=== PATIENT | male | born 1960 | race Caucasian/White ===

== ENCOUNTER 2017-11-19 08:08 | Emergency (ER) | payer OTHER ==
[~2017-11-19] VITALS: Ht 175.3 cm; Wt 104.3 kg
[~2017-11-19 08:08] MED LIST: ADVAIR 250-501 EACH INH; ALBUTEROL2.5 MG/3 M INH; AMITRIPTYLINE100 MG PO; CATAPRES0.3 MG PO; CLONIDINE HCL0.1 MG PO; CLONIDINE PO; DILTIAZEM HCL120 MG PO; DILTIAZEM HCL30 MG PO; DOXYCYCLINE HY100 MG PO; EFFEXOR PO; MEDROL4 M1 PO; METOPROLOL SUCC25 MG PO; METOPROLOL TART25 MG PO; MOBIC7.5 MG PO; MONTELUKAST SOD10 MG PO; OMEPRAZOLE20 MG PO; PROAIR HFA8.5 GM INH; RANITIDINE HCL150 MG PO; SIMVASTATIN20 MG PO; TRAMADOL HCL50 MG PO; VENLAFAXINE HC100 MG PO; VENLAFAXINE HCL75 MG PO
[2017-11-19] MEDS ORDERED: GABAPENTIN300 MG PO (08:22)
[2017-11-19] MEDS ORDERED: OXYCODONE HCL5 MG PO (08:38)
[2017-11-19] MEDS ORDERED: PREDNISONE20 MG PO (08:38)
== END 2017-11-19 09:10 | disposition home or self-care (01) ==
LOC: ED 08:08
DX: M54.41 Lumbago with sciatica, right side (principal); J44.9 Chronic obstructive pulmonary disease, unspecified; I10 Essential (primary) hypertension; Z88.6 Allergy status to analgesic agent; Z88.8 Allergy status to other drugs, medicaments and biological substances; Z87.891 Personal history of nicotine dependence; Z79.899 Other long term (current) drug therapy
CPT/HCPCS: 96372; 99283; J1100

== ENCOUNTER 2017-12-13 09:44 | Inpatient (IN) | payer OTHER ==
[~2017-12-13] VITALS: Ht 175.3 cm; Wt 108.9 kg
--- OUTSIDE RECORDS SUMMARY | ~2017-12-13 | XMS | Encounter Summary ---
Demographics + + + | Address | [address] | | | [place] [address] | + + + | Home Phone | | + + + | Preferred Language | Unknown | + + + | Marital Status | Single | + + + | Confucianist Affiliation | 1013 | + + + | Race | Unknown | + + + | Ethnic Group | Unknown | + + + Author + + + | Author | [facility] | + + + | Organization | [facility] | + + + | Address | Unknown | + + + | Phone | Unavailable | + + + Support + + + + + | Name | Relationship | Address | Phone | + + + + + | Marianna Ly | ECON | [address] | | | | [place], [place] | | | | | [address] | | + + + + + Care Team Providers + +------+ + | Care Mailroom Personnel Name | Role | Phone | + +------+ + | Tahir Hill | PCP | | + +------+ + Reason for Visit +--------+ + | Reason | Comments | +--------+ + | Other | [facility], Pulmonary Function Test | +--------+ + Encounter Details +--------+ + + + + | Date | Type | Department | Care Team | Description | +--------+ + + + + | 11/01/ | Documentati | [facility] | Adelina Chairez, | Other ([facility] [place] | | 2018 | on Only | Cardiology [place] | [facility] | Clinic, Pulmonary | | | | [address] | | Function Test) | | | | [place] | | | | | | [address] | | | | | | [phone] | | | +--------+ + + + + Social History + +-------+ +--------+ + | Tobacco Use | Types | Packs/Day | Years | Date | | | | | Used | | + +-------+ +--------+ + | Former Smoker | | 3 | 35 | Quit: 06/22/2015 | + +-------+ +--------+ + + +---+---+ + | Smokeless Tobacco: | | | Quit: | | Former User | | | 06/22/20 | | | | | 17 | + +---+---+ + + + +---------+ + | Alcohol Use | Drinks/We | oz/Week | Comments | | | ek | | | + + +---------+ + | No | 0 | 0.0 | heavy drinker in past hx. | | | Standard | | | | | drinks or | | | | | | | | | | equivalen | | | | | t | | | + + +---------+ + + + + | Sex Assigned at | Date Recorded | | | | + + + | Not on file | | + + + as of this encounter Plan of Treatment +--------+---------+ + + + | Date | Type | Specialty | Care Team | Description | +--------+---------+ + + + | 01/31/ | Office | Pulmonology | Florian Lujan MD | | | 2018 | Visit | | [address] | | | | | | [place] [address] | | | | | | [phone] | | | | | | | | +--------+---------+ + + + as of this encounter Visit Diagnoses Not on filein this encounter"
--- OUTSIDE RECORDS SUMMARY | ~2017-12-13 | XMS | Encounter Summary ---
Demographics + + + | Address | [address] | | | [place] [address] | + + + | Home Phone | | + + + | Preferred Language | Unknown | + + + | Marital Status | Single | + + + | Yazdanism Affiliation | 1013 | + + + | Race | Unknown | + + + | Ethnic Group | Unknown | + + + Author + + + | Author | [facility] | + + + | Organization | [facility] | + + + | Address | Unknown | + + + | Phone | Unavailable | + + + Support + + + + + | Name | Relationship | Address | Phone | + + + + + | Marianna Ly | ECON | [address] | | | | [address], [place] | | | | | [address] | | + + + + + Care Team Providers + +------+ + | Care Cloth Neutralizer Name | Role | Phone | + +------+ + | Tahir Hill | PCP | | + +------+ + Encounter Details +--------+ + + + + | Date | Type | Department | Care Team | Description | +--------+ + + + + | 11/27/ | Documentati | [facility] | Issac Blackburn MA | | | 2018 | on Only | Cardiology [place] | | | | | | [address] | | | | | | [place] | | | | | | [address] | | | | | | [phone] | | | +--------+ + + + [...] [address] | | | | | | [place] [address] | | | | | | [phone] | | | | | | | | +--------+---------+ + + + as of this encounter Visit Diagnoses Not on filein this encounter"
--- OUTSIDE RECORDS SUMMARY | ~2017-12-13 | XMS | Encounter Summary ---
Demographics + + + | Address | [address] | | | [place] [address] | + + + | Home Phone [...] + + + | Author | [facility] | + + + | Organization | [facility] | + + + | Address | Unknown | + + + | Phone | Unavailable | + + + Support + + + + + | Name | Relationship | Address | Phone | + + + + + | Marianna Ly | ECON | [address] | | | | | [address], [place] | | | | | [address] | | + + + + + Care Team Providers + +------+ + | Care Electron Gun Inspector Name | Role | Phone | + [...] [place] | | | | | | [address] | | | | | | [phone] | | | +--------+ + + + [...] | | | | | [place] [address] | | | | | | [phone] | | | | | | | | +--------+---------+ + + + as of this encounter Visit Diagnoses Not on filein this encounter"
--- OUTSIDE RECORDS SUMMARY | ~2017-12-13 | XMS | Encounter Summary ---
Demographics + + + | Address | [address] | | | [place] [address] | + + + | Home Phone | | + + + | Preferred Language | Unknown | + + + | Marital Status | Single | + + + | Taoist Affiliation | 1013 | + + + | Race | Unknown | + + + | Ethnic Group | Unknown | + + + Author + + + | Author | [facility] | + + + | Organization | [facility] | + + + | Address | Unknown | + + + | Phone | Unavailable | + + + Support + + + + + | Name | Relationship | Address | Phone | + + + + + | Marianna Ly | ECON | [address] | | | | | [address], [place] | | | | | [address] | | + + + + + Care Team Providers + +------+ + | Care Beater Room Supervisor Name | Role | Phone | + +------+ + | Tahir Hill | PCP | | + +------+ + Encounter Details +--------+ + + + + | Date | Type | Department | Care Team | Description | +--------+ + + + + | 10/09/ | Telephone | [facility] | Lisandra Hurtado, | | | 2017 | | Pulmonology [address] | SLATE CUTTER OPERATOR | | | | | [address] | | | | | | [place] | | | | | | [address] | | | | | | [phone] | | | +--------+ + + + [...] | | | | | [place] [address] | | | | | | [phone] | | | | | | | | +--------+---------+ + + + as of this encounter Visit Diagnoses Not on filein this encounter"
--- OUTSIDE RECORDS SUMMARY | ~2017-12-13 | XMS | Clinical Summary ---
Demographics + + + | Address | [address] | | | [place] [address] | + + + | Home Phone | | + + + | Preferred Language | Unknown | + + + | Marital Status | Single | + + + | Jehovah'S Witness Affiliation | 1013 | + + + | Race | Unknown | + + + | Ethnic Group | Unknown | + + + Author + + + | Author | [facility] | + + + | Organization | [facility] | + + + | Address | Unknown | + + + | Phone | Unavailable | + + + Support + + + + + | Name | Relationship | Address | Phone | + + + + + | Marianna Ly | ECON | [address] | | | | [address], [place] | | | | | [address] | | + + + + + Care Team Providers + +------+ + | Care Account Development Specialist Name | Role | Phone | [...] | 2018 | on Only | | LOAN REVIEW OFFICER | JAMES Hill) | +--------+ + + + + | 11/01/ | Documentati | | Adelina Chairez, | Other ([facility] | | 2017 | on Only | | LOAN REVIEW OFFICER | Clinic, Pulmonary | | | | [...] | | | | | | type ([facility]); | | | | | | Thoracoabdominal [...] | | | 2017 | | | LOAN REVIEW OFFICER | | +--------+ + + + + [...] [address] | | | | | | [place] [address] | | | | | | [phone] | | | | | | | [...] Laboratory | + + + | | [address] [place] [address] | + + + + + | [...] | e': 0.07 m/s Lateral E/e': 7.35 Gas Combustion Engineer: Authenticated | | by: JORGE NOVAK MD Report Date/Time: 10-30-2017 17:52:14 | + + + + | Procedure Note | + + | Jayce, Rad Results In - 10/30/2017 6:00 PM PST Patient Name: Abena Win of | | : 1960ccession: [id number] Physician: JORGE NOVAK MD | | INDICATIONS [...] mlLAESV Index (A-L): 24.66 ml/m2LAAs A2C: 15.85 lb3WHPND A-L | | A2C: 42.05 mlLALs A2C: 5.07 cmLAAs A4C: 20.65 ip4ILVUX A-L A4C: 68.39 mlLALs | | A4C: 5.29 cmRAAs: 16.87 [id number] A-L: 44.78 mlRAESV MOD: 45.69 mlRALs: 5.39 | | cmTAPSE: 2.19 cmAV maxP.05 mmHgAV meanP.73 mmHgAV Vmax: 1.32 m/Mariam | | Vmean: 0.90 m/Mariam VTI: 29.89 cmAVA Vmax: 3.41 cm2AVA (VTI): 3.01 md1MRZM Vmax: | | 0.00 cm2/m2AVAI (VTI): 0.00 cm2/m2LVOT maxP.63 mmHgLVOT meanP.94 mmHgLVSI | | Dopp: 40.60 ml/m2LVSV Dopp: 90.15 mlLVOT Vmax: 1.07 m/sLVOT Vmean: 0.63 m/sLVOT | | VTI: 21.41 cmMV A Porter: 0.37 m/sMV DecT: 232.01 msMV E Porter: 0.58 m/sMV E/A | | Ratio: 1.53 Septal e': 0.08 m/sSeptal E/e': 7.16 Lateral e': 0.07 m/sLateral | | E/e': 7.35 Gas Combustion Engineer: Authenticated by: Jean Marie LEMUS Date/Time: 10-30-2017 [...] | |Lateral E/e': 7.35 | | | |Gas Combustion Engineer: | |Authenticated by: JORGE NOVAK MD | [...] + | Blood | [facility] [address] | | | [address] | + + + Transferrin (10/17/2017 7:42 AM) + +--------+ + | Component | Value | Ref Range | + +--------+ + | TRANSFERRIN | 245.11 | 180 - 329 | + +--------+ + + + + | Specimen | Performing Laboratory | + + + | Blood | [facility] [address] | | | [address] | + + + Ferritin (10/17/2017 7:42 AM) + +-------+ + | Component | Value | Ref Range | + +-------+ + | FERRITIN | 162.8 | 30 - 400 ng/mL | + +-------+ + + + + | Specimen | Performing Laboratory | + + + | Blood | [facility] [address] [place], [facility] [address] [place], [place] | | | [address] | + + + Lipid panel (10/17/2017 [...] | + + + | Blood | [facility] [address] [place] [address] [facility] [address] [place], [place] | | | [address] | + + + Comprehensive metabolic panel [...] + | Blood | [facility] [address] [place] | | | [address] | + + + CBC W/Auto Diff [...] | + + + | Blood | [facility] [address] [place] [address], [place] | | | [address] | + + + EKG STANDARD 12 [...] + + + + | Calculated P [place] | 42 | degrees | + + + + | Calculated R [place] | 53 | degrees | + + + + | Calculated T [place] | 60 | degrees | + + + + | Diagnosis | Please refer to Providers office visit note | | | | for Providers Interpretation.Confirmed by | | | | [facility] [place] Read Only, PETRA Martino ([id number]), | | | | loan expeditor Issac Blackburn ([id number]) on 10/16/2017 | | | | 4:56:19 PM | | + + + + + + + | Specimen | Performing Laboratory | + + + | | [facility] [address] [address] | + + + from Last 3 [...] | | [place] | | | | [address] | | | HOME HEALTH REGISTERED NURSE | | | | | + +--------+ [...] | em[place] | | | [address] | [address] | + +--------+ +--------+ + +
--- OUTSIDE RECORDS SUMMARY | ~2017-12-13 | XMS | Encounter Summary ---
Demographics + + + | Address | [address] | | | [place] [address] | + + + | Home Phone | | + + + | Preferred Language | Unknown | + + + | Marital Status | Single | + + + | Mandaeism Affiliation | 1013 | + + + | Race | Unknown | + + + | Ethnic Group | Unknown | + + + Author + + + | Author | [facility] | + + + | Organization | [facility] | + + + | Address | Unknown | + + + | Phone | Unavailable | + + + Support + + + + + | Name | Relationship | Address | Phone | + + + + + | Marianna Ly | ECON | [address] | | | | | [address], [place] | | | | | [address] | | + + + + + Care Team Providers + +------+ + | Care Lead Systems Analyst Name | Role | Phone | + [...] [place] | | | | | | [address] | | | | | | [phone] | | | +--------+ + + + [...] [address] | | | | | | [place] [address] | | | | | | [phone] | | | | | | | [...] | + + + | Blood | [facility] [place] | | | [address] | + + + Comprehensive metabolic panel [...] + + | Blood | [facility] [address] [place] [address], [facility] [address] [place] | | | [address] | + + + Transferrin (10/17/2017 7:42 AM) + +--------+ + | Component | Value | Ref Range | + +--------+ + | TRANSFERRIN | 245.11 | 180 - 329 | + +--------+ + + + + | Specimen | Performing Laboratory | + + + | Blood | [facility] [address] [place] [address] [place] | | | [address] | + + + Ferritin (10/17/2017 7:42 AM) + +-------+ + | Component | Value | Ref Range | + +-------+ + | FERRITIN | 162.8 | 30 - 400 ng/mL | + +-------+ + + + + | Specimen | Performing Laboratory | + + + | Blood | [facility] [address] | | | [address] | + + + Iron panel (10/17/2017 [...] + | Blood | [facility] 1100 [facility] [address] [place], [place] | | | [address] | + + + CBC W/Auto Diff [...] + | Blood | [facility] [address] [place] | | | [address] | + + + in this encounter Visit Diagnoses Not on filein this encounter"
--- OUTSIDE RECORDS SUMMARY | ~2017-12-13 | XMS | Encounter Summary ---
Demographics + + + | Address | [address] | | | [place] [address] | + + + | Home Phone | | + + + | Preferred Language | Unknown | + + + | Marital Status | Single | + + + | Latter Day Affiliation | 1013 | + + + | Race | Unknown | + + + | Ethnic Group | Unknown | + + + Author + + + | Author | [facility] | + + + | Organization | [facility] | + + + | Address | Unknown | + + + | Phone | Unavailable | + + + Support + + + + + | Name | Relationship | Address | Phone | + + + + + | Marianna Ly | ECON | [address] | | | | [address], [place] | | | | | [address] | | + + + + + Care Team Providers + +------+ + | Care Head Of Visual Merchandising Name | Role | Phone | + +------+ + | Tahir Hill SHIP JOINER | PCP | | + +------+ + [...] | | Required | | Essential | CENTRAL SUPPLY NURSE [address] | Sleep | | | | | hypertension | [address]ra [address] | Disorders | | | | | with goal | [facility] | [facility] | | | | | blood | [place], [place] | HOSPITAL | | | | | pressure | [address] | [address] | | | | | less than | Phone: | [address] | | | | | 130/80 | [phone] | [place], [place] | | | | | Chronic | Fax: | [address] | | | | | obstructive | [phone] | Phone: | | | | | pulmonary | | [phone] | | | | | disease, | | Fax: | | | | | unspecified | | [phone] | | | | | COPD type | | | | | | | ([facility]) | | | | | | [...] | | / Cardiology | (primary) | CENTRAL SUPPLY NURSE [address] | CENTRAL SUPPLY NURSE [address] | | | | | hypertension | Mayra Ruby | Mayra Ruby | | | | | f/u | [facility] | [facility] | | | | | annual-Vogel | [place], [place] | [place] | | | | | transfer | [address] | [address] Phone: | | | | | Procedures | Phone: | [phone] | | | | | PA OFFICE | [phone] | Fax: | | | | | OUTPATIENT | Fax: | [phone] | | | | | VISIT LEVEL | [phone] | | | | | | 1 [...] | | 2018 | Visit | Cardiology [place] | NASREEN Chen [address] | Dx); Essential | | | | [address] | Mayra Lopez F | hypertension with | | | | [address] | [place] [address] | goal blood pressure | | | | [place] [address] | [phone] | less than 130/80; | | | | [phone] | | Hyperlipidemia, | | | | [...] ou fasting labs to be done at [facility] and also ordered you an Echo to be done at [facility] Take Vit b12 again I have ordered refill on Atorvastatin and metoprolol for one year Consider using light compression knee high socks, look like soccer socks to help with varic ose veins I have referred you to Sleep lab at [facility] for sleep apnea evaluation See me [...] of Dr. Lujan on July [address] [facility] documents that his COPD has been well-controlled [...] without it. 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 He also has not had any [...] so I have referred him to the [facility] sleep lab for further evaluation of his [...] past surgical history. Problem list. Domonique ArenasNASREEN [facility] Cardiology 10/16/2017in this encounter Plan of Treatment +--------+---------+ + + + | Date | Type | Specialty | Care Team | Description | +--------+---------+ + + + | 01/31/ | Office | Pulmonology | Florian Lujan MD | | | 2017 | Visit | | [address] | | | | | | [place] [address] | | | | | | [phone] | | | | | | | [...] Laboratory | + + + | | [address] [place] [address] | + + + + + | [...] | e': 0.07 m/s Lateral E/e': 7.35 Network Designer: Authenticated | | by: JORGE NOVAK MD Report Date/Time: 10-30-2017 17:52:14 | + + + + | Procedure Note | + + | Jayce, Rad Results In - 10/30/2017 6:00 PM PST Patient Name: Abena Win of | | : 1960ccession: [id number] Physician: JORGE NOVAK MD | | INDICATIONS [...] mlLAESV Index (A-L): 24.66 ml/m2LAAs A2C: 15.85 si1JPSWQ A-L | | A2C: 42.05 mlLALs A2C: 5.07 cmLAAs A4C: 20.65 mh9QIVAC A-L A4C: 68.39 mlLALs | | A4C: 5.29 cmRAAs: 16.87 qh5ICTGI A-L: 44.78 mlRAESV MOD: 45.69 mlRALs: 5.39 | | cmTAPSE: 2.19 cmAV maxP.05 mmHgAV meanP.73 mmHgAV Vmax: 1.32 m/Mariam | | Vmean: 0.90 m/Mariam VTI: 29.89 cmAVA Vmax: 3.41 cm2AVA (VTI): 3.01 vp0VTUX Vmax: | | 0.00 cm2/m2AVAI (VTI): 0.00 cm2/m2LVOT maxP.63 mmHgLVOT meanP.94 mmHgLVSI | | Dopp: 40.60 ml/m2LVSV Dopp: 90.15 mlLVOT Vmax: 1.07 m/sLVOT Vmean: 0.63 m/sLVOT | | VTI: 21.41 cmMV A Porter: 0.37 m/sMV DecT: 232.01 msMV E Porter: 0.58 m/sMV E/A | | Ratio: 1.53 Septal e': 0.08 m/sSeptal E/e': 7.16 Lateral e': 0.07 m/sLateral | | E/e': 7.35 Network Designer: Authenticated by: Jean Marie LEMUS Date/Time: 10-30-2017 [...] | |Lateral E/e': 7.35 | | | |Network Designer: | |Authenticated by: JORGE NOVAK MD | [...] + + + + | Calculated P [place] | 42 | degrees | + + + + | Calculated R [place] | 53 | degrees | + + + + | Calculated T [place] | 60 | degrees | + + + + | Diagnosis | Please refer to Providers office visit note | | | | for Providers Interpretation.Confirmed by | | | | [facility] Read Only, PETRA Martino (502), | | | | assignment desk editor Issac Blackburn ([id number]) on 10/16/2017 | | | | 4:56:19 PM | | + + + + + + + | Specimen | Performing Laboratory | + + + | | [facility] [address] [facility] [address] | + + + in this encounter [...]
--- OUTSIDE RECORDS SUMMARY | ~2017-12-13 | XMS | Clinical Summary ---
Demographics + + + | Address | [address] | | | [place] [address] | + + + | Home Phone | | + + + | Preferred Language | Unknown | + + + | Marital Status | | + + + | Scientology Affiliation | 1013 | + + + | Race | Unknown | + + + | Ethnic Group | Unknown | + + + Author + + + | Author | [facility] | | | and [place] | + + + | Organization | [facility] | | | and [...] [address], [place] | | | | | [address] | | + + + + + Care Team Providers + +------+ + | Care Automotive Professional Name | Role | Phone | + [...] | | | | | | | ([facility]) | | | | | | | [...] | 1/20 | | e | | ([facility]) | | | | 16 | | [...] + + + + + | Overview: [facility] | + + + +---+ [...] | MODA | xxxxxxxx | Medica | +[id number]- | | | MEDICAID HMO | HEALTH [...] emma | | | [address] | [place] [address] | + +--------+ +--------+ + +
--- OUTSIDE RECORDS SUMMARY | ~2017-12-13 | XMS | Encounter Summary ---
Demographics + + + | Address | [address] | | | [place] [address] | + + + | Home Phone [...] + + + | Author | [facility] | + + + | Organization | [facility] | + + + | Address | Unknown | + + + | Phone | Unavailable | + + + Support + + + + + | Name | Relationship | Address | Phone | + + + + + | Marianna Ly | ECON | [address] | | | | | [address], [place] | | | | | [address] | | + + + + + Care Team Providers + +------+ + | Care Armed Guard Name | Role | Phone | + [...] hypertension with | | | | | [place] [address] | goal blood pressure | | | | | [phone] | less than 130/80; | | | [...] [address] | | | | | | [place] [address] | | | | | | [phone] | | | | | | | [...] Laboratory | + + + | | [address] [address] | + + + + + | [...] | e': 0.07 m/s Lateral E/e': 7.35 Compound Filler: Authenticated | | by: JORGE NOVAK MD Report Date/Time: 10-30-2017 17:52:14 | + + + + | Procedure Note | + + | Jayce, Rad Results In - 10/30/2017 6:00 PM PST Patient Name: Abena Win of | | : 1960ccession: [id number] Physician: JORGE NOVAK MD | | INDICATIONS [...] mlLAESV Index (A-L): 24.66 ml/m2LAAs A2C: 15.85 [id number] A-L | | A2C: 42.05 mlLALs A2C: 5.07 cmLAAs A4C: 20.65 bl2EBZRL A-L A4C: 68.39 mlLALs | | A4C: 5.29 cmRAAs: 16.87 qm2DILHY A-L: 44.78 mlRAESV MOD: 45.69 mlRALs: 5.39 | | cmTAPSE: 2.19 cmAV maxP.05 mmHgAV meanP.73 mmHgAV Vmax: 1.32 m/Mariam | | Vmean: 0.90 m/Mariam VTI: 29.89 cmAVA Vmax: 3.41 cm2AVA (VTI): 3.01 wm2GBKS Vmax: | | 0.00 cm2/m2AVAI (VTI): 0.00 cm2/m2LVOT maxP.63 mmHgLVOT meanP.94 mmHgLVSI | | Dopp: 40.60 ml/m2LVSV Dopp: 90.15 mlLVOT Vmax: 1.07 m/sLVOT Vmean: 0.63 m/sLVOT | | VTI: 21.41 cmMV A Porter: 0.37 m/sMV DecT: 232.01 msMV E Porter: 0.58 m/sMV E/A | | Ratio: 1.53 Septal e': 0.08 m/sSeptal E/e': 7.16 Lateral e': 0.07 m/sLateral | | E/e': 7.35 Compound Filler: Authenticated by: Jean Marie LEMUS Date/Time: 10-30-2017 [...] | |Lateral E/e': 7.35 | | | |Compound Filler: | |Authenticated by: JORGE NOVAK MD | [...]
--- OUTSIDE RECORDS SUMMARY | ~2017-12-13 | XMS | Encounter Summary ---
Demographics + + + | Address | [address] | | | [place] [address] | + + + | Home Phone [...] + + + | Author | [facility] | + + + | Organization | [facility] | + + + | Address | Unknown | + + + | Phone | Unavailable | + + + Support + + + + + | Name | Relationship | Address | Phone | + + + + + | Marianna Ly | ECON | [address] | | | | [address], [place] | | | | | [address] | | + + + + + Care Team Providers + +------+ + | Care Strapping Machine Tender Name | Role | Phone | + +------+ + | [place] SILK CONDITIONER | PCP | | + +------+ + [...] | | | | | hypertension | LURER [address] | | | | | | with goal | [place] | | | | | | blood | John F | | | | | | pressure | [place] | | | | | | less than | [id number] | | | | | | 130/80 | Phone: | | | | | | Hyperlipidem | [phone] | | | | | | ia, | Fax: | | | | | | unspecified | [phone] | | | | | | hyperlipidem [...] | | | [address] | [place] [address] | less than 130/80 | | | | [place] [address] | [phone] | (Primary Dx); | | | | [phone] | | Hyperlipidemia, | | | | [...] you an Echo to be done at [facility] in one year, see me back in one year in this encounter Progress Notes Mattiedolores Domonique ChenNASREEN - 11/27/2017 11:00 AM PDTFormatting of this note may be differen t from the original. Date of visit: 11/27/2017 Primary Care Physician: TAHIR HILL CHIEF COMPLAINT: Chief Complaint Patient presents with Follow-up 2 month - echo STA 10/30/17 HISTORY OF PRESENT ILLNESS: Mr. Joselin Win, [place], is a 57-year-old man who is here [...] and platelet count. His Echo performed at [facility] on October 30, 2017 reported a [...] be seen by Dr. Glez at the [facility] sleep lab in January to get [...] marijuana, crack, mushrooms. Exercises with tasiks in [employer], walking, a nd tolerates. 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 [...] EK2015: Normal sinus rhythm. Rate 63 bpm, AK 144 ms, QRS 94 ms, QTC 407 ms, perso phoenix reviewed by me EK2017: Normal sinus rhythm. Rate 63 bpm, AK 146 ms, QRS 96 ms, QTC 427 [...] which [facility]. His labs performed 10/17/17 showed normal [...] and platelet count. His Echo performed at [facility] on October 30, 2017 reported a [...] He will be following up with the [place] sleep lab in January, and hopefully will [...] past surgical history. Problem list. NASREEN Boyer [facility] Cardiology 11/27/2017in this encounter Plan of Treatment +--------+---------+ + + + | Date | Type | Specialty | Care Team | Description | +--------+---------+ + + + | 01/31/ | Office | Pulmonology | Florian Lujan MD | | | 2018 | Visit | | [address] | | | | | | [place] [address] | | | | | | [phone] | | | | | | | [...]
--- OUTSIDE RECORDS SUMMARY | ~2017-12-13 | XMS | Encounter Summary ---
Demographics + + + | Address | [address] | | | [place] [address] | + + + | Home Phone [...] + + + | Author | [facility] | + + + | Organization | [facility] | + + + | Address | Unknown | + + + | Phone | Unavailable | + + + Support + + + + + | Name | Relationship | Address | Phone | + + + + + | Marianna Ly | ECON | [address] | | | | [address], [place] | | | | | [address] | | + + + + + Care Team Providers + +------+ + | Care Professional Athletes Coach Name | Role | Phone | + [...] | on Only | Cardiology Dalila | JAVASCRIPT DEVELOPER | JAMES Hill) | | | | [address] | | | | | | [place] | | | | | | [address] | | | | | | [phone] | | | +--------+ + + + [...] | | | | | [place] [address] | | | | | | [phone] | | | | | | | | +--------+---------+ + + + as of this encounter Visit Diagnoses Not on filein this encounter"
[~2017-12-13 09:44] MED LIST changes: +GABAPENTIN300 MG PO; +OXYCODONE HCL5 MG PO; +PREDNISONE20 MG PO
[2017-12-19] MEDS ORDERED: NORVASC5 MG PO (15:57)
[2017-12-19] MEDS ORDERED: LIPITOR40 MG PO (15:58)
[2017-12-19] MEDS ORDERED: HYDROCHLOROTH12.5 MG PO (15:59)
[2017-12-19] MEDS ORDERED: DICLOFENAC SODI50 MG PO (16:01)
[2017-12-19] MEDS ORDERED: PROTONIX40 MG PO (16:02)
[2017-12-19] MEDS ORDERED: FLOMAX0.4 MG PO (16:03)
--- NOTE | 2017-12-19 16:55 | NUR ---
PREADMIT PT CARE NOTE THIS IS A 57 YEAR OLD MALE THAT IS SCHEDULED TO HAVE A RIGHT TOTAL HIP ARTHROPLASTY ON 12/26/[address] MIRIAM BENTON. PT STATES THAT HE LIVES ALONE IN A TRAVEL TRAILER WITH 3 STEPS INTO IT. STATES HE HAS A VERY SMALL TUB/SHOWER COMBINATION BUT IS GOING TO BE USING THE SHOWER PROVIDED BY THE [facility], IT IS A WALK IN SHOWER. STATES HE DOES NEED A FRONT WHEELED WALKER AND WOULD LIKE IT FROM [facility]. STATES HE IS SUPPOSED TO WEAR A CPAP BUT JUST CAN'T SLEEP WITH IT ON, MAKES HIM WORSE TO WEAR IT. SO HE HASN'T WORN IT IN A VERY LONG TIME AND IS SCHEDULED FOR ANOTHER SLEEP STUDY IN JANUARY. PT SEES RAFAELA MAHAN FOR HIS PCP AND GOES TO [facility] FOR HIS MEDS. COPY SENT TO DR MORSE OFFICE.
[2017-12-26] MEDS ORDERED: INCRUSE ELLI62.5 MCG INH (11:19)
[2017-12-26] MEDS ORDERED: RA CENTRAL-VIT1 EAC8 PO (11:22)
[2017-12-26] MEDS ORDERED: ADVAIR 500-501 EACH INH (11:22)
[2017-12-26] MEDS ORDERED: VITAMIN B-1100 MG PO (11:24)
--- NOTE | 2017-12-26 12:05 | NUR ---
12/26/17 1204 Gilda Yu 1155 PATIENT ARRIVES TO PACU AWAKE, BUT DROWSY. RESP EVEN AND UNLABORED, MASK AT 6 LITERS. ENCOURAGED TO DEEP BREATHE AND COUGH. 1200 PATIENT MORE AWAKE, ASKING QUESTIONS APPROPRIATELY. CONTINUES TO WEAR MASK AT 6 LITERS. CONTINUE TO ENCOURAGE TO DEEP BREATHE AND COUGH.
--- NOTE | 2017-12-26 12:50 | NUR ---
PT ARRIVED TO ROOM 108 FROM PACU, BEDSIDE REPORT FROM BREANA BINDER TECHNICIAN. PT REPORTS NO NAUSEA OR PAIN AT THIS TIME PT ON ROOM, HE HAS INTERMITTEN DE-SATURATIONS DOWN TO 85%, PT PLACED ON 2L FOR NOW WILL MONITOR.
--- NOTE | 2017-12-26 13:30 | NUR ---
PATIENT SITTING UP IN BED AND EATING. RN IN ROOM. PATIENTS FRIEND IN ROOM VISITING. CALL LIGHT WITHIN REACH. NO OTHER NEEDS AT THIS TIME.
--- NOTE | 2017-12-26 15:04 | NUR ---
ANTIBIOTIC AND TORADOL GIVEN AT THIS TIME. PT RESTING IN BED AND DENIES PAIN. PT IN GOOD SPIRITS AND DENIES FURTHER NEEDS. DENIES FURTHER NEEDS. CALL LIGHT WITHIN REACH.
--- NOTE | 2017-12-26 15:31 | NUR ---
MED REC COMPLETE WITH [facility] REFILL HISTORY AND PATIENT INTERVIEW.
--- NOTE | 2017-12-26 15:35 | NUR ---
PT BLADDER SCANNED AT THIS TIME FOR 465ML AT THIS TIME
--- NOTE | 2017-12-26 16:16 | NUR ---
PATIENT SITTING UP IN BED VISITING WITH A VISITOR. FRESH ICE WATER. PATIENT STATES PAIN LEVEL IS A 3 OUT OF 10. PATIENT STATES HE STILL DOESN'T HAVE A NEED TO GO TO THE BATHROOM YET. CALL LIGHT WITHIN REACH. NO OTHER NEEDS AT THIS TIME.
--- NOTE | 2017-12-26 16:54 | NUR ---
PT UP TO BATHROOM WITH PHYSICAL THERAPY AND THIS RN. PT UNABLE TO VOID. PT AMBULATING IN HALLS WITH PHYSICAL THERAPY AND THEN WILL TRY TO URINATE AGAIN, IF UNABLE TO, WILL BLADDER SCAN AND IF NEEDED PLACE TEIXEIRA
--- NOTE | 2017-12-26 16:55 | NUR ---
PATIENT WALKING IN HALLS WITH PT.
--- NOTE | 2017-12-26 17:24 | NUR ---
PT BLADDER SCANNED FOR 776ML. PT AGREEABLE TO HAVE TEIXEIRA PLACED.
--- NOTE | 2017-12-26 18:15 | NUR ---
PT HAS BEEN UP WITH ONE PERSON ASSIST FWW. HE HAS REPORTED 2/10 PAIN WITH ACTIVITY AND THAT IS TOLERABLE PER PT REPORT. HE HAS TEIXEIRA PLACED. HAS WORKED WITH PHYSICAL THERAPY THIS AFTERNOON, AMBULATED IN HALLS AND WORKED WITH CRISTO IN PHYSICAL THERAPY ROOM. HE HAS HAD NO NAUSEA TOLERATING REGULAR CARDIAC DIET WELL. DRESSING IS CDI. PT ON ROOM AIR AT THIS TIME OXYGEN SATURATION 98%. PT WAS GIVEN NUBAIN FOR ITCHING ONCE THAT WAS EFFECTIVE.
--- NOTE | 2017-12-26 18:37 | NUR ---
THIS SPEECH/LANGUAGE THERAPIST ASSISTED PATIENT FROM THE CHAIR TO THE BED. 1 PERSON ASSIST WITH FWW. PATIENT IS NOW SITTING UP IN BED RESTING AND WATCHING TV. FRESH ICE WATER. ICE BAGS. PATIENT STATES PAIN IS 8 OUT OF 10 AFTER TRANSFER. RN NOTIFIED. CALL LIGHT WITHIN REACH. NO OTHER NEEDS AT THIS TIME.
--- NOTE | 2017-12-26 19:38 | NUR ---
IN ROOM FOR REPORT. PT IS AWAKE IN BED AND HAS PAIN, DAY SHIFT RN WILL GET PT IV PAIN MEDS, PT DENIES FURTHER NEEDS AT THIS TIME. CALL LIGHT IS WITHIN REACH.
--- NOTE | 2017-12-26 20:04 | NUR ---
IN ROOM GIVING MEDICATIONS, PT STATES PAIN IS A 4/10 AT THIS TIME AND IS COMFORTABLE. PT DENIES FURTHER NEEDS AT THIS TIME.
--- NOTE | 2017-12-26 21:25 | NUR ---
PT IS AWAKE IN BED, EVENING MEDICATIONS WERE GIVEN. PT REPORTS PAIN IS TOLERABLE AT THIS TIME. DRESSING IS CDI AND ICE PACKS ARE IN PLACE. SCD'S AND HEEL PROTECTORS ARE IN PLACE. PT IS ON RA AND DENIES NAUSEA. PT IS READY FOR BED AND CALL LIGHT IS IN REACH.
--- NOTE | 2017-12-26 23:21 | NUR ---
PT IS RESTING WITH EYES CLOSED, RESPIRATIONS ARE EVEN AND NONLABORED. CALL LIGHT IS WITHIN REACH.
--- NOTE | 2017-12-27 01:08 | NUR ---
PT IS RESTING WITH EYES CLOSED, RESPIRATIONS ARE EVEN AND NONLABORED. CALL LIGHT IS WITHIN REACH.
--- NOTE | 2017-12-27 01:55 | NUR ---
WOKE PT TO GIVE MEDS, HE REPORTS PAIN IS TOLERABLE AT THIS TIME. REPOSITIONED PT IN BED. CALL LIGHT IS WITHIN REACH.
--- NOTE | 2017-12-27 04:42 | NUR ---
PT DID WELL THROUGH THE NIGHT WITH SCHEDULED TORADOL AND TYLENOL. HE HAS PRN DILAUDID IF NEEDED, WHICH HAS HAS NOT ASKED FOR THROUGH THE NIGHT. 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 INCISION SITE IS CDI WITH SOME BRUISING NOTED, HE HAS ALTERNATED ICE PACKS AND IS WEARING SCD'S, HEEL PROTECTORS, ABDUCTOR PILLOW, AND PULSE OX. URINE OUTPUT IS QS, PT HAS NOT HAD A BM YET BUT IS PASSING GAS.
--- NOTE | 2017-12-27 04:48 | NUR ---
PT IS RESTING WITH EYES CLOSED, RESPIRATIONS ARE EVEN AND NONLABORED. CALL LIGHT IS WITHIN REACH.
--- NOTE | 2017-12-27 06:16 | NUR ---
REMOVED TEIXEIRA PER ORDER.
--- NOTE | 2017-12-27 11:15 | NUR ---
PATIENT SITTING UP IN CHAIR RELAXING. PATIENTS EYES ARE CLOSED AND APPEARS TO BE SLEEPING. CALL LIGHT WITHIN REACH. NO OTHER NEEDS AT THIS TIME.
--- NOTE | 2017-12-27 12:11 | NUR ---
PT SITTING IN CHAIR-ALERT, ORIENTED AND VISITING WITH A FRIEND. PT SEEMED TO BE IN GOOD SPIRITS, SAID HE PLANS TO LEAP TALL BLDGS SOON! EXTENDED A BLESSING WILL FOLLOW NEEDED
--- NOTE | 2017-12-27 12:12 | NUR ---
PATIENT SITTING UP IN CHAIR AND APPEARS TO BE SLEEPING. PATIENT WOKE UP WHEN THIS FILLER AND TRIMMER CAME IN. PATIENT STATES THAT HE HASN'T SLEPT WELL AT ALL LAST NIGHT SO THAT IS WHY HE HAS BEEN SLEEPY TODAY. FRESH ICE PACK. CALL LIGHT WITHIN REACH. NO OTHER NEEDS AT THIS TIME.
--- NOTE | 2017-12-27 13:17 | NUR ---
PT SITTING UP IN RECLINER REPORTS PAIN AT REST 5-6/10. 4MG PO DILAUDID ADMINISTERED AT THIS TIME, ICE TO SURGICAL SITE. PT ON ROOM AIR, GOOD APPETITE, RIGHT HIP DRESSING CDI
--- NOTE | 2017-12-27 13:22 | NUR ---
PT BLADDER SCANNED AT THIS TIME FOR 368ML AT THIS TIME. PT GIVEN A CUP OF COFFEE AND ENCOURAGED TO DRINK MORE WATER.
--- NOTE | 2017-12-27 13:28 | NUR ---
PATIENT ATE 100% OF LUNCH. PATIENT CALLED AND HAD SPILT COFFEE ALL OVER HIS GOWN. PATIENT CLEANED UP AND NEW GOWN IN PLACE.
--- NOTE | 2017-12-27 14:25 | NUR ---
PATIENT SITTING UP IN CHAIR. PATIENT STATES THAT HE HAS NOT BEEN ABLE TO VOID SINCE TEIXEIRA REMOVAL THIS MORNING. PATIENT SEEMED VERY DROWSY WHILE TAKING VITALS. THE PATIENT SEEMED LIKE HE HAD A HARD TIME KEEPING HIS EYES OPEN. RN NOTIFIED ABOUT NOT VOIDING. CALL LIGHT WITHIN REACH. NO OTHER NEEDS AT THIS TIME.
--- NOTE | 2017-12-27 15:15 | NUR ---
PATIENT GOT BACK TO THE ROOM AFTER WALKING THE HALLS WITH PT AND A WALKER. PATIENT VOIDED APPROXIMATELY 150 MLS IN THE BATHROOM. VERY CONCENTRATED URINE. PATIENT BACK TO RECLINER AND GIVEN 5MG PO DILAUDID FOR 8/10 RT HIP PAIN.
--- NOTE | 2017-12-27 16:05 | NUR ---
TALKED TO PT AGAIN ABOUT A WALKER AND HE STATES HE IS GOING TO USE 2 CANES IN HIS RV TRAILER AND WILL BE USING THE WALKER EVERY WHERE ELSE. FAXED CHART NOTES TO [facility]. THESE INCLUDED FACESHEET, ORDER, H AND P, PROG NOTES, PT EVAL AND NOTES. RECIEVED FAX CONFIRMATION. ALSO CALLED AND SPOKE WITH SETH FROM [facility].
--- NOTE | 2017-12-27 16:36 | NUR ---
PATIENT SITTING UP IN CHAIR RELAXING. CALL LIGHT WITHIN REACH. NO OTHER NEEDS AT THIS TIME.
--- NOTE | 2017-12-27 17:40 | NUR ---
THIS CESSATION SYSTEMS OUTREACH SPECIALIST AND PORSHA VASQUEZ ASSISTED PATIENT TO THE RESTROOM. 2 PERSON WITH FWW. PATIENT VOIDED 500ML. PATIENT IS NOW SITTING UP IN BED WATCHING TV. FRESH ICE WATER. FRESH ICE PACKS. CALL LIGHT WITHIN REACH. HIP WEDGE IN PLACE. NO OTHER NEEDS AT THIS TIME.
--- NOTE | 2017-12-27 17:45 | NUR ---
PATIENT JUST VOIDED 500MLS IN THE COMMODE.AMBULATED FROM RECLINER TO BATHROOM TO BED WITH 1PSBA AND WALKER. PAIN IN THE RT HIP IS 4/10 AND GIVEN 8MG PO DILUADID.
--- NOTE | 2017-12-27 18:36 | NUR ---
PATIENT WAS HAVING WAS UNABLE TO VOID THIS AM AFTER TEIXEIRA DC'D. I TOOK PATIENT OVER FROM PORSHA TOUSSAINT ABOUT 3PM. SHORTLY AFTER PATIENT VOIDED APPROXIMATELY 150MLS. AROUND 1730 PATIENT VOIDED 500MLS IN THE COMMODE. PATIENT'S PAIN IS A 7-8/10 WHEN AMBULATING AND 3-4/10 WHEN SITTING OR LAYING DOWN. PATIENT GIVEN 8 MG OF DILUADID PO AT ABOUT 1745. PATIENT'S PAIN IS AT 3/10 CURRENTLY WHICH IS HIS PAIN GOAL. IV SL. PATIENT EATING AND TAKING FLUIDS WELL.
--- NOTE | 2017-12-27 19:56 | NUR ---
REPORT RECIEVED FROM DAY SHIFT RN. PATIENT RESTING IN BED WATCHING TV. PATIENT DECLINES ANY NEEDS AT THIS TIME. CALL LIGHT WITHIN REACH.
--- NOTE | 2017-12-27 20:18 | NUR ---
VITALS AND I&OS DONE AND CHARTED. HELPED HIM GET TO THE BATHROOM WITH HIS FWW. FRESH WATER GIVEN.
--- NOTE | 2017-12-27 20:20 | NUR ---
PATIENT GIVEN MEDICATIONS PER ORDER. ASSESSMENT COMPLETED. PATIENT RESTING IN BED WATCHING TV. PATIENT DENIES ANY NEEDS. CALL LIGHT WITHIN REACH. PAIN MEDICATION GIVEN SCHEDULED PAIN MEDICATION PER ORDER. PATIENT RATES PAIN 4/10 IN RIGHT HIP. ICE PACKS ON RIGHT HIP. HEEL PROTECTOR, WEDGE, AND SCDS IN PLACE.
--- NOTE | 2017-12-27 20:45 | NUR ---
PATIENT 2100 MEDICATIONS GIVEN PER ORDER. PATIENT CONTINUES TO RATE PAIN 4/10. PATIENT GIVEN PRN PAIN MEDICATION PER REQUEST. NO FURTHER NEEDS NOTED. CALL LIGHT WITHIN REACH.
--- NOTE | 2017-12-27 22:40 | NUR ---
ENTERED ROOM TO REASSES PATIENTS PAIN. IT WAS NOTED ON PULSE OX THAT PATIENTS OXYGEN SATURATION WAS BELOW NORMAL LIMITS. PATIENT PLACED ON 1L VIA NC. CALL LIGHT WITHIN REACH.
--- NOTE | 2017-12-27 23:24 | NUR ---
PATIENT OXYGEN SATURATION IS NOW WNL. PATIENT TITRATED TO .5L VIA NC. PATIENT APPEARS RESTING, EYE MASK IN PLACE. PATIENT RR 16. CALL LIGHT WITHIN REACH.
--- NOTE | 2017-12-28 00:24 | NUR ---
PATIENT APPEARS RESTING WITH EYE MASK IN PLACE. PATIENTS OXYGEN SATURATION 94 ON .5L VIA NC WHILE RESTING. CALL LIGHT WITHIN REACH.
--- NOTE | 2017-12-28 01:30 | NUR ---
PATIENT ASSISTED TO RESTROOM WITH STANDBY ASSIST AND FWW. PATIENT REQUESTED PRN PAIN MEDICATION WITH A PAIN LEVEL OF 8/10 AFTER AMBULATION. PAIN MEDICATION GIVEN PER PATIENT REQUEST. PATIENT 0200 MEDICATIONS GIVEN PER ORDER. PATIENT BACK IN BED WITH WEDGE, HEEL PROTECTORS, AND SCDS IN PLACE. ICE PACKS PLACED ON RIGHT HIP. PATIENT DENIES ANY OTHER NEEDS AT THIS TIME. CALL LIGHT WITHIN REACH.
--- NOTE | 2017-12-28 05:02 | NUR ---
PATIENT RESTED WELL THROUGHOUT THE NIGHT. PATIENT AMBULATES WITH A SBA AND FWW. PATIENTS IV IS SL. PATIENT GIVEN PRN PAIN MEDICATION THROUGH NIGHT FOR RIGHT HIP PAIN WHEN AMBULATING. PATIENTS OXYGEN SATURATIONS DROPPED BELOW 92 DURING THE NIGHT, .5L OF OXYGEN VIA NC WAS ADMINISTERED PER ORDER. PATIENT DRESSING ON RIGHT HIP IS C/D/I. ICE PACKS WERE PLACED. WEDGE, HEEL PROTECTORS, AND SCDS IN PLACE.
--- NOTE | 2017-12-28 06:10 | NUR ---
PATIENT ASSISTED TO RESTROOM BY SBA WITH FWW. PATIENT RELAXING IN RECLINER WATCHING TV. PRN PAIN MEDICATION GIVEN PER PATIENT REQUEST. PATIENT STATED PAIN 12/26. ICE PACK IN PLACE. PATIENT DENIES ANY OTHER NEEDS AT THIS TIME. CALL LIGHT WITHIN REACH. PATIENT GIVEN PRUNE JUICE AND COFFEE PER REQUEST.
--- NOTE | 2017-12-28 07:14 | OR ---
[facility] [address], [place] [address] Signed DATE OF OPERATION: 12/26/2017 SURGEON: Kale Scott MD PREOPERATIVE DIAGNOSIS: End-stage osteoarthritis, right hip. POSTOPERATIVE DIAGNOSIS: End-stage osteoarthritis, right hip. PROCEDURE: Right total hip arthroplasty. ANESTHESIA: Spinal with sedation. SPECIMENS AND COMPLICATIONS: There were no specimens or complications. BLOOD LOSS: About 250 mL. IMPLANTS: A 52 mm Sharon Sector cup with 220 mm screws, a neutral 36 mm liner. There was a size 7 high offset, a Sharon stem with a +5 36 head. WHAT WAS DONE: The patient was taken to the operating room and placed on the table in supine position. After anesthesia was induced and the patient placed in the left lateral decubitus position, he was prepped and draped in a routine sterile fashion. A straight lateral approach was made to the hip through the skin and subcutaneous tissue. Hemostasis was achieved with electrocautery and self-retaining retractors were placed. The deep fascia was incised in line with the skin incision. The self-retaining retractors were then deepened. The anterior 3rd of the gluteus was elevated off the anterior aspect of the greater trochanter and retracted medially. An anterior capsulectomy was then performed and the hip was dislocated. The femoral neck was osteotomized with an oscillating saw after aligning the cut with the cutting jig for the Sharon stem. The head and neck fragments were then removed. A self-retaining retractor was placed and the remaining portion of the labrum was excised with electrocautery. We then excavated the contents of the pulvinar. The femoral head measured about 54 mm. We then began sequential Electronically Signed By: KALE SCOTT MD 12/28/17 0714 PATIENT NAME: BEVERLEY VAZQUEZ OPERATIVE REPORT DATE OF : 64 REPORT #: [id number] PHYSICIAN: KALE SCOTT MD PCP: RAFAELA MAHAN REPORT IS CONFIDENTIAL AND NOT TO BE RELEASED WITHOUT AUTHORIZATION [facility] [address], [place] [address] Signed reaming with a 47 mm hemispherical reamer and reamed up to a size 51, at which point, we actually had a good interference fit. We therefore trialed the 51 trial. We were happy with the alignment, position, and fit, and therefore impacted the 52 mm Sharon Sector cup. Fixation was then augmented with two additional screws. A neutral 36 liner was then placed. The proximal femur was then rotated up into the wound and prepared with a box chisel via canal finder with the lateralizer and a series of reamers followed by broaches. We had a rather secure fit with a size 7 broach. We trialed the hip with a high offset +1.5 head and we were happy with alignment and position. However, the leg appeared to be just slightly short on an AP x-ray taken intraoperatively. We therefore dislocated the hip, removed the trials, and impacted the real size 7 high offset stem and then placed a +5 mm head on the Lockhart taper and relocated the hip. This gave us excellent alignment, position, coverage, and instability. The wound was copiously irrigated and closed in a standard fashion. A sterile dressing was applied. He was awakened and taken to recovery room where he arrived in stable condition. Counts were correct and antibiotic protocols were followed. MD URSULA Carroll/MODL /[id number] Copies: ~ Electronically Signed By: KALE SCOTT MD 12/28/17 0714 PATIENT NAME: BEVERLEY VAZQUEZ JULIO C OPERATIVE REPORT DATE OF : 64 REPORT #: [id number] PHYSICIAN: KALE SCOTT MD PCP: RAFAELA MAHAN REPORT IS CONFIDENTIAL AND NOT TO BE RELEASED WITHOUT AUTHORIZATION
--- NOTE | 2017-12-28 07:33 | NUR ---
BEDSIDE REPORT RECEIVED FROM NICK. PATIENT AWAKE SITTING IN THE CHAIR, A&O. NO APPARENT DISTRESS NOTED. PATIENT REPORTS MINIMAL PAIN ON THE RIGHT HIP. CALL LIGHT IN REACH. WILL CONTINUE TO MONITOR.
--- NOTE | 2017-12-28 08:56 | NUR ---
PATIENT UP WALKING IN THE HALLWAY WITH PHYSICAL THERAPIST. TOLERATED. PATIENT WAS MEDICATED PRIOR TO SUGERY.
--- NOTE | 2017-12-28 09:40 | NUR ---
PATIENT RESTING IN THE CHAIR. DENIES NAUSEA AND SOB AT THIS TIME. SHIFT ASSESSMENT DONE EARLIER AND CHARTED. WAS UP WALKING WITH PT. CALL LIGHT IN REACH. FAMILY IN ROOM AT THIS TIME.
--- NOTE | 2017-12-28 10:08 | NUR ---
PT IS SITTING UP IN CHAIR RESTING SAFELY WITH CALL LIGHT IN REACH. PT DID NOT NEED ANYTHING AT THE MOMENT
--- NOTE | 2017-12-28 10:50 | NUR ---
FRONT WHEEL WALKER DELIVERED TO PT FROM [facility].
--- NOTE | 2017-12-28 12:55 | NUR ---
DR BENTON WAS IN ROOM TO SEE AND EVALUATE PATIENT. PLAN TO DISCHARGE PATIENT HOME TODAY. PATIENT RESTING IN THE CHAIR. PATIENT WAS MEDICATED PRIOR TO PHYSICAL THERAPY. REPORTS MINIMAL PAIN. CALL LIGHT IN REACH.
--- NOTE | 2017-12-28 13:01 | NUR ---
PT WALKING IN LOU WITH , AND WALKED WITH HIM TO HIS RM. THIS WEEK HAS TURNED HIS WORLD UPSIDE DOWN, AND HE IS STILL REELING FROM THE EFFECTS. NEW ONSET DIABETES HAS BEEN DIAGNOSED, AND PT IS ON INFO OVERLOAD. WE HAD A VERY POSITIVE TIME OF DEBRIEFING, AND WORKED TO ENCOURAGE HIM. HE SEEMS VERY THANKFUL THAT HE NOW KNOWS WHAT IS THE PROBLEM, AND EXPRESSED HIS COMMITMENT TO GET HEALTHY. PT REQUESTED PRAYER, WILL FOLLOW NEEDED
[2017-12-28] MEDS ORDERED: DILAUDID4 MG PO (13:16)
[2017-12-28] MEDS ORDERED: OXYCODONE HCL10 MG PO (13:16)
[2017-12-28] MEDS ORDERED: ACETAMINOPHEN650 M1 PO (13:18)
[2017-12-28] MEDS ORDERED: XARELTO10 MG PO (13:19)
--- NOTE | 2017-12-28 13:46 | NUR ---
PT SITTING IN CHAIR-KNIFE IN ONE HAND, AND FORK IN THE OTHER WITH A BIG SMILE ON HIS FACE. HE WAS FINISHING UP HIS LUNCH, WAITING FOR DC. HE SAID HE FEELSCONFIDENT ABOUT WHAT NEE NEEDS TO DO ONCE HE IS DC'D. EXTENDED PT A BLESSING, WILL FOLLOW NEEDED
--- NOTE | 2017-12-28 14:13 | NUR ---
PATIENT WAS UP WALKING IN THE HALLWAY WITH PHYSICAL THERAPIST. NO APPARENT DISTRESS.
--- NOTE | 2017-12-28 17:20 | NUR ---
FAXED CHART NOTES TO [facility]. RECIEVED FAX CONFIRMATION. CHART INCLUDED FACESHEET, H AND P, PROG NOTE, PT EVAL AND NOTES SENT.
--- NOTE | 2017-12-31 18:28 | DS ---
[facility] [address] [place], [place] [address] Signed ADMISSION DATE: 12/26/2017 DISCHARGE DATE: 12/28/2017 FINAL DIAGNOSIS AT THE TIME OF DISCHARGE: Osteoarthritis right hip, end stage. ADDITIONAL DIAGNOSES: 1. Hypertension. 2. Chronic obstructive pulmonary disease. 3. Borderline diabetes. 4. Peptic ulcer disease. 5. Chronic low back pain. 6. Sleep apnea. PROCEDURES PERFORMED: Right total hip arthroplasty. HISTORY OF PRESENT ILLNESS: Beverley is a 57-year-old white male with progressively severe osteoarthritis in the right hip. He no longer got significant symptomatic relief from any conservative modalities and because of his declining ability to ambulate, elected to proceed with total hip arthroplasty. HOSPITAL COURSE: He was admitted on 12/26/2017, to the Day Surgery. He was taken to the operating room, where he underwent a right total hip arthroplasty using a Lafitte cup and a Ciales stem. Postoperatively, he has done extraordinarily well. He was seen in consultation by the hospitalist service who had managed his numerous medical comorbidities expertly. In terms of his hip, his dressing has been clean and dry. His laboratory studies have been stable. On the 2nd postoperative day, he has passed all of his physical therapy goals and is independent and ready to go home. I am going to discharge him home on total hip precautions. Activity as tolerated. Referral to physical therapy for the total hip program and we will have him continue to alternate OxyIR and Dilaudid 4 mg every 4 hours as needed for pain. We will also continue with his scheduled Tylenol and continue on Xarelto 10 mg one once a day for DVT prophylaxis. We will ask him to see us back in about a month. Electronically Signed By: KALE BENTON MD 12/31/17 1828 PATIENT NAME: BEVERLEY VAZQUEZ DISCHARGE SUMMARY DATE OF : 64 REPORT #: [id number] PHYSICIAN: KALE BENTON MD PCP: RAFAELA MAHAN REPORT IS CONFIDENTIAL AND NOT TO BE RELEASED WITHOUT AUTHORIZATION [facility] [address] [place], [place] [address] Signed Kale Benton MD WFB/MODL /[id number] Copies: ~ Electronically Signed By: KALE BENTON MD 12/31/17 1828 PATIENT NAME: BEVERLEY VAZQUEZ DISCHARGE SUMMARY DATE OF : 64 REPORT #: [id number] PHYSICIAN: KALE BENTON MD PCP: NEGRITO,RAFAELA R RECORDER OF DEEDS REPORT IS CONFIDENTIAL AND NOT TO BE RELEASED WITHOUT AUTHORIZATION
== END 2017-12-28 14:35 | disposition home or self-care (01) | DRG 470 ==
LOC: DSVR 12-26 08:50 → MS 12-26 10:45
PROVIDERS: ADMIT Orthopaedic Surgery
PROC: 0SR90JZ Replacement of Right Hip Joint with Synthetic Substitute, Open Approach (ICD-10-PCS; principal; 2017-12-26 10:45)
DX: M16.11 Unilateral primary osteoarthritis, right hip (principal); I10 Essential (primary) hypertension; J44.9 Chronic obstructive pulmonary disease, unspecified; R73.03 Prediabetes; K27.9 Peptic ulcer, site unspecified, unspecified as acute or chronic, without hemorrhage or perforation; M54.5 Low back pain; G47.30 Sleep apnea, unspecified
CPT/HCPCS: 01214; 36415; 72170; 73501; 80048; 85025; 94762; 97110; 97116; 97161; C1776; G8978; G8979; J1170; J1885; J2250; J2274; J2300; J2370; J2704; J3010; J3370; J7050; J7120

== ENCOUNTER 2017-12-30 11:31 | Inpatient (IN) | payer OTHER ==
[~2017-12-30] VITALS: Ht 175.3 cm; Wt 111.0 kg
--- OUTSIDE RECORDS SUMMARY | ~2017-12-30 | XMS | Clinical Summary ---
Demographics + + + | Address | [address] | | | [place] [address] | + + + | Home Phone | | + + + | Preferred Language | Unknown | + + + | Marital Status | Single | + + + | Evangelical Affiliation | [id number] | + + + | Race | Unknown | + + + | Ethnic Group | Unknown | + + + Author + + + | Author | [facility] | + + + | Organization | [facility] | + + + | Address | Unknown | + + + | Phone | Unavailable | + + + Support + + + + + | Name | Relationship | Address | Phone | + + + + + | Marianna Ly | ECON | [address] | | | | [address], [place] | | | | | [address] | | + + + + + Care Team Providers + +------+ + | Care Rf Microwave Engineer Name | Role | Phone | + +------+ + | [place]ir [place] | PP | | + +------+ + Allergies + + + + + + | Active Allergy | Reactions | Severity | Noted | Comments | | | | | Date | | + + + + + + | Lisinopril | Other (See Comments) | Medium | 02/03/20 | Dry hacking cough | | | | | 16 | | + + + + + + | Trazodone | Agitation | Low | 01/22/20 | | | | | | 16 | | + + + + + + Current Medications + + +--------+---------+------+------+-------+ | Prescription | Sig. | Disp. | Refills | Star | End | Statu | | | | | | t | Date | s | | | | | | Date | | | + + +--------+---------+------+------+-------+ | thiamine (VITAMIN | Take 1 tablet by | 30 | 0 | 03/19 | | Activ | | B-1) 100 MG tablet | mouth daily. | tablet | | 05/07 | | e | | | | | | 15 | | | + + +--------+---------+------+------+-------+ | pantoprazole | Take 40 mg by mouth | | | | | Activ | | (PROTONIX) 40 MG | daily. | | | | | e | | tablet | | | | | | | + + +--------+---------+------+------+-------+ | ferrous sulfate, | Take 65 mg of iron | | | | | Activ | | 65 FE, 324 (65 FE) | by mouth daily with | | | | | e | | MG EC tablet | breakfast. With 250 | | | | | | | | mg Vit C | | | | | | + + +--------+---------+------+------+-------+ | ascorbic acid | Take 250 mg by mouth | | | | | Activ | | (VITAMIN C) 250 MG | daily. | | | | | e | | tablet | | | | | | | + + +--------+---------+------+------+-------+ | cloNIDine | Take 0.3 mg by mouth | | | | | Activ | | (CATAPRES) 0.3 MG | nightly. | | | | | e | | tablet | | | | | | | + + +--------+---------+------+------+-------+ | tamsulosin | Take 0.4 mg by mouth | | | | | Activ | | (FLOMAX) 0.4 MG | After dinner. | | | | | e | | capsule | | | | | | | + + +--------+---------+------+------+-------+ | nitroGLYCERIN | Place 1 tablet under | 90 | 0 | 05/0 | | Activ | | (NITROSTAT) 0.4 MG | the tongue every 5 | tablet | | 7/20 | | e | | SL tablet | (five) minutes as | | | 16 | | | | | needed for Chest | | | | | | | | pain. | | | | | | + + +--------+---------+------+------+-------+ | Multiple | Take by mouth | | | | | Activ | | Vitamins-Minerals | daily. | | | | | e | | (RA CENTRAL-ALTON PO) | | | | | | | + + +--------+---------+------+------+-------+ | | Inhale 1 puff into | | | | | Activ | | fluticasone-salmeter | the lungs 2 (two) | | | | | e | | ol (ADVAIR) 500-50 | times daily. | | | | | | | MCG/DOSE diskus | | | | | | | | inhaler | | | | | | | + + +--------+---------+------+------+-------+ | gabapentin | Take 300 mg by mouth | | | | | Activ | | (NEURONTIN) 600 MG | 3 (three) times | | | | | e | | tablet | daily. | | | | | | + + +--------+---------+------+------+-------+ | ibuprofen (MOTRIN) | Take 600 mg by mouth | | | | | Activ | | 600 MG tablet | every 6 (six) hours | | | | | e | | | as needed for Pain. | | | | | | | | Trying to use | | | | | | | | sparingly | | | | | | + + +--------+---------+------+------+-------+ | montelukast | Take 10 mg by mouth | | | | | Activ | | (SINGULAIR) 10 MG | nightly. | | | | | e | | tablet | | | | | | | + + +--------+---------+------+------+-------+ | | Take 12.5 mg by | | | | | Activ | | hydrochlorothiazide | mouth daily. | | | | | e | | (HYDRODIURIL) 12.5 | | | | | | | | MG tablet | | | | | | | + + +--------+---------+------+------+-------+ | amLODIPine | Take 5 mg by mouth | | | | | Activ | | (NORVASC) 5 MG | daily. | | | | | e | | tablet | | | | | | | + + +--------+---------+------+------+-------+ | amitriptyline | Take 100 mg by mouth | | | | | Activ | | (ELAVIL) 100 MG | nightly. | | | | | e | | tablet | | | | | | | + + +--------+---------+------+------+-------+ | albuterol | Inhale 2 puffs into | | | | | Activ | | (PROVENTIL | the lungs every 4 | | | | | e | | HFA;VENTOLIN HFA) | (four) hours as | | | | | | | 108 (90 BASE) | needed for Wheezing. | | | | | | | MCG/ACT inhaler | | | | | | | + + +--------+---------+------+------+-------+ | umeclidinium | Inhale 1 puff into | | | | | Activ | | bromide (INCRUSE | the lungs daily. | | | | | e | | ELLIPTA) 62.5 | | | | | | | | MCG/INH inhaler | | | | | | | + + +--------+---------+------+------+-------+ | diclofenac | Take 50 mg by mouth | | | | | Activ | | (CATAFLAM) 50 MG | 2 (two) times daily. | | | | | e | | tablet | | | | | | | + + +--------+---------+------+------+-------+ | | Take 3 mLs by | | | | | Activ | | ipratropium-albutero | nebulization as | | | | | e | | l (DUO-NEB) 0.5-2.5 | needed. | | | | | | | mg/3mL | | | | | | | + + +--------+---------+------+------+-------+ | atorvastatin | Take 1 tablet by | 30 | 11 | 01/2 | | Activ | | (LIPITOR) 40 MG | mouth nightly. | tablet | | 9/20 | | e | | tablet | | | | 18 | | | + + +--------+---------+------+------+-------+ | metoprolol | Take 1 tablet by | 60 | 11 | 01/2 | | Activ | | (LOPRESSOR) 25 MG | mouth 2 (two) times | tablet | | 9/20 | | e | | tablet | daily. | | | 18 | | | + + +--------+---------+------+------+-------+ | oxyCODONE | Take 5 mg by mouth | | | | | Activ | | (ROXICODONE) 5 MG | every 4 (four) hours | | | | | e | | immediate release | as needed for Pain. | | | | | | | tablet | | | | | | | + + +--------+---------+------+------+-------+ | cyanocobalamin | Take 1,000 mcg by | | | | | Activ | | (VITAMIN B-12) 1000 | mouth daily. | | | | | e | | MCG tablet | | | | | | | + + +--------+---------+------+------+-------+ Active Problems + + + | Problem | Noted Date | + + + | Mild persistent asthma without complication | 08/03/2017 | + + + | Obstructive sleep apnea syndrome | 02/05/2017 | + + + | H/O syncope | 02/03/2016 | + + + + + | Last Assessment & Plan: Syncope. 56yo WM, with Hx | | syncope. Our workup to date is benign, including a 32 day | | cardiac event monitor. He remains moderately active, no | | recurrent syncope, although he does have episodes of | | lightheadedness dizziness, but not to a point where he is near | | syncopal. He denies any chest discomfort or shortness of breath. | | Tolerating medications. No changes in therapy. Will follow | | clinically.Hx Pacemaker/ICD: noLast Cath: naLast Echo, 02/08/2016 | | ([facility]): LVEF 65-70%, trace MR, trace TR. Ascending Aorta | | 41mm, Aortic arch 37mm.Last Stress Test, 01/23/2016: Lexiscan, no | | ischemia detected, LVEF 63%.32-Day Cardiac Event Monitor, | | 02/03/2016: sinus rhythm, 51-133, averaging 80bpm, rare ectopy, no | | AVB/pauses, symptoms of "chest pain, SOB, dizziness, fluttering" | | all associated with NSR.ECG, 02/03/2016: NSR, 63bpm. | + + + + + | COPD (chronic obstructive pulmonary disease) | 02/03/2016 | + + + + + | Last Assessment & Plan: COPD, ex-smoker (04/2015), managed by | | PCP. | + + + + + | Precordial pain | 01/22/2016 | + + + | Essential hypertension | 01/22/2016 | + + + + + | Last Assessment & Plan: Hypertension, controlled, continue | | current meds at current doses (amlodipine, clonidine, HCT, | | metoprolol). | + + + + + | HLD (hyperlipidemia) | 01/22/2016 | + + + + + | Last Assessment & Plan: Hyperlipidemia, continue current meds | | at current dose (atorvastatin). | + + + + + | Alcohol withdrawal | 04/08/2015 | + + + | Acute respiratory failure (HCC) | 04/08/2015 | + + + | Personal history of tobacco use, presenting hazards to health | 04/08/2015 | + + + | Obstructive sleep apnea (adult) (pediatric) | 04/08/2015 | + + + | Morbid obesity (HCC) | 04/08/2015 | + + + | Accelerated hypertension | 04/08/2015 | + + + Encounters +--------+ + + + + | Date | Type | Specialty | Care Team | Description | +--------+ + + + + | 11/27/ | Office | | MattiedoloresDomonique | Essential | | 2018 | Visit | | NASREEN Chen | hypertension with | | | | | | goal blood pressure | | | | | | less than 130/80 | | | | | | (Primary Dx); | | | | | | Hyperlipidemia, | [...] | | | | | anemia | +--------+ + + + + | 11/27/ | Documentati | | Issac Blackburn MA | | | 2018 | on Only | | | | +--------+ + + + + | 11/22/ | Documentati | | Adelina Chairez, | Jose Raul Ku | | 2018 | on Only | | HEALTHCARE SPECIALIST | [place]) | +--------+ + + + + | 11/01/ | Documentati | | Adelina Chairez, | Other ([facility] | | 2017 | on Only | | HEALTHCARE SPECIALIST | Clinic, Pulmonary | | | | | | Function Test) | +--------+ + + + + | 10/30/ | Ancillary | | Domonique Arenas | H/O syncope; | | 2017 | Procedure | | NASREEN Chen | Essential | | | | | | hypertension with | | | | | | goal blood pressure | | | | | | less than 130/80; | | | | | | Hyperlipidemia, | | | | | | unspecified | | | | | | hyperlipidemia type; | | | | | | Chronic obstructive | | | | | | pulmonary disease, | | | | | | unspecified COPD | | | | | | type ([facility]); | | | | | | Thoracoabdominal | | | | | | aortic aneurysm, | | | | | | without rupture | | | | | | (HCC); Obstructive | | | | | | sleep apnea syndrome | +--------+ + + + + | 10/19/ | Documentati | | Kavitha Robledo, | Other ([facility] | | 2017 | on Only | | MA | Labs) | +--------+ + + + + | 10/18/ | Documentati | | Anish, | Labs Only | | 2018 | on Only | | PORSHA Monte | | +--------+ + + + + | 10/16/ | Office | | Domonique Arenas | H/O syncope (Primary | | 2018 | Visit | | NASREEN Chen | Dx); Essential | | | | | | hypertension with | | | | | | goal blood pressure | | | | | | less than 130/80; | | | | | | Hyperlipidemia, | | | | | | unspecified | | | | | | hyperlipidemia type; | | | | | | Chronic obstructive | | | | | | pulmonary disease, | | | | | | unspecified COPD | | | | | | type (HCC); | | | | | | Thoracoabdominal | | | | | | aortic aneurysm, | | | | | | without rupture | | | | | | (HCC); Obstructive | | | | | | sleep apnea | | | | | | syndrome; Former | | | | | | heavy tobacco | | | | | | smoker; History of | | | | | | anemia; Murmur, | | | | | | cardiac | +--------+ + + + + | 10/09/ | Telephone | | Lisandra Hurtado, | | | 2017 | | | HEALTHCARE SPECIALIST | | +--------+ + + + + from Last 3 Months Immunizations + + + + | Name | Dates Previously Given | Next Due | + + + + | Pneumococcal | 04/09/2015 | | | Polysaccharide | | | | 23-valent | | | + + + + Family History + + +------+ + | Medical History | Relation | Name | Comments | + + +------+ + | Sickle cell anemia | Father | | | + + +------+ + | Alcohol abuse | Mother | | | + + +------+ + | Diabetes type I | Mother | | | + + +------+ + | Diabetes type II | Mother | | | + + +------+ + + +------+ + + | Relation | Name | Status | Comments | + +------+ + + | Father | | | sickle cell anemia | | | | (Age | | | | | 70) | | + +------+ + + | Mother | | Alive | | + +------+ + + Social History + +-------+ +--------+ [...] 15 | + +---+---+ + + + | Tobacco Cessation: Ready to Quit: No | + + + + +---------+ + | Alcohol [...] on file | | + + + Last Filed Vital Signs + + + + | Vital Sign | Reading | Time Taken | + + + + | Blood Pressure | 112/60 | 11/27/2017 10:53 AM PDT | + + + + | Pulse | 67 | 11/27/2017 10:53 AM PDT | + + + + | Temperature | 36.4 C (97.6 F) | 08/03/2017 9:51 AM PST | + + + + | Respiratory [...] AM PDT | + + + + Plan of Treatment +--------+---------+ + + + | Date | Type | Specialty | Care Team | Description | +--------+---------+ + + + | 01/31/ | Office | | Florian Lujan MD | | | 2018 | Visit | | [address] | | | | | | [place] [address] | | | | | | [phone] | | | | | | | | +--------+---------+ + + + + + + + + | Health Maintenance | Due Date | Last Done | Comments | + + + + + | Vaccine: | | | | | Dtap/Tdap/Td (1 - | 1 | | | | Tdap) | | | | + + + + + | Colon Cancer | | | | | Screening | 2 | | | | (Colonoscopy) | | | | + + + + + | Vaccine: Influenza | | 07/14/2015, 07/08/2013, | | | (Season Ended) | 8 | 10/10/2012 | | + + + + + | Vaccine: | Completed | 09/08/2015, 04/09/2015 | | | Pneumococcal 19-64 | | | | | (PPSV23 only) Medium | | | | | Risk | | | | + + + + + Procedures + +--------+ + + + | Procedure Name | Priori | Date/Time | Associated Diagnosis | Comments | | | ty | | | | + +--------+ + + + | ECHO OUTSIDE | Routin | 10/30/2017 | H/O syncope | Results for this | | INTERPRETATION | e | 3:43 PM | Essential | procedure are in the | | STANDARD | | PST | hypertension with | results section. | | | | | goal blood pressure | | | | | | less than 130/80 | | | | | | Hyperlipidemia, | | | | | | unspecified | | | | | | hyperlipidemia type | | | | | | Chronic obstructive | | | | | | pulmonary disease, | | | | | | unspecified COPD | | | | | | type (HCC) | | | | | | Thoracoabdominal | | | | | | aortic aneurysm, | | | | | | without rupture | | | | | | (HCC) Obstructive | | | | | | sleep apnea syndrome | | + +--------+ + + + from Last 3 Months Results ECHO outside interpretation standard (10/30/2017 3:43 PM) + + + | Specimen | Performing Laboratory | + + + | | [id number] [place] [address] | + + + + + | Impressions | + + | 1. Overall left ventricular systolic function is normal with, an EF between 60 - 65 %. | | 2. The right ventricle is normal in size and function. 3. The aortic root, ascending | | aorta and aortic arch are normal. 4. No significant valvular abnormalities are noted. | + + + + | Narrative | + + | Patient Name: Beverley Win Date of : 1960 | | Performing Physician: JORGE NOVAK MD | | INDICATIONS | | F/U thoracic/abdominal aneurysm CONCLUSIONS 1. Overall | | left ventricular systolic function is normal with, an EF between 60 - 65 %. 2. The | | right ventricle is normal in size and function. 3. The aortic root, ascending aorta and | | aortic arch are normal. 4. No significant valvular abnormalities are noted. | | FINDINGS -------- ECG rhythm: Sinus rhythm. ECG rhythm: Resting bradycardia | | (HR<60bpm). Study: A 2-dimensional transthoracic echocardiogram with m-mode, spectral | | and color flow Doppler was perfomed. Study: This was a technically adequate study. | | Left Ventricle: Overall left ventricular systolic function is normal with, an EF between | | 60 - 65 %. Left Ventricle: The left ventricle cavity size is normal. Left | | Ventricle: Left ventricular wall thickness is normal. Left Ventricle: No regional wall | | motion abnormalities. Left Ventricle: The diastolic filling pattern is normal for the | | age of the patient. Right Ventricle: The right ventricle is normal in size and | | function. Left Atrium: The left atrium is normal in size. Right Atrium: The right | | atrium is normal in size. Aortic Valve: Aortic valve is trileaflet and is mildly | | thickened. Aortic Valve: There is no evidence of aortic regurgitation. Aortic Valve: | | There is no evidence of aortic stenosis. Mitral Valve: The mitral valve is normal. | | Mitral Valve: There is trace mitral regurgitation. Mitral Valve: No evidence of MVP or | | mitral stenosis. Tricuspid Valve: The tricuspid valve appears structurally normal. | | Tricuspid Valve: Pulmonary artery systolic pressure could not be assessed due to the | | absence of adequate TR jet. Pulmonic Valve: The pulmonic valve was not well visualized. | | Pericardium: There is no pericardial effusion. IVC/Hepatic Veins: The IVC is small | | (<1.5cm) and collapses with sniff, consistent with central venous pressures of 0-5mmHg. | | Aorta: The aortic root, ascending aorta and aortic arch are normal. Mass: No mass | | visualized Thrombus: No clot visualized Thrombus: No vegetation visualized. Septum: | | No ASD observed. Septum: No VSD observed. MEASUREMENTS Ao asc: | | 3.65 cm Ao sinus: 3.[address] junct: 2.91 cm IVC: 1.27 cm | | EDV(Teich): 105.93 ml IVSd: 1.06 cm LVIDd: 4.76 cm LVPWd: 0.90 cm | | LVOT Diam: 2.31 cm %FS: 22.34 % EF(Teich): 44.99 % ESV(Teich): 58.27 | | ml LVIDs: 3.70 cm SV(Teich): 47.66 ml RVIDd: 3.07 cm Ao root: 32.72 | | mm LVEF MOD A2C: 56.41 % SV MOD A2C: 46.46 ml LVEF MOD A4C: 55.05 % SV | | MOD A4C: 55.55 ml EF Biplane: 55.87 % LVEDV MOD BP: 92.29 ml LVESV MOD | | BP: 40.72 ml LVEDV MOD A2C: 82.36 ml LVLd A2C: 9.15 cm LVEDV MOD A4C: | | 100.89 ml LVLd A4C: 9.46 cm LVESV MOD A2C: 35.90 ml LVLs A2C: 6.85 cm | | LVESV MOD A4C: 45.34 ml LVLs A4C: 7.06 cm LAESV(A-L): 54.75 ml LAESV | | Index (A-L): 24.66 ml/m2 LAAs A2C: 15.85 cm2 LAESV A-L A2C: 42.05 ml LALs | | A2C: 5.07 cm LAAs A4C: 20.65 cm2 LAESV A-L A4C: 68.39 ml LALs A4C: | | 5.29 cm RAAs: 16.87 cm2 RAESV A-L: 44.78 ml RAESV MOD: 45.69 ml | | RALs: 5.39 cm TAPSE: 2.19 cm AV maxP.05 mmHg AV meanP.73 mmHg | | AV Vmax: 1.32 m/s AV Vmean: 0.90 m/s AV VTI: 29.89 cm LAKEISHA Vmax: | | 3.41 cm2 LAKEISHA (VTI): 3.01 cm2 AVAI Vmax: 0.00 cm2/m2 AVAI (VTI): 0.00 | | cm2/m2 LVOT maxP.63 mmHg LVOT meanP.94 mmHg LVSI Dopp: 40.60 | | ml/m2 LVSV Dopp: 90.15 ml LVOT Vmax: 1.07 m/s LVOT Vmean: 0.63 m/s LVOT | | VTI: 21.41 cm MV A Porter: 0.37 m/s MV DecT: 232.01 ms MV E Porter: 0.58 | | m/s MV E/A Ratio: 1.53 Septal e': 0.08 m/s Septal E/e': 7.16 Lateral | | e': 0.07 m/s Lateral E/e': 7.35 Airset Caster: Authenticated | | by: JORGE NOVAK MD Report Date/Time: 10-30-2017 17:52:14 | + + + + | Procedure Note | + + | Jayce, Rad Results In - 10/30/2017 6:00 PM PST Patient Name: Abena Win of | | : 1960ccession: [id number] Physician: JORGE NOVAK MD | | INDICATIONS F/U | | thoracic/abdominal aneurysmCONCLUSIONS 1. Overall left ventricular systolic | | function is normal with, an EF between 60 - 65 %.2. The right ventricle is normal in | | size and function.3. The aortic root, ascending aorta and aortic arch are normal. 4. No | | significant valvular abnormalities are noted.FINDINGS--------ECG rhythm: Sinus rhythm. | | ECG rhythm: Resting bradycardia (HR<60bpm).Study: A 2-dimensional transthoracic | | echocardiogram with m-mode, spectral and color flow Doppler was perfomed. Study: This | | was a technically adequate study.Left Ventricle: Overall left ventricular systolic | | function is normal with, an EF between 60 - 65 %. Left Ventricle: The left ventricle | | cavity size is normal. Left Ventricle: Left ventricular wall thickness is normal. Left | | Ventricle: No regional wall motion abnormalities. Left Ventricle: The diastolic filling | | pattern is normal for the age of the patient.Right Ventricle: The right ventricle is | | normal in size and function.Left Atrium: The left atrium is normal in size.Right Atrium: | | The right atrium is normal in size. Aortic Valve: Aortic valve is trileaflet and is | | mildly thickened. Aortic Valve: There is no evidence of aortic regurgitation. Aortic | | Valve: There is no evidence of aortic stenosis.Mitral Valve: The mitral valve is normal. | | Mitral Valve: There is trace mitral regurgitation. Mitral Valve: No evidence of MVP or | | mitral stenosis.Tricuspid Valve: The tricuspid valve appears structurally normal. | | Tricuspid Valve: Pulmonary artery systolic pressure could not be assessed due to the | | absence of adequate TR jet.Pulmonic Valve: The pulmonic valve was not well | | visualized.Pericardium: There is no pericardial effusion.IVC/Hepatic Veins: The IVC is | | small (<1.5cm) and collapses with sniff, consistent with central venous pressures of | | 0-5mmHg.Aorta: The aortic root, ascending aorta and aortic arch are normal.Mass: No mass | | visualizedThrombus: No clot visualized Thrombus: No vegetation visualized.Septum: No | | ASD observed. Septum: No VSD observed.MEASUREMENTS Ao asc: 3.65 cmAo | | sinus: 3.[address] junct: 2.91 cmIVC: 1.27 cmEDV(Teich): 105.93 mlIVSd: 1.06 | | cmLVIDd: 4.76 cmLVPWd: 0.90 cmLVOT Diam: 2.31 cm%FS: 22.34 %EF(Teich): 44.99 | | %ESV(Teich): 58.27 mlLVIDs: 3.70 cmSV(Teich): 47.66 mlRVIDd: 3.07 cmAo root: | | 32.72 mmLVEF MOD A2C: 56.41 %SV MOD A2C: 46.46 mlLVEF MOD A4C: 55.05 %SV MOD A4C: | | 55.55 mlEF Biplane: 55.87 %LVEDV MOD BP: 92.29 mlLVESV MOD BP: 40.72 mlLVEDV MOD | | A2C: 82.36 mlLVLd A2C: 9.15 cmLVEDV MOD A4C: 100.89 mlLVLd A4C: 9.46 cmLVESV | | MOD A2C: 35.90 mlLVLs A2C: 6.85 cmLVESV MOD A4C: 45.34 mlLVLs A4C: 7.06 | | cmLAESV(A-L): 54.75 mlLAESV Index (A-L): 24.66 ml/m2LAAs A2C: 15.85 [id number] A-L | | A2C: 42.05 mlLALs A2C: 5.07 cmLAAs A4C: 20.65 [id number] A-L A4C: 68.39 mlLALs | | A4C: 5.29 cmRAAs: 16.87 [id number] A-L: 44.78 mlRAESV MOD: 45.69 mlRALs: 5.39 | | cmTAPSE: 2.19 cmAV maxP.05 mmHgAV meanP.73 mmHgAV Vmax: 1.32 m/Mariam | | Vmean: 0.90 m/Mariam VTI: 29.89 cmAVA Vmax: 3.41 cm2AVA (VTI): 3.01 [id number] Vmax: | | 0.00 cm2/m2AVAI (VTI): 0.00 cm2/m2LVOT maxP.63 mmHgLVOT meanP.94 mmHgLVSI | | Dopp: 40.60 ml/m2LVSV Dopp: 90.15 mlLVOT Vmax: 1.07 m/sLVOT Vmean: 0.63 m/sLVOT | | VTI: 21.41 cmMV A Porter: 0.37 m/sMV DecT: 232.01 msMV E Porter: 0.58 m/sMV E/A | | Ratio: 1.53 Septal e': 0.08 m/sSeptal E/e': 7.16 Lateral e': 0.07 m/sLateral | | E/e': 7.35 Airset Caster: Authenticated by: Jean Marie LEMUS Date/Time: 10-30-2017 | | 17:52:14IMPRESSION:1. Overall left ventricular systolic function is normal with, an EF | | between 60 - 65 %.2. The right ventricle is normal in size and function.3. The aortic | | root, ascending aorta and aortic arch are normal. 4. No significant valvular | | abnormalities are noted. | |Septum: No VSD observed. | | | |MEASUREMENTS | | | |Ao asc: 3.65 cm | |Ao sinus: 3.46 cm | |Ao st junct: 2.91 cm | |IVC: 1.27 cm | |EDV(Teich): 105.93 ml | |IVSd: 1.06 cm | |LVIDd: 4.76 cm | |LVPWd: 0.90 cm | |LVOT Diam: 2.31 cm | |%FS: 22.34 % | |EF(Teich): 44.99 % | |ESV(Teich): 58.27 ml | |LVIDs: 3.70 cm | |SV(Teich): 47.66 ml | |RVIDd: 3.07 cm | |Ao root: 32.72 mm | |LVEF MOD A2C: 56.41 % | |SV MOD A2C: 46.46 ml | |LVEF MOD A4C: 55.05 % | |SV MOD A4C: 55.55 ml | |EF Biplane: 55.87 % | |LVEDV MOD BP: 92.29 ml | |LVESV MOD BP: 40.72 ml | |LVEDV MOD A2C: 82.36 ml | |LVLd A2C: 9.15 cm | |LVEDV MOD A4C: 100.89 ml | |LVLd A4C: 9.46 cm | |LVESV MOD A2C: 35.90 ml | |LVLs A2C: 6.85 cm | |LVESV MOD A4C: 45.34 ml | |LVLs A4C: 7.06 cm | |LAESV(A-L): 54.75 ml | |LAESV Index (A-L): 24.66 ml/m2 | |LAAs A2C: 15.85 cm2 | |LAESV A-L A2C: 42.05 ml | |LALs A2C: 5.07 cm | |LAAs A4C: 20.65 cm2 | |LAESV A-L A4C: 68.39 ml | |LALs A4C: 5.29 cm | |RAAs: 16.87 cm2 | |RAESV A-L: 44.78 ml | |RAESV MOD: 45.69 ml | |RALs: 5.39 cm | |TAPSE: 2.19 cm | |AV maxP.05 mmHg | |AV meanP.73 mmHg | |AV Vmax: 1.32 m/s | |AV Vmean: 0.90 m/s | |AV VTI: 29.89 cm | |LAKEISHA Vmax: 3.41 cm2 | |LAKEISHA (VTI): 3.01 cm2 | |AVAI Vmax: 0.00 cm2/m2 | |AVAI (VTI): 0.00 cm2/m2 | |LVOT maxP.63 mmHg | |LVOT meanP.94 mmHg | |LVSI Dopp: 40.60 ml/m2 | |LVSV Dopp: 90.15 ml | |LVOT Vmax: 1.07 m/s | |LVOT Vmean: 0.63 m/s | |LVOT VTI: 21.41 cm | |MV A Porter: 0.37 m/s | |MV DecT: 232.01 ms | |MV E Porter: 0.58 m/s | |MV E/A Ratio: 1.53 | |Septal e': 0.08 m/s | |Septal E/e': 7.16 | |Lateral e': 0.07 m/s | |Lateral E/e': 7.35 | | | |Airset Caster: | |Authenticated by: JORGE NOVAK MD | |Report Date/Time: 10-30-2017 17:52:14 | | | |IMPRESSION: | |1. Overall left ventricular systolic function is normal with, an EF between 60 - 65 %. | |2. The right ventricle is normal in size and function. | |3. The aortic root, ascending aorta and aortic arch are normal. 4. No significant valvular abnormalities are noted. | + + Iron panel (10/17/2017 7:42 AM) + +-------+ + | Component | Value | Ref Range | + +-------+ + | IRON | 82.66 | 37 - 160 | + +-------+ + | IRON % SAT | 24.1 | 20 - 55 | + +-------+ + | TIBC | 343 | 245 - 400 | + +-------+ + + + + | Specimen | Performing Laboratory | + + + | Blood | [facility] [address] | | | [id number] | + + + Transferrin (10/17/2017 7:42 AM) + +--------+ + | Component | Value | Ref Range | + +--------+ + | TRANSFERRIN | 245.11 | 180 - 329 | + +--------+ + + + + | Specimen | Performing Laboratory | + + + | Blood | [facility] [address] | | | [id number] | + + + Ferritin (10/17/2017 7:42 AM) + +-------+ + | Component | Value | Ref Range | + +-------+ + | FERRITIN | 162.8 | 30 - 400 ng/mL | + +-------+ + + + + | Specimen | Performing Laboratory | + + + | Blood | [facility] [address] [place], [facility] [address] [place], [place] | | | [address] | + + + Lipid panel (10/17/2017 7:42 AM) + +-------+ + | Component | Value | Ref Range | + +-------+ + | CHOLESTEROL | 131 | 200 mg/dL | + +-------+ + | TRIGLYCERIDES | 116 | 30 - 150 mg/dL | + +-------+ + | HDL CHOL | 40.3 | 40 mg/dl | + +-------+ + | LDL CALC | 68 | 100 mg/dL | + +-------+ + | LDl/HDL Ratio | | | + +-------+ + | CHOL/HDL | 3.3 | 4.97 | + +-------+ + | VLDL CHOL | 23 | 4 - 40 mg/dL | + +-------+ + | NON HDL CHOL | 91 | 130 | + +-------+ + + + + | Specimen | Performing Laboratory | + + + | Blood | [facility] [address] [place] [address] [facility] [address] [place], [place] | | | [address] | + + + Comprehensive metabolic panel (10/17/2017 7:42 AM) + +-------+ + | Component | Value | Ref Range | + +-------+ + | GLUCOSE | 99 | 70 - 100 mg/dL | + +-------+ + | BUN | 18 | 6 - 23 mg/dL | + +-------+ + | CREATININE | 0.88 | 0.70 - 1.33 mg/dL | + +-------+ + | BUN/CREAT | 20.5 | 6.0 - 28.6 | + +-------+ + | CALCIUM | 9.7 | 8.4 - 10.2 mg/dL | + +-------+ + | TOTAL PROTEIN | 6.6 | 6.0 - 8.0 g/dL | + +-------+ + | Albumin | 4.4 | 3.5 - 5.0 | + +-------+ + | GLOBULIN | 2.2 | 1.8 - 3.5 | + +-------+ + | A/G | 2.0 | 1.0 - 2.4 | + +-------+ + | TBIL | 0.5 | 0.0 - 1.2 mg/dL | + +-------+ + | ALK PHOS | 59 | 32 - 120 | + +-------+ + | ALT | 25 | 7 - 52 U/L | + +-------+ + | AST | 19 | 13 - 39 U/L | + +-------+ + | SODIUM | 142 | 132 - 143 mmol/L | + +-------+ + | POTASSIUM | 4.0 | 3.6 - 5.1 mmol/L | + +-------+ + | CHLORIDE | 103 | 95 - 112 mmol/L | + +-------+ + | CO2 | 28 | 19 - 31 mmol/L | + +-------+ + | ANION GAP AGAP | 15.0 | 7 - 21 mmol/L | + +-------+ + | EGFR | 90 | 60 mg/dL | + +-------+ + + + + | Specimen | Performing Laboratory | + + + | Blood | [facility] [address] [place] | | | [address] | + + + CBC W/Auto Diff (Reflex to Manual) (10/17/2017) + +-------+ + | Component | Value | Ref Range | + +-------+ + | WBC | 9.0 | 4.5 - 11.0 10^3/mL | + +-------+ + | RBC | 4.79 | 4.3 - 5.7 10^6/ L | + +-------+ + | HGB | 14.7 | 13.5 - 18.0 g/dL | + +-------+ + | HCT | 43.4 | 41 - 50 % | + +-------+ + | MCV | 90.6 | 81 - 99 fL | + +-------+ + | MCH | 31 | 27 - 33 pg | + +-------+ + | MCHC | 34 | 30 - 36 g/dL | + +-------+ + | PLT | 286 | 140 - 440 K/ L | + +-------+ + | RDW SD | 13.5 | 10.5 - 15.0 % | + +-------+ + | MPV | | fL | + +-------+ + | DIFF TYPE | | | + +-------+ + | NEUTROPHILS | 64.5 | 39 - 80 % | + +-------+ + | LYMPHOCYTES | 26.4 | 24 - 44 % | + +-------+ + | MONOCYTES | 7.2 | 0 - 12 % | + +-------+ + | EOSINOPHILS | 0.9 | 0 - 6 % | + +-------+ + | BASOPHILS | 1.0 | 0 - 2 % | + +-------+ + | NEUTROPHILS ABS | | / L | + +-------+ + | LYMPHOCYTES ABS | | / L | + +-------+ + | MONOCYTES ABS | | / L | + +-------+ + | EOSINOPHILS ABS | | / L | + +-------+ + | BASOPHILS ABS | | / L | + +-------+ + + + + | Specimen | Performing Laboratory | + + + | Blood | [facility] [address] [place] [address], [place] | | | [address] | + + + EKG STANDARD 12 LEAD (10/16/2017 12:27 PM) + + + + | Component | Value | Ref Range | + + + + | Ventricular Rate | 63 | BPM | + + + + | Atrial Rate | 63 | BPM | + + + + | P-R Interval | 146 | ms | + + + + | QRS Duration | 96 | ms | + + + + | Q-T Interval | 418 | ms | + + + + | QTC Calculation | 427 | ms | | (Bezet) | | | + + + + | Calculated P Stafford | 42 | degrees | + + + + | Calculated R Stafford | 53 | degrees | + + + + | Calculated T Stafford | 60 | degrees | + + + + | Diagnosis | Please refer to Providers office visit note | | | | for Providers Interpretation.Confirmed by | | | | [facility], PETRA Martino ([id number]), | | | | editorial clerk Issac Blackburn ([id number]) on 10/16/2017 | | | | 4:56:19 PM | | + + + + + + + | Specimen | Performing Laboratory | + + + | | [facility] [address] [address] | + + + from Last 3 Months Insurance + +--------+ +------+-------+ + | Payer | Benefi | Subscriber | Type | Phone | Address | | | t Plan | ID | | | | | | / | | | | | | | Group | | | | | + +--------+ +------+-------+ + | MEDICAID | [place]ASTER | [id number] | | | [address] | | | N | | | | [place], [place] | | | [place] | | | | [address] | | | HAND PACKAGER | | | | | + +--------+ +------+-------+ + + +--------+ +--------+ + + | Guarantor Name | Accoun | Relation to | Date | Phone | Billing Address | | | t Type | Patient | of | | | | | | | | | | + +--------+ +--------+ + + | BEVERLEY WIN | Person | Self [birth year] Home: | [address] | | | [place] | | 1960 | [phone] | [address] [place] | | | em[place] | | | [phone] | [phone] | + +--------+ +--------+ + +
--- OUTSIDE RECORDS SUMMARY | ~2017-12-30 | XMS | Encounter Summary ---
Demographics + + + | Address | [address] | | | [place] [address] | + + + | Home Phone | | + + + | Preferred Language | Unknown | + + + | Marital Status | Single | + + + | Protestant Affiliation | 1013 | + + + | Race | Unknown | + + + | Ethnic Group | Unknown | + + + Author + + + | Author | [facility] | + + + | Organization | [facility] | + + + | Address | Unknown | + + + | Phone | Unavailable | + + + Support + + + + + | Name | Relationship | Address | Phone | + + + + + | Marianna Ly | ECON | [address] | | | | [place], [place] | | | | | [address] | | + + + + + Care Team Providers + +------+ + | Care Animal Husbandry Manager Name | Role | Phone | + +------+ + | Tahir Hill | PCP | | + +------+ + Encounter Details +--------+ + + + + | Date | Type | Department | Care Team | Description | +--------+ + + + + | 10/09/ | Telephone | [facility] | Lisandra Hurtado, | | | 2017 | | Pulmonology [address] | [place] | | | | | [address] | | | | | | [place] | | | | | | [address] | | | | | | [phone] | | | +--------+ + + + [...] | | | | | | [place] [address] | | | | | | [phone] | | | | | | | | +--------+---------+ + + + as of this encounter Visit Diagnoses Not on filein this encounter"
--- OUTSIDE RECORDS SUMMARY | ~2017-12-30 | XMS | Encounter Summary ---
Demographics + + + | Address | [address] | | | [place] [address] | + + + | Home Phone | | + + + | Preferred Language | Unknown | + + + | Marital Status | Single | + + + | Cheondoism Affiliation | 1013 | + + + | Race | Unknown | + + + | Ethnic Group | Unknown | + + + Author + + + | Author | [facility] | + + + | Organization | [facility] | + + + | Address | Unknown | + + + | Phone | Unavailable | + + + Support + + + + + | Name | Relationship | Address | Phone | + + + + + | Marianna Ly | ECON | [address] | | | | [address], [place] | | | | | [address] | | + + + + + Care Team Providers + +------+ + | Care Vacuum Bottle Assembler Name | Role | Phone | + [...] [place] | | | | | | [place] | | | | | | [address] | | | | | | [phone] | | | +--------+ + + + [...] [place] | | | | | | [place] [address] | | | | | | [phone] | | | | | | | | +--------+---------+ + + + as of this encounter Visit Diagnoses Not on filein this encounter"
--- OUTSIDE RECORDS SUMMARY | ~2017-12-30 | XMS | Encounter Summary ---
Demographics + + + | Address | [address] | | | [place] [address] | + + + | Home Phone [...] + + + | Author | [facility] | + + + | Organization | [facility] | + + + | Address | Unknown | + + + | Phone | Unavailable | + + + Support + + + + + | Name | Relationship | Address | Phone | + + + + + | Marianna Ly | ECON | [address] | | | | [address], [place] | | | | | [address] | | + + + + + Care Team Providers + +------+ + | Care Surgical Assist Name | Role | Phone | + [...] [place] | | | | | | [address] | | | | | | [phone] | | | +--------+ + + + [...] | | | | | [place] [address] | | | | | | [phone] | | | | | | | | +--------+---------+ + + + as of this encounter Visit Diagnoses Not on filein this encounter"
--- OUTSIDE RECORDS SUMMARY | ~2017-12-30 | XMS | Encounter Summary ---
Demographics + + + | Address | [address] | | | [place] [address] | + + + | Home Phone | | + + + | Preferred Language | Unknown | + + + | Marital Status | Single | + + + | Voodoo Affiliation | 1013 | + + + | Race | Unknown | + + + | Ethnic Group | Unknown | + + + Author + + + | Author | [facility] | + + + | Organization | [facility] | + + + | Address | Unknown | + + + | Phone | Unavailable | + + + Support + + + + + | Name | Relationship | Address | Phone | + + + + + | Marianna Ly | ECON | [address] | | | | [address], [place] | | | | | [address] | | + + + + + Care Team Providers + +------+ + | Care Book Sewing Machine Operator Name | Role | Phone | + +------+ + | Tahir Hill | PCP | | + +------+ + Reason for Visit +--------+ + | Reason | Comments | +--------+ + | Other | [facility] | +--------+ + Encounter Details +--------+ + + + + | Date | Type | Department | Care Team | Description | +--------+ + + + + | 10/19/ | Documentati | [facility] | Kavitha Robledo, | Other ([facility] | | 2018 | on Only | Cardiology Dal[place] | ANGEL | Cynthia) | | | | [address] | | | | | | [place] | | | | | | [address] | | | | | | [phone] | | | +--------+ + + + [...] [place] | | | | | | [place] [address] | | | | | | [phone] | | | | | | | | +--------+---------+ + + + as of this encounter Results Lipid panel (10/17/2017 7:42 AM) + +-------+ [...] | + + + | Blood | [facility] [address] [place] | | | [address] | + + + Comprehensive metabolic panel [...] + + | Blood | [facility] [address] [place] [address], [facility] [address] [place] | | | [address] | + + + Transferrin (10/17/2017 7:42 AM) + +--------+ + | Component | Value | Ref Range | + +--------+ + | TRANSFERRIN | 245.11 | 180 - 329 | + +--------+ + + + + | Specimen | Performing Laboratory | + + + | Blood | [facility] [address] [place] [address] [place] | | | [address] | + + + Ferritin (10/17/2017 7:42 AM) + +-------+ + | Component | Value | Ref Range | + +-------+ + | FERRITIN | 162.8 | 30 - 400 ng/mL | + +-------+ + + + + | Specimen | Performing Laboratory | + + + | Blood | [facility] [address] | | | [address] | + + + Iron panel (10/17/2017 7:42 AM) [...] + | Blood | [facility] [address] [facility] [address] [place], [place] | | | [address] | + + + CBC W/Auto Diff [...] + | Blood | [facility] [address] [place] | | | [address] | + + + in this encounter Visit Diagnoses Not on filein this encounter"
--- OUTSIDE RECORDS SUMMARY | ~2017-12-30 | XMS | Clinical Summary ---
Demographics + + + | Address | [address] | | | [place] [address] | + + + | Home Phone | | + + + | Preferred Language | Unknown | + + + | Marital Status | | + + + | Jewish Affiliation | 1013 | + + + | Race | Unknown | + + + | Ethnic Group | Unknown | + + + Author + + + | Author | [facility] | | | and [place] | + + + | Organization | [facility] | | [...] [address], [place] | | | | | [address] | | + + + + + Care Team Providers + +------+ + | Care Bail Agent Name | Role | Phone | + [...] | | | | | | | ([facility]) | | | | | [...] | 1/20 | | e | | ([facility]) | | | | 16 | [...] + + + + + | Overview: [facility] | + + + +---+ [...] | MODA | xxxxxxxx | Medica | [phone] | | | MEDICAID HMO | HEALTH [...] emma | | | [address] | [place] [address] | + +--------+ +--------+ + +
--- OUTSIDE RECORDS SUMMARY | ~2017-12-30 | XMS | Encounter Summary ---
Demographics + + + | Address | [address] | | | [place] [address] | + + + | Home Phone [...] + + + | Author | [facility] | + + + | Organization | [facility] | + + + | Address | Unknown | + + + | Phone | Unavailable | + + + Support + + + + + | Name | Relationship | Address | Phone | + + + + + | Marianna Ly | ECON | [address] | | | | [address], [place] | | | | | [address] | | + + + + + Care Team Providers + +------+ + | Care Renewals Manager Name | Role | Phone | + +------+ + | Tahir HillP | PCP | | + +------+ + Encounter Details +--------+ + + + + | Date | Type | Department | Care Team | Description | +--------+ + + + + | 10/30/ | Ancillary | [facility] | MattiechuchoDomonique salgado | H/O syncope; | | 2018 | Procedure | ECHO | [facility] [address] | Essential | | | | | [place] | hypertension with | | | | | [place] [address] | goal blood pressure | | | | | [phone] | less than 130/80; | | | [...] syndrome | +--------+ + + + + Social [...] [place] | | | | | | [place] [address] | | | | | | [phone] | | | | | | | | +--------+---------+ + + + as of this encounter Procedures + +--------+ + + + | [...] | | + +--------+ + + + in this encounter Results ECHO outside interpretation standard (10/30/2017 3:43 PM) + + + | Specimen | Performing Laboratory | + + + | | [address] [address] | + + + + + | [...] Narrative | + + | Patient Name: Joselin Win Date of : 1960 | | [...] | e': 0.07 m/s Lateral E/e': 7.35 [place]: Authenticated | | by: JORGE NOVAK MD Report Date/Time: 10-30-2017 17:52:14 | + + + + | Procedure Note | + + | Jayce, Rad Results In - 10/30/2017 6:00 PM PST Patient Name: Abena Win of | | : 1960ccession: [id number] Physician: JORGE NOVAK MD | | INDICATIONS [...] mlLAESV Index (A-L): 24.66 ml/m2LAAs A2C: 15.85 [id number] A-L | | A2C: 42.05 mlLALs A2C: 5.07 cmLAAs A4C: 20.65 [id number] A-L A4C: 68.39 mlLALs | | A4C: 5.29 cmRAAs: 16.87 [id number] A-L: 44.78 mlRAESV MOD: 45.69 mlRALs: 5.39 | | cmTAPSE: 2.19 cmAV maxP.05 mmHgAV meanP.73 mmHgAV Vmax: 1.32 m/Mariam | | Vmean: 0.90 m/Mariam VTI: 29.89 cmAVA Vmax: 3.41 cm2AVA (VTI): 3.01 [id number] Vmax: | | 0.00 cm2/m2AVAI (VTI): 0.00 cm2/m2LVOT maxP.63 mmHgLVOT meanP.94 mmHgLVSI | | Dopp: 40.60 ml/m2LVSV Dopp: 90.15 mlLVOT Vmax: 1.07 m/sLVOT Vmean: 0.63 m/sLVOT | | VTI: 21.41 cmMV A Porter: 0.37 m/sMV DecT: 232.01 msMV E Porter: 0.58 m/sMV E/A | | Ratio: 1.53 Septal e': 0.08 m/sSeptal E/e': 7.16 Lateral e': 0.07 m/sLateral | | E/e': 7.35 [place]: Authenticated by: Jean Marie LEMUS Date/Time: 10-30-2017 [...] | |Lateral E/e': 7.35 | | | |[place]: | |Authenticated by: JORGE NOVAK MD | [...] valvular abnormalities are noted. | + + in this encounter Visit Diagnoses + + | Diagnosis | + + | H/O syncope | + + | Personal history of other specified diseases | + + | Essential hypertension with goal blood pressure less than 130/80 | + + | Hyperlipidemia, unspecified hyperlipidemia type | + + | Chronic obstructive pulmonary disease, unspecified COPD type (HCC) | + + | Thoracoabdominal aortic aneurysm, without rupture (HCC) | + + | Thoracoabdominal aneurysm without mention of rupture | + + | Obstructive sleep apnea syndrome | + + | Obstructive sleep apnea (adult) (pediatric) | + +"
--- OUTSIDE RECORDS SUMMARY | ~2017-12-30 | XMS | Encounter Summary ---
Demographics + + + | Address | [address] | | | [place] [address] | + + + | Home Phone | | + + + | Preferred Language | Unknown | + + + | Marital Status | Single | + + + | Faith Affiliation | 1013 | + + + | Race | Unknown | + + + | Ethnic Group | Unknown | + + + Author + + + | Author | [facility] | + + + | Organization | [facility] | + + + | Address | Unknown | + + + | Phone | Unavailable | + + + Support + + + + + | Name | Relationship | Address | Phone | + + + + + | Marianna Ly | ECON | [address] | | | | | [address], [place] | | | | | [address] | | + + + + + Care Team Providers + +------+ + | Care Steam Table Associate Name | Role | Phone | + +------+ + | Tahir Hill | PCP | | + +------+ + Reason for Visit +--------+ + | Reason | Comments | +--------+ + | Other | [facility], Pulmonary Function Test | +--------+ + Encounter Details +--------+ + + + + | Date | Type | Department | Care Team | Description | +--------+ + + + + | 11/01/ | Documentati | [facility] | Adelina Chairez, | Other ([facility] [place] | | 2018 | on Only | Cardiology [place] | [facility] | Clinic, Pulmonary | | | | [address] | | Function Test) | | | | [place] | | | | | | [address] | | | | | | [phone] | | | +--------+ + + + [...] [address] | | | | | | [place] [address] | | | | | | [phone] | | | | | | | | +--------+---------+ + + + as of this encounter Visit Diagnoses Not on filein this encounter"
--- OUTSIDE RECORDS SUMMARY | ~2017-12-30 | XMS | Encounter Summary ---
Demographics + + + | Address | [address] | | | [place] [address] | + + + | Home Phone | | + + + | Preferred Language | Unknown | + + + | Marital Status | Single | + + + | Worship Affiliation | 1013 | + + + | Race | Unknown | + + + | Ethnic Group | Unknown | + + + Author + + + | Author | [facility] | + + + | Organization | [facility] | + + + | Address | Unknown | + + + | Phone | Unavailable | + + + Support + + + + + | Name | Relationship | Address | Phone | + + + + + | Marianna Ly | ECON | [address] | | | | | [address], [place] | | | | | [address] | | + + + + + Care Team Providers + +------+ + | Care Lab Asst Name | Role | Phone | + [...] [place] | | | | | | [address] | | | | | | [phone] | | | +--------+ + + + [...] [place] | | | | | | [place] [address] | | | | | | [phone] | | | | | | | [...] | + + + | Blood | [facility] [address] [place] | | | [address] | + + + Comprehensive metabolic panel [...] + + | Blood | [facility] [address] [place] [address], [facility] [address] [place] | | | [address] | + + + Transferrin (10/17/2017 7:42 AM) + +--------+ + | Component | Value | Ref Range | + +--------+ + | TRANSFERRIN | 245.11 | 180 - 329 | + +--------+ + + + + | Specimen | Performing Laboratory | + + + | Blood | [facility] [address] [place] [address] [place] | | | [address] | + + + Ferritin (10/17/2017 7:42 AM) + +-------+ + | Component | Value | Ref Range | + +-------+ + | FERRITIN | 162.8 | 30 - 400 ng/mL | + +-------+ + + + + | Specimen | Performing Laboratory | + + + | Blood | [facility] [address] | | | [address] | + + + Iron panel (10/17/2017 [...] + | Blood | [facility] 1100 [facility] 13 [place], [place] | | | [address] | + + + CBC W/Auto Diff [...] + | Blood | [facility] [address] [place] | | | [address] | + + + in this encounter Visit Diagnoses Not on filein this encounter"
--- OUTSIDE RECORDS SUMMARY | ~2017-12-30 | XMS | Clinical Summary ---
Demographics + + + | Address | [address] | | | [place] [address] | + + + | Home Phone | | + + + | Preferred Language | Unknown | + + + | Marital Status | Single | + + + | Mosque Affiliation | 1013 | + + + | Race | Unknown | + + + | Ethnic Group | Unknown | + + + Author + + + | Author | [email or web address] | + + + | Organization | [email or web address] | + + + | Address | Unknown | + + + | Phone | Unavailable | + + + Support + + + + + | Name | Relationship | Address | Phone | + + + + + | Marianna Ly | ECON | [address] | | | | | [address], [place] | | | | | [address] | | + + + + + Care Team Providers + +------+ + | Care Business Services Vice President Name | Role | Phone | + [...] | 2018 | on Only | | CONTENT STRATEGY LEAD | JAMES Hill) | +--------+ + + + + | 11/01/ | Documentati | | Adelina Chairez, | Other ([facility] | | 2017 | on Only | | CONTENT STRATEGY LEAD | Clinic, Pulmonary | | | | [...] | | | | | type ([facility]); | | | | | | Thoracoabdominal [...] | | | 2017 | | | CONTENT STRATEGY LEAD | | +--------+ + + + + [...] [address] | | | | | | [place] [address] | | | | | | [phone] | | | | | | | [...] Laboratory | + + + | | [place] [address] [place] [address] | + + + + + | [...] | e': 0.07 m/s Lateral E/e': 7.35 Medical Services Coordinator: Authenticated | | by: JORGE NOVAK MD Report Date/Time: 10-30-2017 17:52:14 | + + + + | Procedure Note | + + | Jayce, Rad Results In - 10/30/2017 6:00 PM PST Patient Name: Abena Win of | | : 1960ccession: [id number] Physician: JORGE NOVAK MD | | INDICATIONS [...] mlLAESV Index (A-L): 24.66 ml/m2LAAs A2C: 15.85 [id number] A-L | | A2C: 42.05 mlLALs A2C: 5.07 cmLAAs A4C: 20.65 in6LHMOS A-L A4C: 68.39 mlLALs | | A4C: 5.29 cmRAAs: 16.87 [id number] A-L: 44.78 mlRAESV MOD: 45.69 mlRALs: 5.39 | | cmTAPSE: 2.19 cmAV maxP.05 mmHgAV meanP.73 mmHgAV Vmax: 1.32 m/Mariam | | Vmean: 0.90 m/Mariam VTI: 29.89 cmAVA Vmax: 3.41 cm2AVA (VTI): 3.01 [id number] Vmax: | | 0.00 cm2/m2AVAI (VTI): 0.00 cm2/m2LVOT maxP.63 mmHgLVOT meanP.94 mmHgLVSI | | Dopp: 40.60 ml/m2LVSV Dopp: 90.15 mlLVOT Vmax: 1.07 m/sLVOT Vmean: 0.63 m/sLVOT | | VTI: 21.41 cmMV A Porter: 0.37 m/sMV DecT: 232.01 msMV E Porter: 0.58 m/sMV E/A | | Ratio: 1.53 Septal e': 0.08 m/sSeptal E/e': 7.16 Lateral e': 0.07 m/sLateral | | E/e': 7.35 Medical Services Coordinator: Authenticated by: Jean Marie LEMUS Date/Time: 10-30-2017 [...] | |Lateral E/e': 7.35 | | | |Medical Services Coordinator: | |Authenticated by: JORGE NOVAK MD | [...] + | Blood | [facility] [address] | | | [address] | + + + Transferrin (10/17/2017 7:42 AM) + +--------+ + | Component | Value | Ref Range | + +--------+ + | TRANSFERRIN | 245.11 | 180 - 329 | + +--------+ + + + + | Specimen | Performing Laboratory | + + + | Blood | [facility] [address] | | | [address] | + + + Ferritin (10/17/2017 7:42 AM) + +-------+ + | Component | Value | Ref Range | + +-------+ + | FERRITIN | 162.8 | 30 - 400 ng/mL | + +-------+ + + + + | Specimen | Performing Laboratory | + + + | Blood | [facility] [address] [place], [facility] 13 [place], [place] | | | [address] | + + + Lipid panel (10/17/2017 [...] | + + + | Blood | [facility] [address] [place] [address] [facility] 13 [place], [place] | | | [address] | + + + Comprehensive metabolic panel [...] + | Blood | [facility] [address] [place] | | | [address] | + + + CBC W/Auto Diff [...] | + + + | Blood | [facility] [address] [place] [address], [place] | | | [address] | + + + EKG STANDARD 12 [...] + + + + | Calculated P [place] | 42 | degrees | + + + + | Calculated R [place] | 53 | degrees | + + + + | Calculated T [place] | 60 | degrees | + + + + | Diagnosis | Please refer to Providers office visit note | | | | for Providers Interpretation.Confirmed by | | | | [facility] Read Only, PETRA Martino ([id number]), | | | | senior technical editor Issac Blackburn ([id number]) on 10/16/2017 | | | | 4:56:19 PM | | + + + + + + + | Specimen | Performing Laboratory | + + + | | [facility] [address] [address] | + + + from Last 3 [...] | | [place] | | | | [address] | | | CUSTODY OFFICER | | | | | + +--------+ [...] | em[place] | | | [address] | [address] | + +--------+ +--------+ + +
--- OUTSIDE RECORDS SUMMARY | ~2017-12-30 | XMS | Encounter Summary ---
Demographics + + + | Address | [address] | | | [place] [address] | + + + | Home Phone | | + + + | Preferred Language | Unknown | + + + | Marital Status | Single | + + + | Tenriism Affiliation | 1013 | + + + | Race | Unknown | + + + | Ethnic Group | Unknown | + + + Author + + + | Author | [facility] [employer] [facility] | + + + | Organization | [facility] [employer] [facility] | + + + | Address | Unknown | + + + | Phone | Unavailable | + + + Support + + + + + | Name | Relationship | Address | Phone | + + + + + | Marianna Ly | ECON | [address] | | | | [address], [place] | | | | | [address] | | + + + + + Care Team Providers + +------+ + | Care Large Animal Veterinarian Name | Role | Phone | + [...] | on Only | Cardiology Dalila | JOURNEYMAN ELECTRICIAN PV INSTALLER | J[place]) | | | | [address] | | | | | | [place] | | | | | | [address] | | | | | | [phone] | | | +--------+ + + + [...] | | | | | [place] [address] | | | | | | [phone] | | | | | | | | +--------+---------+ + + + as of this encounter Visit Diagnoses Not on filein this encounter"
--- OUTSIDE RECORDS SUMMARY | ~2017-12-30 | XMS | Encounter Summary ---
Demographics + + + | Address | [address] | | | [place] [address] | + + + | Home Phone [...] + + + | Author | [facility] [facility] | + + + | Organization | [facility] | + + + | Address | Unknown | + + + | Phone | Unavailable | + + + Support + + + + + | Name | Relationship | Address | Phone | + + + + + | Marianna Ly | ECON | [address] | | | | | [address], [place] | | | | | [address] | | + + + + + Care Team Providers + +------+ + | Care Gang Supervisor Name | Role | Phone | [...] [place] | | | | | | [address] | | | | | | [phone] | | | +--------+ + + + [...] | | | | | [place] [address] | | | | | | [phone] | | | | | | | | +--------+---------+ + + + as of this encounter Visit Diagnoses Not on filein this encounter"
--- OUTSIDE RECORDS SUMMARY | ~2017-12-30 | XMS | Encounter Summary ---
Demographics + + + | Address | [address] | | | [place] [address] | + + + | Home Phone | | + + + | Preferred Language | Unknown | + + + | Marital Status | Single | + + + | Adventist Affiliation | 1013 | + + + | Race | Unknown | + + + | Ethnic Group | Unknown | + + + Author + + + | Author | [facility] [employer] [employer] [facility] | + + + | Organization | [facility] [employer] [facility] | + + + | Address | Unknown | + + + | Phone | Unavailable | + + + Support + + + + + | Name | Relationship | Address | Phone | + + + + + | Marianna Ly | ECON | [address] | | | | [address], [place] | | | | | [address] | | + + + + + Care Team Providers + +------+ + | Care Engine Designer Name | Role | Phone | + [...] hypertension with | | | | | [place] [address] | goal blood pressure | | | | | [phone] | less than 130/80; | | | [...] [address] | | | | | | [place] [address] | | | | | | [phone] | | | | | | | [...] | + + + | | [address] [address] | + + + + + | [...] | e': 0.07 m/s Lateral E/e': 7.35 Personal Protection Specialist: Authenticated | | by: JORGE NOVAK MD Report Date/Time: 10-30-2017 17:52:14 | + + + + | Procedure Note | + + | Jayce, Rad Results In - 10/30/2017 6:00 PM PST Patient Name: Abena Win of | | : 1960ccession: [id number] Physician: JORGE NOVAK MD | | INDICATIONS [...] mlLAESV Index (A-L): 24.66 ml/m2LAAs A2C: 15.85 [id number] A-L | | A2C: 42.05 mlLALs A2C: 5.07 cmLAAs A4C: 20.65 [id number] A-L A4C: 68.39 mlLALs | | A4C: 5.29 cmRAAs: 16.87 [id number] A-L: 44.78 mlRAESV MOD: 45.69 mlRALs: 5.39 | | cmTAPSE: 2.19 cmAV maxP.05 mmHgAV meanP.73 mmHgAV Vmax: 1.32 m/Mariam | | Vmean: 0.90 m/Mariam VTI: 29.89 cmAVA Vmax: 3.41 cm2AVA (VTI): 3.01 [id number] Vmax: | | 0.00 cm2/m2AVAI (VTI): 0.00 cm2/m2LVOT maxP.63 mmHgLVOT meanP.94 mmHgLVSI | | Dopp: 40.60 ml/m2LVSV Dopp: 90.15 mlLVOT Vmax: 1.07 m/sLVOT Vmean: 0.63 m/sLVOT | | VTI: 21.41 cmMV A Porter: 0.37 m/sMV DecT: 232.01 msMV E Porter: 0.58 m/sMV E/A | | Ratio: 1.53 Septal e': 0.08 m/sSeptal E/e': 7.16 Lateral e': 0.07 m/sLateral | | E/e': 7.35 Personal Protection Specialist: Authenticated by: Jean Marie LEMUS Date/Time: [...] | |Lateral E/e': 7.35 | | | |Personal Protection Specialist: | |Authenticated by: JORGE NOVAK MD [...]
--- OUTSIDE RECORDS SUMMARY | ~2017-12-30 | XMS | Encounter Summary ---
Demographics + + + | Address | [address] | | | [place] [address] | + + + | Home Phone | | + + + | Preferred Language | Unknown | + + + | Marital Status | Single | + + + | Holiness Affiliation | 1013 | + + + | Race | Unknown | + + + | Ethnic Group | Unknown | + + + Author + + + | Author | [facility] | + + + | Organization | [facility] | + + + | Address | Unknown | + + + | Phone | Unavailable | + + + Support + + + + + | Name | Relationship | Address | Phone | + + + + + | Marianna Ly | ECON | [address] | | | | [address], [place] | | | | | [address] | | + + + + + Care Team Providers + +------+ + | Care Watchmaker Apprentice Name | Role | Phone | + [...] [place] | | | | | | [address] | | | | | | [phone] | | | +--------+ + + + [...] [address] | | | | | | [place] [address] | | | | | | [phone] | | | | | | | [...] | + + + | Blood | [facility] [place] | | | [address] | + + + Comprehensive metabolic panel [...] + + | Blood | [facility] [address] [place] [address], [facility] [address] | | | [address] | + + + Transferrin (10/17/2017 7:42 AM) + +--------+ + | Component | Value | Ref Range | + +--------+ + | TRANSFERRIN | 245.11 | 180 - 329 | + +--------+ + + + + | Specimen | Performing Laboratory | + + + | Blood | [facility] [address] [place] [address] [place] | | | [address] | + + + Ferritin (10/17/2017 7:42 AM) + +-------+ + | Component | Value | Ref Range | + +-------+ + | FERRITIN | 162.8 | 30 - 400 ng/mL | + +-------+ + + + + | Specimen | Performing Laboratory | + + + | Blood | [facility] [address] | | | [address] | + + + Iron panel (10/17/2017 [...] + | Blood | [facility] [address] [facility] [address] [place], [place] | | | [address] | + + + CBC W/Auto Diff [...] + | Blood | [facility] [address] [place] | | | [address] | + + + in this encounter Visit Diagnoses Not on filein this encounter"
--- OUTSIDE RECORDS SUMMARY | ~2017-12-30 | XMS | Encounter Summary ---
Demographics + + + | Address | [address] | | | [place] [address] | + + + | Home Phone | | + + + | Preferred Language | Unknown | + + + | Marital Status | Single | + + + | Methodist Affiliation | 1013 | + + + | Race | Unknown | + + + | Ethnic Group | Unknown | + + + Author + + + | Author | [facility] [employer] [facility] [employer] [facility] | + + + | Organization | [facility] [employer] [employer] [facility] | + + + | Address | Unknown | + + + | Phone | Unavailable | + + + Support + + + + + | Name | Relationship | Address | Phone | + + + + + | Marianna Ly | ECON | [address] | | | | [address], [place] | | | | | [address] | | + + + + + Care Team Providers + +------+ + | Care Code And Test Clerk Name | Role | Phone | + +------+ + | Tahir Hill MANAGER ENDOSCOPY | PCP | | + +------+ + [...] | | | | | hypertension | INDIGO VAT TENDER CLOTH [address] | | | | | | with goal | [address]ra [address] | | | | | | blood | John F | | | | | | pressure | [place] | | | | | | less than | [address] | | | | | | 130/80 | Phone: | | | | | | Hyperlipidem | [phone] | | | | | | ia, | Fax: | | | | | | unspecified | [phone] | | | | | | hyperlipidem [...] | | | Way [address] | [place] [address] | less than 130/80 | | | | [place] [address] | [phone] | (Primary Dx); | | | | [phone] | | Hyperlipidemia, | | | | [...] you an Echo to be done at [facility] in one year, see me back in one year in this encounter Progress Notes Mattiedolores Domonique ChenNASREEN - 11/27/2017 11:00 AM PDTFormatting of this note may be differen t from the original. Date of visit: 11/27/2017 Primary Care Physician: TAHIR HILL CHIEF COMPLAINT: Chief Complaint Patient presents with Follow-up 2 month - echo STA 10/30/17 HISTORY OF PRESENT ILLNESS: Mr. Joselin Win, [place], is a 57-year-old man who is here [...] and platelet count. His Echo performed at [facility] on October 30, 2017 reported a normal [...] be seen by Dr. Glez at the [facility] sleep lab in January to get evaluation [...] marijuana, crack, mushrooms. Exercises with tasiks in [employer], walking, a nd tolerates. 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 Ascending [...] EK2015: Normal sinus rhythm. Rate 63 bpm, [place] 144 ms, QRS 94 ms, QTC 407 ms, perso phoenix reviewed by me EK2017: Normal sinus rhythm. Rate 63 bpm, IA 146 ms, QRS 96 ms, QTC 427 [...] which I ordered when I saw him [facility]. His labs performed 10/17/17 showed [...] and platelet count. His Echo performed at [facility] on October 30, 2017 reported a normal [...] He will be following up with the [place] sleep lab in January, and hopefully will [...] past surgical history. Problem list. NASREEN Boyer [facility] Cardiology 11/27/2017in this encounter Plan of Treatment +--------+---------+ + + + | Date | Type | Specialty | Care Team | Description | +--------+---------+ + + + | 01/31/ | Office | Pulmonology | Florian Lujan MD | | | 2018 | Visit | | [address] | | | | | | [place] [address] | | | | | | [phone] | | | | | | | [...]
--- OUTSIDE RECORDS SUMMARY | ~2017-12-30 | XMS | Encounter Summary ---
Demographics + + + | Address | [address] | | | [place] [address] | + + + | Home Phone | | + + + | Preferred Language | Unknown | + + + | Marital Status | Single | + + + | Nondenominational Affiliation | 1013 | + + + | Race | Unknown | + + + | Ethnic Group | Unknown | + + + Author + + + | Author | [facility] [employer] [facility] | + + + | Organization | [facility] [employer] [facility] | + + + | Address | Unknown | + + + | Phone | Unavailable | + + + Support + + + + + | Name | Relationship | Address | Phone | + + + + + | Marianna Ly | ECON | [address] | | | | | [address], [place] | | | | | [address] | | + + + + + Care Team Providers + +------+ + | Care Technician Support Engineer Name | Role | Phone | + +------+ + | Tahir Hill REINSPECTOR | PCP | | + +------+ + [...] | | | | | hypertension | CELL STRIPPER FINAL [address] | | | | | | with goal | [address]ra [place] | | | | | | blood | [place] | | | | | | pressure | [place] | | | | | | less than | [address] | | | | | | 130/80 | Phone: | | | | | | Hyperlipidem | [phone] | | | | | | ia, | Fax: | | | | | | unspecified | [phone] | | | | | | hyperlipidem [...] | | | Way [address] | [place] [address] | less than 130/80 | | | | [place] [address] | [phone] | (Primary Dx); | | | | [phone] | | Hyperlipidemia, | | | | [...] you an Echo to be done at [facility] in one year, see me back in one year in this encounter Progress Notes Mattiedolores Domonique ChenNASREEN - 11/27/2017 11:00 AM PDTFormatting of this note may be differen t from the original. Date of visit: 11/27/2017 Primary Care Physician: TAHIR HILL CHIEF COMPLAINT: Chief Complaint Patient presents with Follow-up 2 month - echo STA 10/30/17 HISTORY OF PRESENT ILLNESS: Mr. Joselin Win, [place], is a 57-year-old man who is here [...] and platelet count. His Echo performed at [facility] on October 30, 2017 reported a normal [...] be seen by Dr. Glez at the [facility] sleep lab in January to get evaluation [...] marijuana, crack, mushrooms. Exercises with tasiks in [employer], walking, a nd tolerates. 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 [...] EK2015: Normal sinus rhythm. Rate 63 bpm, NE 144 ms, QRS 94 ms, QTC 407 ms, perso phoenix reviewed by me EK2017: Normal sinus rhythm. Rate 63 bpm, NE 146 ms, QRS 96 ms, QTC 427 [...] I ordered when I saw him [facility]. His labs performed 10/17/17 showed normal [...] and platelet count. His Echo performed at [facility] on October 30, 2017 reported a normal [...] He will be following up with the [place] sleep lab in January, and hopefully will [...] past surgical history. Problem list. NASREEN Boyer [facility] Cardiology 11/27/2017in this encounter Plan of Treatment +--------+---------+ + + + | Date | Type | Specialty | Care Team | Description | +--------+---------+ + + + | 01/31/ | Office | Pulmonology | Florian Lujan MD | | | 2018 | Visit | | [address] | | | | | | [place] [address] | | | | | | [phone] | | | | | | | [...]
--- OUTSIDE RECORDS SUMMARY | ~2017-12-30 | XMS | Encounter Summary ---
Demographics + + + | Address | [address] | | | [place] [address] | + + + | Home Phone | | + + + | Preferred Language | Unknown | + + + | Marital Status | Single | + + + | Christian Affiliation | 1013 | + + + | Race | Unknown | + + + | Ethnic Group | Unknown | + + + Author + + + | Author | [facility] [facility] | + + + | Organization | [facility] [employer] [facility] | + + + | Address | Unknown | + + + | Phone | Unavailable | + + + Support + + + + + | Name | Relationship | Address | Phone | + + + + + | Marianna Ly | ECON | [address] | | | | | [address], [place] | | | | | [address] | | + + + + + Care Team Providers + +------+ + | Care Inside Plant Supervisor Name | Role | Phone | [...] [place] | | | | | | [address] | | | | | | [phone] | | | +--------+ + + + [...] | | | | | [place] [address] | | | | | | [phone] | | | | | | | | +--------+---------+ + + + as of this encounter Visit Diagnoses Not on filein this encounter"
--- OUTSIDE RECORDS SUMMARY | ~2017-12-30 | XMS | Encounter Summary ---
Demographics + + + | Address | [address] | | | [place] [address] | + + + | Home Phone | | + + + | Preferred Language | Unknown | + + + | Marital Status | Single | + + + | Jain Affiliation | 1013 | + + + | Race | Unknown | + + + | Ethnic Group | Unknown | + + + Author + + + | Author | [facility] [facility] | + + + | Organization | [facility] [facility] | + + + | Address | Unknown | + + + | Phone | Unavailable | + + + Support + + + + + | Name | Relationship | Address | Phone | + + + + + | Marianna Ly | ECON | [address] | | | | | [address], [place] | | | | | [address] | | + + + + + Care Team Providers + +------+ + | Care Cut Plug Packer Name | Role | Phone | + +------+ + | Tahir Hill | PCP | | + +------+ + Encounter Details +--------+ + + + + | Date | Type | Department | Care Team | Description | +--------+ + + + + | 10/09/ | Telephone | [facility] | Lisandra Hurtado, | | | 2017 | | Pulmonology [address] | LICENSED EMBALMER SUPERVISOR | | | | | [address] | | | | | | [place] | | | | | | [address] | | | | | | [phone] | | | +--------+ + + + [...] | | | | | [place] [address] | | | | | | [phone] | | | | | | | | +--------+---------+ + + + as of this encounter Visit Diagnoses Not on filein this encounter"
--- OUTSIDE RECORDS SUMMARY | ~2017-12-30 | XMS | Encounter Summary ---
Demographics + + + | Address | [address] | | | [place] [address] | + + + | Home Phone [...] + + + | Author | [facility] [facility] [employer] [facility] | + + + | Organization | [facility] [facility] [employer] [facility] | + + + | Address | Unknown | + + + | Phone | Unavailable | + + + Support + + + + + | Name | Relationship | Address | Phone | + + + + + | Marianna Ly | ECON | [address] | | | | | [address], [place] | | | | | [address] | | + + + + + Care Team Providers + +------+ + | Care President Commercial Bank Name | Role | Phone | + +------+ + | Tahir Hill NET FRONT END DEVELOPER | PCP | | + +------+ + [...] | | Required | | Essential | MANAGER ASSET [address] | Sleep | | | | | hypertension | [address]ra [address] | Disorders | | | | | with goal | [facility] | [facility] | | | | | blood | [place], [place] | HOSPITAL | | | | | pressure | [address] | [address] | | | | | less than | Phone: | [address] | | | | | 130/80 | [phone] | [place], [place] | | | | | Chronic | Fax: | [address] | | | | | obstructive | [phone] | Phone: | | | | | pulmonary | | [phone] | | | | | disease, | | Fax: | | | | | unspecified | | [phone] | | | | | COPD type | | | | | | | ([facility]) | | | | | | [...] | | / Cardiology | (primary) | MANAGER ASSET [address] | MANAGER ASSET [address] | | | | | hypertension | Mayra Ruby | [address] | | | | | f/u | John F | John F | | | | | annual-Vogel | [place], [place] | [place], [place] | | | | | transfer | [address] | [address] Phone: | | | | | Procedures | Phone: | [phone] | | | | | [place] OFFICE | [phone] | Fax: | | | | | OUTPATIENT | Fax: | [phone] | | | | | VISIT LEVEL | [phone] | | | | | | 1 [place] OFFICE | | | | | | | OUTPATIENT | | | | | | | VISIT LEVEL | | | | | | | 2 [place] OFFICE | | | | | | | OUTPATIENT | | | | | | | VISIT LEVEL | | | | | | | 3 [place] OFFICE | | | | | | | OUTPATIENT | | | | | | | VISIT LEVEL | | | | | | | 4 [place] OFFICE | | | | | | [...] | | 2018 | Visit | Cardiology [place] | NASREEN Chen [address] | Dx); Essential | | | | [address] | [address]ra [address] F | hypertension with | | | | Way [address] | [place] [address] | goal blood pressure | | | | [place] [address] | [phone] | less than 130/80; | | | | [phone] | | Hyperlipidemia, | | | | [...] ou fasting labs to be done at [facility] and also ordered you an Echo to be done at [facility] Take Vit b12 again I have ordered refill on Atorvastatin and metoprolol for one year Consider using light compression knee high socks, look like soccer socks to help with varic ose veins I have referred you to Sleep lab at [facility] for sleep apnea evaluation See me [...] of Dr. Lujan on July 2017 [facility] documents that his COPD has been well-controlled [...] without it. 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 Rate 63 bpm, [place] 144 ms, QRS 94 ms, QTC 407 ms, perso phoenix reviewed by me EK2017: Normal sinus rhythm. Rate 63 bpm, NJ 146 ms, QRS 96 ms, QTC 427ms, [...] ordered him one to be done at [facility]. He also has not had any [...] so I have referred him to the [place] sleep lab for further evaluation of his [...] past surgical history. Problem list. Domonique ArenasNASREEN [facility] Cardiology 10/16/2017in this encounter Plan of Treatment +--------+---------+ + + + | Date | Type | Specialty | Care Team | Description | +--------+---------+ + + + | 01/31/ | Office | Pulmonology | Florian Lujan MD | | | 2017 | Visit | | [address] | | | | | | [place] [address] | | | | | | [phone] | | | | | | | [...] Laboratory | + + + | | [address] [place] [address] | + + + + + | [...] | e': 0.07 m/s Lateral E/e': 7.35 Supervisor Receiving And Processing: Authenticated | | by: JORGE NOVAK MD Report Date/Time: 10-30-2017 17:52:14 | + + + + | Procedure Note | + + | Jayce, Rad Results In - 10/30/2017 6:00 PM PST Patient Name: Abena Win of | | : 1962ccession: [id number] Physician: JORGE NOVAK MD | | INDICATIONS [...] mlLAESV Index (A-L): 24.66 ml/m2LAAs A2C: 15.85 [id number] A-L | | A2C: 42.05 mlLALs A2C: 5.07 cmLAAs A4C: 20.65 [id number] A-L A4C: 68.39 mlLALs | | A4C: 5.29 cmRAAs: 16.87 [id number] A-L: 44.78 mlRAESV MOD: 45.69 mlRALs: 5.39 | | cmTAPSE: 2.19 cmAV maxP.05 mmHgAV meanP.73 mmHgAV Vmax: 1.32 m/Mariam | | Vmean: 0.90 m/Mariam VTI: 29.89 cmAVA Vmax: 3.41 cm2AVA (VTI): 3.01 [id number] Vmax: | | 0.00 cm2/m2AVAI (VTI): 0.00 cm2/m2LVOT maxP.63 mmHgLVOT meanP.94 mmHgLVSI | | Dopp: 40.60 ml/m2LVSV Dopp: 90.15 mlLVOT Vmax: 1.07 m/sLVOT Vmean: 0.63 m/sLVOT | | VTI: 21.41 cmMV A Porter: 0.37 m/sMV DecT: 232.01 msMV E Porter: 0.58 m/sMV E/A | | Ratio: 1.53 Septal e': 0.08 m/sSeptal E/e': 7.16 Lateral e': 0.07 m/sLateral | | E/e': 7.35 Supervisor Receiving And Processing: Authenticated by: Jean Marie LEMUS Date/Time: 10-30-2017 [...] | |Lateral E/e': 7.35 | | | |Supervisor Receiving And Processing: | |Authenticated by: JORGE NOVAK MD | [...] + + + + | Calculated P Montandon | 42 | degrees | + + + + | Calculated R [place] | 53 | degrees | + + + + | Calculated T [place] | 60 | degrees | + + + + | Diagnosis | Please refer to Providers office visit note | | | | for Providers Interpretation.Confirmed by | | | | [facility] Read Only, PETRA Martino ([id number]), | | | | market editor Issac Blackburn ([id number]) on 10/16/2017 | | | | 4:56:19 PM | | + + + + + + + | Specimen | Performing Laboratory | + + + | | [facility] [address] [facility] [address] | + + + in this encounter [...]
--- OUTSIDE RECORDS SUMMARY | ~2017-12-30 | XMS | Encounter Summary ---
Demographics + + + | Address | [address] | | | [place] [address] | + + + | Home Phone | | + + + | Preferred Language | Unknown | + + + | Marital Status | Single | + + + | Episcopal Affiliation | 1013 | + + + | Race | Unknown | + + + | Ethnic Group | Unknown | + + + Author + + + | Author | [facility] [facility] | + + + | Organization | [facility] [facility] | + + + | Address | Unknown | + + + | Phone | Unavailable | + + + Support + + + + + | Name | Relationship | Address | Phone | + + + + + | Marianna Ly | ECON | [address] | | | | [place], [place] | | | | | [address] | | + + + + + Care Team Providers + +------+ + | Care Senior Microstrategy Developer Name | Role | Phone | + +------+ + | Tahir Hill | PCP | | + +------+ + Encounter Details +--------+ + + + + | Date | Type | Department | Care Team | Description | +--------+ + + + + | 11/27/ | Documentati | [facility] | Issac Blackburn MA | | | 2018 | on Only | Cardiology [place] | | | | | | [address] | | | | | | [place] | | | | | | [address] | | | | | | [phone] | | | +--------+ + + + [...] [address] | | | | | | [place] [address] | | | | | | [phone] | | | | | | | | +--------+---------+ + + + as of this encounter Visit Diagnoses Not on filein this encounter"
--- OUTSIDE RECORDS SUMMARY | ~2017-12-30 | XMS | Encounter Summary ---
Demographics + + + | Address | [address] | | | [place] [address] | + + + | Home Phone | | + + + | Preferred Language | Unknown | + + + | Marital Status | Single | + + + | Sikh Affiliation | 1013 | + + + | Race | Unknown | + + + | Ethnic Group | Unknown | + + + Author + + + | Author | [facility] | + + + | Organization | [facility] | + + + | Address | Unknown | + + + | Phone | Unavailable | + + + Support + + + + + | Name | Relationship | Address | Phone | + + + + + | Marianna Ly | ECON | [address] | | | | | [place], [place] | | | | | [address] | | + + + + + Care Team Providers + +------+ + | Care Supervisor Mails Name | Role | Phone | + +------+ + | Tahir Hill | PCP | | + +------+ + Reason for Visit +--------+ + | Reason | Comments | +--------+ + | Other | [facility], Pulmonary Function Test | +--------+ + Encounter Details +--------+ + + + + | Date | Type | Department | Care Team | Description | +--------+ + + + + | 11/01/ | Documentati | [facility] | Adelina Chairez, | Other ([facility] [place] | | 2018 | on Only | Cardiology [place] | [facility] | Clinic, Pulmonary | | | | [address] | | Function Test) | | | | [place] | | | | | | [address] | | | | | | [phone] | | | +--------+ + + + [...] [address] | | | | | | [place] [address] | | | | | | [phone] | | | | | | | | +--------+---------+ + + + as of this encounter Visit Diagnoses Not on filein this encounter"
--- OUTSIDE RECORDS SUMMARY | ~2017-12-30 | XMS | Encounter Summary ---
Demographics + + + | Address | [address] | | | [place] [address] | + + + | Home Phone | | + + + | Preferred Language | Unknown | + + + | Marital Status | Single | + + + | Oriental Orthodox Affiliation | 1013 | + + + | Race | Unknown | + + + | Ethnic Group | Unknown | + + + Author + + + | Author | [facility] | + + + | Organization | [facility] | + + + | Address | Unknown | + + + | Phone | Unavailable | + + + Support + + + + + | Name | Relationship | Address | Phone | + + + + + | Marianna Ly | ECON | [address] | | | | | [address], [place] | | | | | [address] | | + + + + + Care Team Providers + +------+ + | Care Workers Compensation Coordinator Name | Role | Phone | + +------+ + | Tahir Hill | PCP | | + +------+ + Encounter Details +--------+ + + + + | Date | Type | Department | Care Team | Description | +--------+ + + + + | 10/09/ | Telephone | [facility] | Lisandra Hurtado, | | | 2017 | | Pulmonology [address] | [address] | | | | | [address] | | | | | | [place] | | | | | | [address] | | | | | | [phone] | | | +--------+ + + + [...] | | | | | [place] [address] | | | | | | [phone] | | | | | | | | +--------+---------+ + + + as of this encounter Visit Diagnoses Not on filein this encounter"
--- OUTSIDE RECORDS SUMMARY | ~2017-12-30 | XMS | Encounter Summary ---
Demographics + + + | Address | [address] | | | [place] [address] | + + + | Home Phone | | + + + | Preferred Language | Unknown | + + + | Marital Status | Single | + + + | Moravian Affiliation | 1013 | + + + | Race | Unknown | + + + | Ethnic Group | Unknown | + + + Author + + + | Author | [facility] | + + + | Organization | [facility] | + + + | Address | Unknown | + + + | Phone | Unavailable | + + + Support + + + + + | Name | Relationship | Address | Phone | + + + + + | Marianna Ly | ECON | [address] | | | | [address], [place] | | | | | [address] | | + + + + + Care Team Providers + +------+ + | Care Garment Form Assembler Name | Role | Phone | + +------+ + | Tahir Hill LICENSING AND REGISTRATION DIRECTOR | PCP | | + +------+ + [...] | Required | | Essential | MANAGER FOREIGN [address] | Sleep | | | | | hypertension | Mayra Ruby | Disorders | | | | | with goal | [facility] | [facility] | | | | | blood | [place], [place] | HOSPITAL | | | | | pressure | [address] | [address] | | | | | less than | Phone: | [address] | | | | | [address] | [phone] | [place], [place] | | | | | Chronic | Fax: | [address] | | | | | obstructive | [phone] | Phone: | | | | | pulmonary | | [phone] | | | | | disease, | | Fax: | | | | | unspecified | | [phone] | | | | | COPD type | | | | | | | ([facility]) | | | | | | | [...] | / Cardiology | (primary) | MANAGER FOREIGN [address] | MANAGER FOREIGN [address] | | | | | hypertension | Mayra Ruby | Mayra Ruby | | | | | f/u | John F | John F | | | | | annual-Vogel | [place], [place] | [place] | | | | | transfer | [address] | [address] Phone: | | | | | Procedures | Phone: | [phone] | | | | | PA OFFICE | [phone] | Fax: | | | | | OUTPATIENT | Fax: | [phone] | | | | | VISIT LEVEL | [phone] | | | | | | 1 [...] | | 2018 | Visit | Cardiology [place] | NASREEN Chen [address] | Dx); Essential | | | | [address] | Mayra Lopez F | hypertension with | | | | Way [address] | [place] [address] | goal blood pressure | | | | [place] [address] | [phone] | less than 130/80; | | | | [phone] | | Hyperlipidemia, | | | | [...] ou fasting labs to be done at [facility] [address] and also ordered you an Echo to be done at [facility] Take Vit b12 again I have ordered refill on Atorvastatin and metoprolol for one year Consider using light compression knee high socks, look like soccer socks to help with varic ose veins I have referred you to Sleep lab at [facility] for sleep apnea evaluation See me [...] of Dr. Lujan on July 2017 wh [facility] documents that his COPD has been well-controlled [...] without it. 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 He also has not had any [...] so I have referred him to the [place] sleep lab for further evaluation of his [...] past surgical history. Problem list. Domonique ArenasNASREEN [facility] Cardiology 10/16/2017in this encounter Plan of Treatment +--------+---------+ + + + | Date | Type | Specialty | Care Team | Description | +--------+---------+ + + + | 01/31/ | Office | Pulmonology | Florian Lujan MD | | | 2017 | Visit | | [address] | | | | | | [place] [address] | | | | | | [phone] | | | | | | | [...] Laboratory | + + + | | [address] [place] [address] | + + + + + | [...] | e': 0.07 m/s Lateral E/e': 7.35 Flue Gas Analyst: Authenticated | | by: JORGE NOVAK MD Report Date/Time: 10-30-2017 17:52:14 | + + + + | Procedure Note | + + | Jayce, Rad Results In - 10/30/2017 6:00 PM PST Patient Name: Abena Win of | | : 1960ccession: [id number] Physician: JORGE NOVAK MD | | INDICATIONS [...] mlLAESV Index (A-L): 24.66 ml/m2LAAs A2C: 15.85 he4XWJEK A-L | | A2C: 42.05 mlLALs A2C: 5.07 cmLAAs A4C: 20.65 tr3BAYQZ A-L A4C: 68.39 mlLALs | | A4C: 5.29 cmRAAs: 16.87 [id number] A-L: 44.78 mlRAESV MOD: 45.69 mlRALs: 5.39 | | cmTAPSE: 2.19 cmAV maxP.05 mmHgAV meanP.73 mmHgAV Vmax: 1.32 m/Mariam | | Vmean: 0.90 m/Mariam VTI: 29.89 cmAVA Vmax: 3.41 cm2AVA (VTI): 3.01 qf5KSOF Vmax: | | 0.00 cm2/m2AVAI (VTI): 0.00 cm2/m2LVOT maxP.63 mmHgLVOT meanP.94 mmHgLVSI | | Dopp: 40.60 ml/m2LVSV Dopp: 90.15 mlLVOT Vmax: 1.07 m/sLVOT Vmean: 0.63 m/sLVOT | | VTI: 21.41 cmMV A Porter: 0.37 m/sMV DecT: 232.01 msMV E Porter: 0.58 m/sMV E/A | | Ratio: 1.53 Septal e': 0.08 m/sSeptal E/e': 7.16 Lateral e': 0.07 m/sLateral | | E/e': 7.35 Flue Gas Analyst: Authenticated by: Jean Marie LEMUS Date/Time: 10-30-2017 [...] | |Lateral E/e': 7.35 | | | |Flue Gas Analyst: | |Authenticated by: JORGE NOVAK MD | [...] + + + + | Calculated P [place] | 42 | degrees | + + + + | Calculated R [place] | 53 | degrees | + + + + | Calculated T [place] | 60 | degrees | + + + + | Diagnosis | Please refer to Providers office visit note | | | | for Providers Interpretation.Confirmed by | | | | [facility] [place] Read Only, PETRA Martino ([id number]), | | | | publications editor Issac Blackburn ([id number]) on 10/16/2017 | | | | 4:56:19 PM | | + + + + + + + | Specimen | Performing Laboratory | + + + | | [facility] [address] [facility] [address] | + + + in this encounter [...]
--- OUTSIDE RECORDS SUMMARY | ~2017-12-30 | XMS | Encounter Summary ---
Demographics + + + | Address | [address] | | | [place] [address] | + + + | Home Phone | | + + + | Preferred Language | Unknown | + + + | Marital Status | Single | + + + | Alevism Affiliation | 1013 | + + + | Race | Unknown | + + + | Ethnic Group | Unknown | + + + Author + + + | Author | [facility] | + + + | Organization | [facility] | + + + | Address | Unknown | + + + | Phone | Unavailable | + + + Support + + + + + | Name | Relationship | Address | Phone | + + + + + | Marianna Ly | ECON | [address] | | | | | [address], [place] | | | | | [address] | | + + + + + Care Team Providers + +------+ + | Care Double End Chucking Machine Operator Name | Role | Phone | + +------+ + | Tahir Hill DINKEY ENGINE FIRER/FIREMAN | PCP | | + +------+ + [...] | | | | | hypertension | SHAFTING WORKER [address] | | | | | | with goal | Mayra Ruby | | | | | | blood | [facility] | | | | | | pressure | [place] | | | | | | less than | [address] | | | | | | [address] | Phone: | | | | | | Hyperlipidem | [phone] | | | | | | ia, | Fax: | | | | | | unspecified | [phone] | | | | | | hyperlipidem [...] | | | Way [address] | [place] [address] | less than [address] | | | | [place] [address] | [phone] | (Primary Dx); | | | | [phone] | | Hyperlipidemia, | | | | [...] you an Echo to be done at [facility] in one year, see me back in one year in this encounter Progress Notes Mattiedolores Domonique ChenNASREEN - 11/27/2017 11:00 AM PDTFormatting of this note may be differen t from the original. Date of visit: 11/27/2017 Primary Care Physician: TAHIR HILL CHIEF COMPLAINT: Chief Complaint Patient presents with Follow-up 2 month - echo STA 10/30/17 HISTORY OF PRESENT ILLNESS: Mr. Joselin Win, [place], is a 57-year-old man who is here [...] and platelet count. His Echo performed at [facility] on October 30, 2017 reported a normal [...] be seen by Dr. Glez at the [facility] sleep lab in January to get evaluation [...] marijuana, crack, mushrooms. Exercises with tasiks in [employer], walking, a nd tolerates. 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 Ascending [...] EK2015: Normal sinus rhythm. Rate 63 bpm, HI 144 ms, QRS 94 ms, QTC 407 ms, perso [place] reviewed by me EK2017: Normal sinus rhythm. Rate 63 bpm, HI 146 ms, QRS 96 ms, QTC 427 [...] which I ordered when I saw him [facility]. His labs performed 10/17/17 showed normal [...] and platelet count. His Echo performed at [facility] on October 30, 2017 reported a normal [...] He will be following up with the [place] sleep lab in January, and hopefully will [...] past surgical history. Problem list. NASREEN Boyer [facility] Cardiology 11/27/2017in this encounter Plan of Treatment +--------+---------+ + + + | Date | Type | Specialty | Care Team | Description | +--------+---------+ + + + | 01/31/ | Office | Pulmonology | Florian Lujan MD | | | 2018 | Visit | | [address] | | | | | | [place] [address] | | | | | | [phone] | | | | | | | [...]
--- OUTSIDE RECORDS SUMMARY | ~2017-12-30 | XMS | Encounter Summary ---
Demographics + + + | Address | [address] | | | [place] [address] | + + + | Home Phone [...] + + + | Author | [facility] | + + + | Organization | [facility] | + + + | Address | Unknown | + + + | Phone | Unavailable | + + + Support + + + + + | Name | Relationship | Address | Phone | + + + + + | Marianna Ly | ECON | [address] | | | | | [address], [place] | | | | | [address] | | + + + + + Care Team Providers + +------+ + | Care Manager Office Name | Role | Phone | + [...] [place] | | | | | | [address] | | | | | | [phone] | | | +--------+ + + + [...] [address] | | | | | | [place] [address] | | | | | | [phone] | | | | | | | | +--------+---------+ + + + as of this encounter Visit Diagnoses Not on filein this encounter"
--- OUTSIDE RECORDS SUMMARY | ~2017-12-30 | XMS | Encounter Summary ---
Demographics + + + | Address | [address] | | | [place] [address] | + + + | Home Phone [...] + + + | Author | [facility] | + + + | Organization | [facility] | + + + | Address | Unknown | + + + | Phone | Unavailable | + + + Support + + + + + | Name | Relationship | Address | Phone | + + + + + | Marianna Ly | ECON | [address] | | | | | [address], [place] | | | | | [address] | | + + + + + Care Team Providers + +------+ + | Care Creative Arts Therapist Name | Role | Phone | + [...] | on Only | Cardiology [place] | RIVET MACHINE OPERATOR | JAMES Hill) | | | | [address] | | | | | | [place] | | | | | | [address] | | | | | | [phone] | | | +--------+ + + + [...] | | | | | [place] [address] | | | | | | [phone] | | | | | | | | +--------+---------+ + + + as of this encounter Visit Diagnoses Not on filein this encounter"
--- OUTSIDE RECORDS SUMMARY | ~2017-12-30 | XMS | Encounter Summary ---
Demographics + + + | Address | [address] | | | [place] [address] | + + + | Home Phone [...] + + + | Author | [facility] | + + + | Organization | [facility] | + + + | Address | Unknown | + + + | Phone | Unavailable | + + + Support + + + + + | Name | Relationship | Address | Phone | + + + + + | Marianna Ly | ECON | [address] | | | | [address], [place] | | | | | [address] | | + + + + + Care Team Providers + +------+ + | Care Mannequin Mold Maker Name | Role | Phone | + +------+ + | Tahir Hill CROP PULLER | PCP | | + +------+ + [...] | | Required | | Essential | PHARMACOVIGILANCE SPECIALIST [address] | Sleep | | | | | hypertension | Mayra Ruby | Disorders | | | | | with goal | John F | [facility] | | | | | blood | [place], [place] | HOSPITAL | | | | | pressure | [address] | [address] | | | | | less than | Phone: | [address] | | | | | [address] | [phone] | [place], [place] | | | | | Chronic | Fax: | [address] | | | | | obstructive | [phone] | Phone: | | | | | pulmonary | | [phone] | | | | | disease, | | Fax: | | | | | unspecified | | [phone] | | | | | COPD type | | | | | | | ([facility]) | | | | | | | [...] | | / Cardiology | (primary) | PHARMACOVIGILANCE SPECIALIST [address] | PHARMACOVIGILANCE SPECIALIST [address] | | | | | hypertension | Mayra Ruby | Mayra Ruby | | | | | f/u | John F | John F | | | | | annual-Vogel | [place], [place] | [place], [place] | | | | | transfer | [address] | [address] Phone: | | | | | Procedures | Phone: | [phone] | | | | | PA OFFICE | [phone] | Fax: | | | | | OUTPATIENT | Fax: | [phone] | | | | | VISIT LEVEL | [phone] | | | | | | 1 [...] | | 2018 | Visit | Cardiology [place] | NASREEN Chen [address] | Dx); Essential | | | | [address] | Mayra Lopez F | hypertension with | | | | Way [address] | [place] [address] | goal blood pressure | | | | [place] [address] | [phone] | less than 130/80; | | | | [phone] | | Hyperlipidemia, | | | | [...] ou fasting labs to be done at [facility] and also ordered you an Echo to be done at [facility] Take Vit b12 again I have ordered refill on Atorvastatin and metoprolol for one year Consider using light compression knee high socks, look like soccer socks to help with varic ose veins I have referred you to Sleep lab at [facility] for sleep apnea evaluation See me [...] of Dr. Lujan on July 2017 wh [facility] documents that his COPD has been well-controlled [...] without it. 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 He also has not had any [...] so I have referred him to the [place] sleep lab for further evaluation of his [...] past surgical history. Problem list. Domonique ArenasNASREEN [facility] Cardiology 10/16/2017in this encounter Plan of Treatment +--------+---------+ + + + | Date | Type | Specialty | Care Team | Description | +--------+---------+ + + + | 01/31/ | Office | Pulmonology | Florian Lujan MD | | | 2017 | Visit | | [address] | | | | | | [place] [address] | | | | | | [phone] | | | | | | | [...] Laboratory | + + + | | [address] [place] [address] | + + + + + | [...] | e': 0.07 m/s Lateral E/e': 7.35 Trailer Driver: Authenticated | | by: JORGE NOVAK MD Report Date/Time: 10-30-2017 17:52:14 | + + + + | Procedure Note | + + | Jayce, Rad Results In - 10/30/2017 6:00 PM PST Patient Name: Abena Win of | | : 1960ccession: [id number] Physician: JORGE NOVAK MD | | INDICATIONS [...] mlLAESV Index (A-L): 24.66 ml/m2LAAs A2C: 15.85 io1BAQKA A-L | | A2C: 42.05 mlLALs A2C: 5.07 cmLAAs A4C: 20.65 gu6ZPTZT A-L A4C: 68.39 mlLALs | | A4C: 5.29 cmRAAs: 16.87 mm9ASZJQ A-L: 44.78 mlRAESV MOD: 45.69 mlRALs: 5.39 | | cmTAPSE: 2.19 cmAV maxP.05 mmHgAV meanP.73 mmHgAV Vmax: 1.32 m/Mariam | | Vmean: 0.90 m/Mariam VTI: 29.89 cmAVA Vmax: 3.41 cm2AVA (VTI): 3.01 ev2PZXD Vmax: | | 0.00 cm2/m2AVAI (VTI): 0.00 cm2/m2LVOT maxP.63 mmHgLVOT meanP.94 mmHgLVSI | | Dopp: 40.60 ml/m2LVSV Dopp: 90.15 mlLVOT Vmax: 1.07 m/sLVOT Vmean: 0.63 m/sLVOT | | VTI: 21.41 cmMV A Porter: 0.37 m/sMV DecT: 232.01 msMV E Porter: 0.58 m/sMV E/A | | Ratio: 1.53 Septal e': 0.08 m/sSeptal E/e': 7.16 Lateral e': 0.07 m/sLateral | | E/e': 7.35 Trailer Driver: Authenticated by: Jean Marie LEMUS Date/Time: 10-30-2017 [...] | |Lateral E/e': 7.35 | | | |Trailer Driver: | |Authenticated by: JORGE NOVAK MD | [...] + + + + | Calculated P [place] | 42 | degrees | + + + + | Calculated R [place] | 53 | degrees | + + + + | Calculated T [place] | 60 | degrees | + + + + | Diagnosis | Please refer to Providers office visit note | | | | for Providers Interpretation.Confirmed by | | | | [facility] [place] Read Only, PETRA Martino ([id number]), | | | | city editor Issac Blackburn ([id number]) on 10/16/2017 | | | | 4:56:19 PM | | + + + + + + + | Specimen | Performing Laboratory | + + + | | [facility] [address] [facility] [address] | + + + in this encounter [...]
--- OUTSIDE RECORDS SUMMARY | ~2017-12-30 | XMS | Encounter Summary ---
Demographics + + + | Address | [address] | | | [place] [address] | + + + | Home Phone | | + + + | Preferred Language | Unknown | + + + | Marital Status | Single | + + + | Congregational Affiliation | 1013 | + + + | Race | Unknown | + + + | Ethnic Group | Unknown | + + + Author + + + | Author | [facility] | + + + | Organization | [facility] | + + + | Address | Unknown | + + + | Phone | Unavailable | + + + Support + + + + + | Name | Relationship | Address | Phone | + + + + + | Marianna Ly | ECON | [address] | | | | | [address], [place] | | | | | [address] | | + + + + + Care Team Providers + +------+ + | Care Food Service Clerk Name | Role | Phone | [...] | on Only | Cardiology [place] | CONCAVING MACHINE OPERATOR | JAMES Hill) | | | | [address] | | | | | | [place] | | | | | | [address] | | | | | | [phone] | | | +--------+ + + + [...] | | | | | [place] [address] | | | | | | [phone] | | | | | | | | +--------+---------+ + + + as of this encounter Visit Diagnoses Not on filein this encounter"
--- OUTSIDE RECORDS SUMMARY | ~2017-12-30 | XMS | Clinical Summary ---
Demographics + + + | Address | [address] | | | [place] [address] | + + + | Home Phone | | + + + | Preferred Language | Unknown | + + + | Marital Status | Single | + + + | Druze Affiliation | 1013 | + + + | Race | Unknown | + + + | Ethnic Group | Unknown | + + + Author + + + | Author | [employer] | + + + | Organization | [employer] | + + + | Address | Unknown | + + + | Phone | Unavailable | + + + Support + + + + + | Name | Relationship | Address | Phone | + + + + + | Marianna Ly | ECON | [address] | | | | [address], [place] | | | | | [address] | | + + + + + Care Team Providers + +------+ + | Care Surface Plate Inspector Name | Role | Phone | [...] | 2018 | on Only | | EMAIL CAMPAIGN SPECIALIST | JAMES Hill) | +--------+ + + + + | 11/01/ | Documentati | | Adelina Chairez, | Other ([facility] | | 2017 | on Only | | EMAIL CAMPAIGN SPECIALIST | Clinic, Pulmonary | | | [...] | | | | | | type ([facility]); | | | | | | Thoracoabdominal [...] | | | 2017 | | | EMAIL CAMPAIGN SPECIALIST | | +--------+ + + + [...] [address] | | | | | | [place] [address] | | | | | | [phone] | | | | | | | [...] Laboratory | + + + | | [address] [place] [address] | + + + + + | [...] | e': 0.07 m/s Lateral E/e': 7.35 Aws Software Development Engineer: Authenticated | | by: JORGE NOVAK MD Report Date/Time: 10-30-2017 17:52:14 | + + + + | Procedure Note | + + | Jayce, Rad Results In - 10/30/2017 6:00 PM PST Patient Name: Abena Win of | | : 1960ccession: [id number] Physician: JORGE NOVAK MD | | INDICATIONS [...] mlLAESV Index (A-L): 24.66 ml/m2LAAs A2C: 15.85 [id number] A-L | | A2C: 42.05 mlLALs A2C: 5.07 cmLAAs A4C: 20.65 [id number] A-L A4C: 68.39 mlLALs | | A4C: 5.29 cmRAAs: 16.87 [id number] A-L: 44.78 mlRAESV MOD: 45.69 mlRALs: 5.39 | | cmTAPSE: 2.19 cmAV maxP.05 mmHgAV meanP.73 mmHgAV Vmax: 1.32 m/Mariam | | Vmean: 0.90 m/Mariam VTI: 29.89 cmAVA Vmax: 3.41 cm2AVA (VTI): 3.01 [id number] Vmax: | | 0.00 cm2/m2AVAI (VTI): 0.00 cm2/m2LVOT maxP.63 mmHgLVOT meanP.94 mmHgLVSI | | Dopp: 40.60 ml/m2LVSV Dopp: 90.15 mlLVOT Vmax: 1.07 m/sLVOT Vmean: 0.63 m/sLVOT | | VTI: 21.41 cmMV A Porter: 0.37 m/sMV DecT: 232.01 msMV E Porter: 0.58 m/sMV E/A | | Ratio: 1.53 Septal e': 0.08 m/sSeptal E/e': 7.16 Lateral e': 0.07 m/sLateral | | E/e': 7.35 Aws Software Development Engineer: Authenticated by: Jean Marie LEMUS Date/Time: [...] | |Lateral E/e': 7.35 | | | |Aws Software Development Engineer: | |Authenticated by: JORGE NOVAK MD [...] + | Blood | [facility] [address] | | | [address] | + + + Transferrin (10/17/2017 7:42 AM) + +--------+ + | Component | Value | Ref Range | + +--------+ + | TRANSFERRIN | 245.11 | 180 - 329 | + +--------+ + + + + | Specimen | Performing Laboratory | + + + | Blood | [facility] [address] | | | [address] | + + + Ferritin (10/17/2017 7:42 AM) + +-------+ + | Component | Value | Ref Range | + +-------+ + | FERRITIN | 162.8 | 30 - 400 ng/mL | + +-------+ + + + + | Specimen | Performing Laboratory | + + + | Blood | [facility] [address] [place], [facility] [address] [place], [place] | | | [address] | + + + Lipid panel (10/17/2017 [...] | + + + | Blood | [facility] [address] [place] [address] [facility] [address] [place], [place] | | | [address] | + + + Comprehensive metabolic panel [...] + | Blood | [facility] [address] [place] | | | [address] | + + + CBC W/Auto Diff [...] | + + + | Blood | [facility] [address] [place] [address], [place] | | | [address] | + + + EKG STANDARD 12 [...] + + + + | Calculated P Franklin | 42 | degrees | + + + + | Calculated R Franklin | 53 | degrees | + + + + | Calculated T Franklin | 60 | degrees | + + + + | Diagnosis | Please refer to Providers office visit note | | | | for Providers Interpretation.Confirmed by | | | | [facility] Read Only, PETRA Martino ([id number]), | | | | online editor Issac Blackburn ([id number]) on 10/16/2017 | | | | 4:56:19 PM | | + + + + + + + | Specimen | Performing Laboratory | + + + | | [facility] [address] [address] | + + + from Last 3 [...] | | [place] | | | | [address] | | | TRANSFORMER MECHANIC | | | | | + +--------+ [...] | emma | | | [address] | [address] | + +--------+ +--------+ + +
--- OUTSIDE RECORDS SUMMARY | ~2017-12-30 | XMS | Encounter Summary ---
Demographics + + + | Address | [address] | | | [place] [address] | + + + | Home Phone | | + + + | Preferred Language | Unknown | + + + | Marital Status | Single | + + + | Restorationist Affiliation | 1013 | + + + | Race | Unknown | + + + | Ethnic Group | Unknown | + + + Author + + + | Author | [employer] | + + + | Organization | [employer] | + + + | Address | Unknown | + + + | Phone | Unavailable | + + + Support + + + + + | Name | Relationship | Address | Phone | + + + + + | Marianna Ly | ECON | [address] | | | | | [address], [place] | | | | | [address] | | + + + + + Care Team Providers + +------+ + | Care Industrial Machinery Mechanic Name | Role | Phone | + [...] hypertension with | | | | | [place] [address] | goal blood pressure | | | | | [phone] | less than 130/80; | | | [...] [address] | | | | | | [place] [address] | | | | | | [phone] | | | | | | | [...] Laboratory | + + + | | [address] [address] | + + + + + | [...] | e': 0.07 m/s Lateral E/e': 7.35 Traveling Sales Representative: Authenticated | | by: JORGE NOVAK MD Report Date/Time: 10-30-2017 17:52:14 | + + + + | Procedure Note | + + | Jayce, Rad Results In - 10/30/2017 6:00 PM PST Patient Name: Abena Win of | | : 1960ccession: [id number] Physician: JORGE NOVAK MD | | INDICATIONS [...] mlLAESV Index (A-L): 24.66 ml/m2LAAs A2C: 15.85 [id number] A-L | | A2C: 42.05 mlLALs A2C: 5.07 cmLAAs A4C: 20.65 [id number] A-L A4C: 68.39 mlLALs | | A4C: 5.29 cmRAAs: 16.87 [id number] A-L: 44.78 mlRAESV MOD: 45.69 mlRALs: 5.39 | | cmTAPSE: 2.19 cmAV maxP.05 mmHgAV meanP.73 mmHgAV Vmax: 1.32 m/Mariam | | Vmean: 0.90 m/Mariam VTI: 29.89 cmAVA Vmax: 3.41 cm2AVA (VTI): 3.01 [id number] Vmax: | | 0.00 cm2/m2AVAI (VTI): 0.00 cm2/m2LVOT maxP.63 mmHgLVOT meanP.94 mmHgLVSI | | Dopp: 40.60 ml/m2LVSV Dopp: 90.15 mlLVOT Vmax: 1.07 m/sLVOT Vmean: 0.63 m/sLVOT | | VTI: 21.41 cmMV A Porter: 0.37 m/sMV DecT: 232.01 msMV E Porter: 0.58 m/sMV E/A | | Ratio: 1.53 Septal e': 0.08 m/sSeptal E/e': 7.16 Lateral e': 0.07 m/sLateral | | E/e': 7.35 Traveling Sales Representative: Authenticated by: Jean Marie LEMUS Date/Time: 10-30-2017 [...] | |Lateral E/e': 7.35 | | | |Traveling Sales Representative: | |Authenticated by: JORGE NOVAK MD | [...]
--- OUTSIDE RECORDS SUMMARY | ~2017-12-30 | XMS | Clinical Summary ---
Demographics + + + | Address | [address] | | | [place] [address] | + + + | Home Phone | | + + + | Preferred Language | Unknown | + + + | Marital Status | | + + + | Baptism Affiliation | 1013 | + + + | Race | Unknown | + + + | Ethnic Group | Unknown | + + + Author + + + | Author | [facility] | | | and [place] | + + + | Organization | [facility] | | | [...] [address], [place] | | | | | [address] | | + + + + + Care Team Providers + +------+ + | Care Child Specialist Name | Role | Phone | [...] | | | | | ([facility]) | | | | | | [...] | 1/20 | | e | | ([facility]) | | | | 16 | [...] + + + + + | Overview: [facility] | + + + +---+ [...] | MODA | xxxxxxxx | Medica | +[phone] | | | MEDICAID HMO | HEALTH [...] emma | | | [address] | [place] [address] | + +--------+ +--------+ + +
--- OUTSIDE RECORDS SUMMARY | ~2017-12-30 | XMS | Clinical Summary ---
Demographics + + + | Address | [address] | | | [place] [address] | + + + | Home Phone | | + + + | Preferred Language | Unknown | + + + | Marital Status | | + + + | Synagogue Affiliation | 1013 | + + + | Race | Unknown | + + + | Ethnic Group | Unknown | + + + Author + + + | Author | [facility] | | | and [place] | + + + | Organization | [facility] | | | [...] [address], [place] | | | | | [address] | | + + + + + Care Team Providers + +------+ + | Care Undergraduate Internship Name | Role | Phone | + [...] | | | | | | | ([facility]) | | | | | [...] | 1/20 | | e | | ([facility]) | | | | 16 [...] + + + + + | Overview: [facility] | + + + +---+ [...] | MODA | xxxxxxxx | Medica | +[phone] | | | MEDICAID HMO | HEALTH [...] emma | | | [address] | [place] [address] | + +--------+ +--------+ + +
--- OUTSIDE RECORDS SUMMARY | ~2017-12-30 | XMS | Encounter Summary ---
Demographics + + + | Address | [address] | | | [place] [address] | + + + | Home Phone [...] + + + | Author | [employer] | + + + | Organization | [facility] | + + + | Address | Unknown | + + + | Phone | Unavailable | + + + Support + + + + + | Name | Relationship | Address | Phone | + + + + + | Marianna Ly | ECON | [address] | | | | [address], [place] | | | | | [address] | | + + + + + Care Team Providers + +------+ + | Care Tire Manager Name | Role | Phone | + +------+ + | [place]ir [place] | PCP | | + +------+ + Reason for Visit +--------+ + | Reason | Comments | +--------+ + | Other | [facility], Pulmonary Function Test | +--------+ + Encounter Details +--------+ + + + + | Date | Type | Department | Care Team | Description | +--------+ + + + + | 11/01/ | Documentati | [facility] | Adelina Chairez, | Other ([facility] [place] | | 2018 | on Only | [facility] [place] | [facility] | Clinic, Pulmonary | | | | [address] | | Function Test) | | | | [place] | | | | | | [address] | | | | | | [phone] | | | +--------+ + + + [...] [address] | | | | | | [place] [address] | | | | | | [phone] | | | | | | | | +--------+---------+ + + + as of this encounter Visit Diagnoses Not on filein this encounter"
[~2017-12-30 11:31] MED LIST changes: +ACETAMINOPHEN650 M1 PO; +ADVAIR 500-501 EACH INH; +DICLOFENAC SODI50 MG PO; +DILAUDID4 MG PO; +FLOMAX0.4 MG PO; +HYDROCHLOROTH12.5 MG PO; +INCRUSE ELLI62.5 MCG INH; +LIPITOR40 MG PO; +NORVASC5 MG PO; +OXYCODONE HCL10 MG PO; +PROTONIX40 MG PO; +RA CENTRAL-VIT1 EAC8 PO; +VITAMIN B-1100 MG PO; +XARELTO10 MG PO
--- NOTE | 2017-12-30 15:59 | NUR ---
MED REC COMPLETE FROM PREVIOUS ADMISSIOON/ DISCHARGE ON 12/28
--- NOTE | 2017-12-30 16:00 | NUR ---
PT RECEIVED FROM ED. PT TRANSFERED SELF TO BED. PT ON ROOM AIR, LUNG SOUNDS CLEAR, DENIES SOB. PT DENIES CHEST PAIN. PT WITH PAIN TO RIGHT HIP, REQUESTING PAIN MEDICATION. REDNESS TO RIGHT LEG FROM HIP TO MID CALF, HOT TO THE TOUCH. CMS INTACT, WITHOUT PITTING EDEMA, PULSES PALPABLE. PT DENIES NAUSEA, BOWEL TONES ACTIVE. PT ASSISTED TO BATHROOM AND BACK TO BED, VOIDING WIHTOUT DIFFICULTY. IV INFUSING VANCO FROM ED. MD CALLED FOR ORDERS, ORDER TO CONTIUE OXYCODONE 10 MG Q4P, XARELTO 10 MG DAILY, TYLENOL 650 MG Q6H, PHARMACY TO DOSE VANCO, REGULAR DIET, PT/OT, AND PT MAY SHOWER, RBVO. 10 MG PO OXYCODONE GIVEN. WATER PROVIDED. MED REC AND ADMISSION INTAKLE COMPLETED. PT DENIES OTHER NEEDS AT THIS TIME.
--- NOTE | 2017-12-30 17:25 | NUR ---
PT RESTING IN BED. IV VANCO INFUSING. PT DENIES OTHER NEEDS AT THIS TIME.
--- NOTE | 2017-12-30 18:12 | NUR ---
PT ADMITTED AT 1550 FOR CELLULITIS TO RIGHT LEG. PT HAD RIGHT HIP SURGERY ON 12/26. PT ON ROOM AIR. PT WITH PAIN 02/25, GIVEN 10 MG PO OXYCODONE. PT WITH REDNESS FROM HIP TO MID CALF, WARM TO THE TOUCH, GENERALIZED SWELLING. PT WITH SURGICAL INCISON, SURGICAL TAPE IN PLACE, EDGES WELL APPROXIMATED. PT UP WITH 1PA WITH FWW. VOIDING QS.
--- NOTE | 2017-12-30 19:10 | NUR ---
RECEIVED REPORT FROM RN. PATIENT RESTING IN BED, BREATHING IS EVEN AND UNLABORED. REPORTS 4/10 PAIN IN RIGHT LEG. DENIES NEEDS AT THIS TIME. CALL LIGHT WITHIN REACH.
--- NOTE | 2017-12-30 20:10 | NUR ---
ROUNDED CHARGE. PATIENT IS RESTING IN BED. PATIENT DENIES ANY PAIN. NO NEEDS NOTED AT THIS TIME. CALL LIGTH IN REACH.
--- NOTE | 2017-12-30 21:30 | NUR ---
PATIENT RESTING IN BED, APPEARS TO BE IN DISCOMFORT. PATIENT REPORTS 8/10 PAIN IN RIGHT LEG. PRN OXYCODONE GIVEN. SCHEDULED MEDICATIONS ALSO GIVEN. PATIENT THEN REPORTS NAUSEA, PRN ZOFRAN ADMINISTERED. ASSISTED TO BATHROOM WITH 1PA/FWW. PATIENT CONTINUES TO BE IN HIGH AMOUNTS OF PAIN, PATIENT GRUNTING, GRIMACING, AND HOLDING BREATH, AMBULATION IS DIFFICULT FOR PATIENT DUE TO PAIN. PRN IV MORPHINE GIVEN ONCE PATIENT BACK IN BED. ALSO GAVE ICE PACK FOR INCISION SITE. PATIENT STATES "THAT SHOULD HELP, I THINK I AM STARTING TO FEEL BETTER." DENIES FURTHER NEEDS. CALL LIGHT WITHIN REACH.
--- NOTE | 2017-12-30 21:45 | NUR ---
PATIENT GIVEN EYE MASK AND EAR PLUGS TO ASSIST WITH SLEEP. PATIENT DENIES FURTHER NEEDS. CALL LIGHT WITHIN REACH.
--- NOTE | 2017-12-30 23:40 | NUR ---
PATIENT RESTING IN BED, BREATHING IS EVEN AND UNLABORED. FLACC SCORE OF 0. CALL LIGHT WITHIN REACH.
--- NOTE | 2017-12-31 02:44 | NUR ---
PATIENT ASSISTED TO BATHROOM WITH 1PA/FWW. TOLERATED WELL, GAIT REMAINS UNSTEADY, IMPROVING. PATIENT STATES THAT IT IS PAINFUL FOR HIM TO WALK. NOW RESTING IN BED AGAIN, BREATHING IS EVEN AND UNLABORED. REPORTS 5/10 PAIN IN RIGHT LEG, PRN OXYCODONE GIVEN AND SCHEDULED TYLENOL. GIVEN. DENIES FURTHER NEEDS. ASSESSMENT DONE. CALL LIGHT WITHIN REACH.
--- NOTE | 2017-12-31 05:00 | NUR ---
PATIENT RESTING IN BED, BREATHING IS EVEN AND UNLABORED. FLACC SCORE OF 0. CALL LIGHT WITHIN REACH.
--- NOTE | 2017-12-31 05:32 | NUR ---
PATIENT'S NIGHT WAS UNEVENTFUL. HE HAS BEEN RESTING THROUGHOUT SHIFT. VSS, URINE OUTPUT QS. PAIN WELL CONTROLLED. NO WORSENING OF ERYTHEMA OF RIGHT LEG, TRACE SWELLING NOTICED IN EXTREMITY, MILDLY WARM TO TOUCH. INCISION FROM RECENT HIP SURGERY CDI. PATIENT HAS INCREASED PAIN WITH AMBULATION, 1PA/FWW, GAIT IS MILDLY UNSTEADY. IV IN RIGHT HAND HAS IV FLUIDS INFUSING. NO ACUTE CHANGES FROM BEGINNING OF SHIFT.
--- NOTE | 2017-12-31 06:30 | NUR ---
PATIENT REPORTS 4/10 PAIN IN RIGHT LEG, PRN OXYCODONE GIVEN PER EMAR. DENIES FURTHER NEEDS. PATIENT STATES "I SLEPT WELL LAST NIGHT." CALL LIGHT WITHIN REACH.
--- NOTE | 2017-12-31 07:23 | NUR ---
BEDSIDE HANDOFF REPORT RECEIVED FROM ANESTHESIA ASSISTANT RN. PT SLEEPING, LEFT UNDISTURBED.
--- NOTE | 2017-12-31 08:28 | NUR ---
PATEINT NEEDED TO USE THE RESTROOM, I HELPED HIM 1PA WITH FWW AND GOT HIM PUT IN HIS CHAIR AND READY TO GET HIS BREAKFAST WHEN IT IS DELIEVERED. I ALSO AM BRING ING HIM SOME FRESH ICE WATER
--- NOTE | 2017-12-31 08:45 | NUR ---
PT SITTING IN CHAIR. PT RATING PAIN 5/10 AT THIS TIME, STATES PAIN TOLERABLE AT THIS TIME. IV INFUSING AT 100 ML/HR. PT ON ROOM AIR, LUNG SOUNDS CLEAR. REDNESS TO RIGHT LEG IMPROVED FROM YESTERDAY, CONTINUES ROSALVA WARM TO THE TOUCH, INCISION WITH SURGICAL TAPE INTACT, EDGES WELL APPROXIMATED. PT WITH EDEMA TO BLE, 1+, PULSES PALPABLE. BOWEL TONES ACTIVE, DENIES NAUSEA, TOLERATING REGULAR DIET. SKIING TEACHER TO BEDSIDE FOR NEBS. PT DENIES OTHER NEEDS AT THIS TIME. DISCUSSED PLAN OF CARE FOR THE DAY.
--- NOTE | 2017-12-31 10:07 | NUR ---
SET PATIENT UP TO TAKE A SHOWER RIGHT NOW HE HAS A VISITOR. HE IS ALSO SITTING UP IN HIS CHAIR.
--- NOTE | 2017-12-31 10:44 | NUR ---
PT SITTING IN CHAIR. BROTHER AT BEDSIDE. PT DENIES NEEDS AT THIS TIME.
--- NOTE | 2017-12-31 11:23 | NUR ---
PT WORKING WITH PHYSICAL THERAPSIT, AMBULATING IN LOU.
--- NOTE | 2017-12-31 12:30 | NUR ---
PT REQUESTING PAIN MEDICATION. PT PROVIDED WITH 10 MG PO OXYCODONE. PT SITTING IN CHAIR. COMPLETED SHOWER WITH NURSE AIDE. RIGHT LEG REDNESS IMPROVING. PT ON ROOM AIR, LUNG SOUNDS CLEAR. PT DENIES OTHER NEEDS AT THIS TIME. LUNCH AT BEDSIDE.
--- NOTE | 2017-12-31 12:43 | NUR ---
AFTER PATIENT ATE LUNCH HELPED HIM GET IN THE SHOWER PATIENT SHOWERED HIMSELF. TOLD HIM IF HE NEEDED ANY HELP TO PULL THE CALL LIGHT IN THE BATHROOM. WENT BACK A FEW MINUTES LATER TO SEE IF HE WAS DONE. HE WAS DONE THAN I HANDED HIM THE TOWELS AND GOWN TO GET DRESSED AND HELPED HIM PUT ON HIS SOCKS. NOW HE IS SITTING UP IN HIS CHAIR WATCHING TV.
--- NOTE | 2017-12-31 13:40 | NUR ---
LAB TO BEDSIDE TO DRAW VANCO TROUGH. UNABEL TO DRAW. ATTEMPTED TO DRAW FROM RIGHT HAND IV, IV PAINFUL TO FLUSH, UNABLE TO GET BLOOD RETURN. ATTEMPTED TO START NEW IV TO RIGHT AC, ABLE TO DRAW LABS, UNABLE TO ADVANCE CATHETER. SECOND ATTEMPT TO LEFT ARM, UNABLE TO OBTAIN ACCESS. SUPERVISOR SHED WORKERS ASKED TO BEGIN IV. PT SITTING IN CHAIR. PT DENIES OTHER NEEDS AT THIS TIME.
--- NOTE | 2017-12-31 16:15 | NUR ---
PT REQUESTIGN PAIN MEDICATION. RATIGN PAIN 5-02/25. GIVN 10 MG PO OXYCODONE. PT ENCOURAGED TO AMBULATE IN LOU, UP WITH 1PA WITH FWW.
--- NOTE | 2017-12-31 16:27 | NUR ---
PT WITHOUT IV ACCESS. UNABLE TO OBTAINIV ACCESS. RN TO COME ESTABLISH ACCESS WITH ULTRASOUND. LEXIE SIERRA ON [facility].
--- NOTE | 2017-12-31 17:15 | NUR ---
UNABLE TO OBTAIN IV ACCESS. DR. BENTON NOTIFIED. ORDER TO HOLD ON IV VANCO UNTIL DR. BENTON COMES TO EVALUATE PT. PT UPDATED.
--- NOTE | 2017-12-31 18:12 | NUR ---
PT LOST IV ACCESS THIS AFTERNOON, UNABLE TO OBTAIN IV ACCESS, AWAITING DR. BENTON TO EVALUATE PT. PT ON ROOM AIR, LUNG SOUNDS CLEAR, SCHEDULED NEBS. PT WALKED IN LOU WITH PHYSICAL THERAPY AND NURSE AIDE. PT SHOWERED. PT RECEIVING PRN OXYCODONE AND TYLENOL, CONTINUED TO HAVE PAIN THIS EVENING. PT VOIDING QS. LAST BM 12/29, MILK OF MAG STARTED TODAY. [facility] TROUGH 13.2.
--- NOTE | 2017-12-31 18:28 | HP ---
[facility] [address] [place], [place] [address] Signed ADMISSION DATE: 12/30/2017 HISTORY OF PRESENT ILLNESS: Mr. Win is a 57-year-old white male, who had a total hip arthroplasty 4-1/2 days ago. He was discharged 2 days ago, doing well. He apparently returned to the emergency room today because of some concerns about some redness in his right leg. He was seen in the emergency room where he really had the redness from his ankle all the way up to his hip area. Interestingly, exactly in the portion of the leg that would be in contact with the bedding when he was in the supine position. They were concerned about some possible cellulitis and wanted him admitted for IV antibiotics and observation. PAST MEDICAL HISTORY: Otherwise unremarkable. He said he has not had any fevers, has not had any chills. No other systemic symptoms. MEDICATIONS: Noted in the nursing intake form. They indicates he is sensitive to aspirin and has difficulties with the trazodone. REVIEW OF SYSTEMS: Again, he has no systemic symptoms of any kind. He says he feels fine. He just came in to get his leg checked. PHYSICAL EXAMINATION: GENERAL: He is a pleasant gregarious gentleman, in excellent spirits. There is certainly no suggestion of any toxicity. He is alert, oriented, in no acute distress. HEAD, EARS, EYES, NOSE, AND THROAT: Unremarkable. NECK: Supple. CHEST: Clear. CARDIAC: Reveals a regular rhythm. ABDOMEN: Benign. EXTREMITIES: His right leg does have an erythematous, slightly warm area that really begins just about the iliac crest on the right and extends all the way down to his ankle on the posterior lateral aspect. His dressing has been removed. His incision looks fine. There is no particular redness about the incision. There is no induration. There is no drainage. Range of motion of hip is painless. His neurovascular exam is unremarkable. His calves are negative. His neurovascular exam is unremarkable as well. LABORATORY DATA: Electronically Signed By: MIRIAM BENTON MD 12/31/17 1828 PATIENT NAME: BEVERLEY WIN HISTORY AND PHYSICAL DATE OF : 64 REPORT #: [id number] PHYSICIAN: MIRIAM BENTON MD PCP: RAFAELA MAHAN REPORT IS CONFIDENTIAL AND NOT TO BE RELEASED WITHOUT AUTHORIZATION [facility] [address] [place], [place] [address] Signed A series of labs were drawn in the emergency room and they were all completely unremarkable except for mildly elevated glucose at 126 and a mildly increased white blood count, although he appears to have a predominance of lymphocytes. IMPRESSION: Erythema over the lateral aspect of his calf and thigh. The distribution to me is more suggestive of a contact dermatitis. We will go ahead and have him continue on the vancomycin that was started in the emergency room. We will check his progress over the next 24 hours. Because of his multitude of medical issues, we will ask the hospitalist to consult for medical comanagement. MD JENNIFER CarrollB/ANITHAL /[id number] Copies: ~ Electronically Signed By: MIRIAM BENTON MD 12/31/17 1828 PATIENT NAME: BEVERLEY WIN HISTORY AND PHYSICAL DATE OF : 64 REPORT #: [id number] PHYSICIAN: MIRIAM BENTON MD PCP: RAFAELA MAHAN REPORT IS CONFIDENTIAL AND NOT TO BE RELEASED WITHOUT AUTHORIZATION
--- NOTE | 2017-12-31 18:44 | NUR ---
TOOK PATIENT'S IV OUT AROUND 1750.
--- NOTE | 2017-12-31 19:30 | NUR ---
AWAKE, NO C/O PAIN, WATCHING TV
--- NOTE | 2017-12-31 21:26 | NUR ---
cooperative with assessment. Up to brp with fww and sba, voided, back to bed, tolerated well. R Hip incision healing, pink, edges well approximated, scab in place, cellulitis of r leg present, skin firmer r lateral side. good pulse. Lungs with insp crackes bilat and dim bases, on room air, just completed a neb tx. Denies sob, no sob with exertion. Medicated with scheduled Tylenol and Oxycodone 10mg po per 03/27 r hip/leg pain. Cooperative, follows instructions well, watching tv
--- NOTE | 2018-01-01 01:01 | NUR ---
resting, no distress. hob elevated,
--- NOTE | 2018-01-01 01:24 | NUR ---
Pt up to brp, voided dark yellow urine. back to bed, Requires 1sba and fww. Medictaed with 2-4mg Dilaudid po per 7/10 r hip/leg pain. Back to bed.
--- NOTE | 2018-01-01 01:33 | NUR ---
In bed awake, turns self in bed, Tele#[address], trying to get tele off and pulling iv, reoriented, leads back on.
--- NOTE | 2018-01-01 02:41 | NUR ---
pt awakens easily, received scheduled Tylenol 650mg. no other erquests. R leg 4/10 pain, cellulitis w/o changes
--- NOTE | 2018-01-01 06:43 | NUR ---
Decreased edema and redness of R leg noted. Pt up to brp using 1SBA and FWW. voided yellow urine 800cc, no bm. Back to bed, toleratd well. No c/o pain at this time, RH incision scabbed over, dry, healing well, edgees well approx. Fresh water and juice given on request.
--- NOTE | 2018-01-01 07:35 | NUR ---
PATIENT SITTING STRAIGHT UP IN BED EATING BREAKFAST. NO OTHER NEEDS AT THIS TIME. CALL BUTTON IN REACH.
--- NOTE | 2018-01-01 07:39 | NUR ---
PT SITTING UP IN BED, EATING BREAKFAST. HELD HYDROCHLOROTHIAZIDE DUE TO BP 103/86, WHICH IS LOWER THAN VS PARAMETERS. PT REPORTED PAIN TO RIGHT LEG 12/26, STATED THIS IS A TOLERABLE LEVEL FOR HIM. RIGHT LEG SLIGHTLY REDDENED FROM HIP TO ANKLE, PT REPORTS AREA FEELS LESS TENDER, LOOKS LESS REDDENED, AND FEELS LESS TIGHT. PT DENIES NEEDS AT THIS TIME. PERSONAL SUPPLIES IN REACH.
--- NOTE | 2018-01-01 08:45 | NUR ---
PATIENT UP TO BATHROOM AND BACK TO CHAIR WITH FWW STAND BY ASSIST. HANDS AND FACE WASHED. CALL BUTTON IN REACH. PATIENT WOULD LIKE TO SHOWER AT SOMETIME TODAY. NO OTHER NEEDS AT THIS TIME.
--- NOTE | 2018-01-01 09:34 | NUR ---
PT WORKING WITH PHYSICAL THERAPYCHIKA. IS UP AMBULATING IN HALLS WITH FWW WITH STANDBY ASSIST, TOLERATING WELL.
--- NOTE | 2018-01-01 09:48 | NUR ---
FOLLOWING AMBULATION AND WORKING WITH PHYSICAL THERAPY, PT BACK TO ROOM, UP IN RECLINER. PROVIDED PT WITH ICE PACK FOR RIGHT HIP, WELL OXYCODONE 10 MG PO PRN C/O 6/10 PAIN TO RIGHT LEG/HIP. PERSONAL SUPPLIES AND CALL LIGHT IN REACH.
--- NOTE | 2018-01-01 10:14 | NUR ---
PATIENT UP IN CHAIR TALKING ON CELL PHONE. FRESH ICE WATER GIVEN. PATIENT STATES THAT HE WOULD LIKE. TO SHOWER AFTER LUNCH TODAY. CALL BUTTON IN REACH. NO OTHER NEEEDS AT THIS TIME.
--- NOTE | 2018-01-01 11:45 | NUR ---
PATIENT SITTING UP IN CHAIR EATING BREAKFAST. CALL BUTTON IN REACH. NO OTHER NEEDS AT THIS TIME.
--- NOTE | 2018-01-01 11:46 | NUR ---
PT WAS DC'D LAST WEEK, AND WAS READMITTED FOR CELLULITIS. PT'S ALAN HEWITT IS HERE TO HELP FROM [facility]. HE IS PLANNING ON MOVING UP, SO THEY CAN LOOK AFTER EACH OTHER. DISCUSSED WITH PT ABOUT SITTING WITH LEG ELEVATED. HE ADMITTED THAT HE WAS NOT DOING THIS AT HOME, BUT REALIZES NOW THE REAL IMPORTANCE OF THIS. GOOD VISIT WITH BOTH, SEEMS THEY HAVE A STRONG VARGAS, EXTENDED A BLESSING TO BOTH, WILL FOLLOW NEEDED
--- NOTE | 2018-01-01 12:13 | NUR ---
VISITOR IN ROOM TO VISIT WITH PATIENT.
--- NOTE | 2018-01-01 13:11 | NUR ---
PATIENT UP TO SHOWER WITH STAND BY ASSIST WITH FWW.
--- NOTE | 2018-01-01 13:32 | NUR ---
PT SITTING UP IN RECLINER. C/O 5/10 PAIN TO RIGHT HIP, DULL STABBING PAIN. GAVE SCHEDULED ACETAMINOPHEN, WELL DILAUDID 8 MG PO PRN. PT DENIED OTHER NEEDS. PERSONAL SUPPLIES AND CALL LIGHT IN REACH.
[2018-01-01] MEDS ORDERED: BACTRIM DS TAB1 EACH PO (14:39)
--- NOTE | 2018-01-04 08:48 | DS ---
[facility] [address] [place], [place] [address] Signed ADMISSION DATE: 12/30/2017 DISCHARGE DATE: 01/01/2018 FINAL DIAGNOSIS: Rash right leg, questionable cellulitis right leg, postop. No procedures were performed. HISTORY OF PRESENT ILLNESS: The patient is a 57-year-old white male, who presented to the ER approximately 24 hours following his discharge following the total hip arthroplasty on the right with the redness over the entire right leg. There was no fever. There were no chills. There were no systemic symptoms. 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 HOSPITAL COURSE: The redness are rapidly resolved. Today, he is independently ambulatory for an excess of 350 feet. He does stairs well. His incision is clean and dry. The redness is resolved, although he still has sort of a global swelling throughout the extremity. Duplex venous studies were unremarkable for DVT. I am discharging to home and keep him on Bactrim for an additional 10 days. We will have him follow up as previously scheduled for his total hip arthroplasty followup. He will continue with total hip protocols. When he went home just a couple days ago, he was sent home with OxyIR Dilaudid, and we will have him continue taking his Xarelto 10 mg one once a day for DVT prophylaxis. MD URSULA Carroll/FREDDIE /[id number] Copies: Electronically Signed By: MIRIAM BENTON MD 01/04/18 0848 PATIENT NAME: BEVERLEY VAZQUEZ DISCHARGE SUMMARY DATE OF : 64 REPORT #: [id number] PHYSICIAN: MIRIAM BENTON MD PCP: RAFAELA MAHAN REPORT IS CONFIDENTIAL AND NOT TO BE RELEASED WITHOUT AUTHORIZATION [address] [place] [address] Signed ~ Electronically Signed By: MIRIAM BENTON MD 01/04/18 08 PATIENT NAME: BEVERLEY VAZQUEZ DISCHARGE SUMMARY DATE OF : 64 REPORT #: [id number] PHYSICIAN: MIRIAM BENTON MD PCP: RAFAELA MAHAN REPORT IS CONFIDENTIAL AND NOT TO BE RELEASED WITHOUT AUTHORIZATION
== END 2018-01-01 15:45 | disposition home or self-care (01) | DRG 863 ==
LOC: ED 11:31 → MS 15:00
PROVIDERS: ADMIT Orthopaedic Surgery
DX: T81.4XXA Infection following a procedure, initial encounter (principal); L03.115 Cellulitis of right lower limb; Z96.641 Presence of right artificial hip joint; I10 Essential (primary) hypertension; J44.9 Chronic obstructive pulmonary disease, unspecified; K21.9 Gastro-esophageal reflux disease without esophagitis; F10.21 Alcohol dependence, in remission; Z87.891 Personal history of nicotine dependence; N40.0 Benign prostatic hyperplasia without lower urinary tract symptoms; E78.5 Hyperlipidemia, unspecified; Z79.899 Other long term (current) drug therapy; F32.9 Major depressive disorder, single episode, unspecified; F41.9 Anxiety disorder, unspecified; G89.4 Chronic pain syndrome; Z86.14 Personal history of Methicillin resistant Staphylococcus aureus infection; Z79.01 Long term (current) use of anticoagulants
CPT/HCPCS: 80048; 80053; 80202; 81001; 83605; 85025; 85610; 87040; 87077; 87186; 93971; 94640; 94667; 94668; 96374; 96375; 96376; 97110; 97116; 97162; 97165; 99285; J1200; J2270; J2405; J3370; J7030; J7040; J7050

== ENCOUNTER 2018-01-03 21:09 | Emergency (ER) | payer OTHER ==
[~2018-01-03] VITALS: Ht 175.3 cm; Wt 111.0 kg
--- OUTSIDE RECORDS SUMMARY | ~2018-01-03 | XMS | Encounter Summary ---
Demographics + + + | Address | [address] | | | [place] [address] | + + + | Home Phone | | + + + | Preferred Language | Unknown | + + + | Marital Status | Single | + + + | Pentecostalism Affiliation | 1013 | + + + | Race | Unknown | + + + | Ethnic Group | Unknown | + + + Author + + + | Author | [facility] [facility] [facility] | + + + | Organization | [facility] [employer] [facility] [facility] | + + + | Address | Unknown | + + + | Phone | Unavailable | + + + Support + + + + + | Name | Relationship | Address | Phone | + + + + + | Marianna Ly | ECON | [address] | | | | [address], [place] | | | | | [address] | | + + + + + Care Team Providers + +------+ + | Care Chemical Process Operator Name | Role | Phone | + +------+ + | Tahir Hill | PCP | | + +------+ + Reason for Visit + + + | Reason | Comments | + + + | Labs Only | | + + + Encounter Details +--------+ + + + + | Date | Type | Department | Care Team | Description | +--------+ + + + + | 10/18/ | Documentati | [facility] | Anish, | Labs Only | | 2018 | on Only | [facility] | [facility] [place] | | | | | [address] | | | | | | [place] | | | | | | [address] | | | | | | [phone] | | | +--------+ + + + [...] | | | | | [place] [address] | | | | | | [phone] | | | | | | | | +--------+---------+ + + + as of this encounter Visit Diagnoses Not on filein this encounter"
--- OUTSIDE RECORDS SUMMARY | ~2018-01-03 | XMS | Encounter Summary ---
Demographics + + + | Address | [address] | | | [place] [address] | + + + | Home Phone | | + + + | Preferred Language | Unknown | + + + | Marital Status | Single | + + + | Yarsani Affiliation | 1013 | + + + | Race | Unknown | + + + | Ethnic Group | Unknown | + + + Author + + + | Author | [facility] [facility] | + + + | Organization | [facility] [employer] [facility] | + + + | Address | Unknown | + + + | Phone | Unavailable | + + + Support + + + + + | Name | Relationship | Address | Phone | + + + + + | Marianna Ly | ECON | [address] | | | | [address], [place] | | | | | [address] | | + + + + + Care Team Providers + +------+ + | Care Demurrage Worker Name | Role | Phone | + +------+ + | Tahir Hill VIDEO GAME ANIMATOR | PCP | | + +------+ + Reason for Referral Echo (Routine) + +--------+ + + + + | Status | Reason | Specialty | Diagnoses / | Referred By | Referred To | | | | | Procedures | Contact | Contact | + +--------+ + + + + | Pending | | | Diagnoses | Dagoberto, | | | Review | | | Essential | Domonique Chen | | | | | | hypertension | HOME VISITOR [address] | | | | | | with goal | [address] [place] | | | | | | blood | John F | | | | | | pressure | [place] | | | | | | less than | [address] | | | | | | 130/80 | Phone: | | | | | | Hyperlipidem | [phone] | | | | | | ia, | Fax: | | | | | | unspecified | [phone] | | | | | | hyperlipidem | | | | | | | ia type | | | | | | | Thoracoabdom | | | | | | | inal aortic | | | | | | | aneurysm, | | | | | | | without | | | | | | | rupture | | | | | | | (HCC) | | | | | | | Murmur, | | | | | | | cardiac | | | | | | | Procedures | | | | | | | Echo cardiac | | | | | | | adult | | | | | | | complete | | | + +--------+ + + + + Reason for Visit + + + | Reason | Comments | + + + | Follow-up | 2 month - echo STA 10/30/17 | + + + Encounter Details +--------+---------+ + + + | Date | Type | Department | Care Team | Description | +--------+---------+ + + + | 11/27/ | Office | [facility] | Domonique Arenas | Essential | | 2018 | Visit | Card[facility] [place] | NASREEN Chen [address] | hypertension with | | | | [address] | Mayra [address] F | goal blood pressure | | | | [address] | [place] [address] | less than 130/80 | | | | [place] [address] | [phone] | (Primary Dx); | | | | [phone] | | Hyperlipidemia, | | | | | | unspecified | | | | | | hyperlipidemia type; | | | | | | Thoracoabdominal | | | | | | aortic aneurysm, | | | | | | without rupture | | | | | | (HCC); H/O syncope; | | | | | | Murmur, cardiac; | | | | | | Obstructive sleep | | | | | | apnea syndrome; | | | | | | Chronic obstructive | | | | | | pulmonary disease, | | | | | | unspecified COPD | | | | | | type (HCC); Former | | | | | | heavy tobacco | | | | | | smoker; History of | | | | | | anemia | +--------+---------+ + + + Social History + +-------+ [...] + + + as of this encounter Last Filed Vital Signs + + + + | Vital Sign | Reading | Time Taken | + + + + | Blood Pressure | 112/60 | 11/27/2017 10:53 AM PDT | + + + + | Pulse | 67 | 11/27/2017 10:53 AM PDT | + + + + | Temperature | - | - | + + + + | Respiratory Rate | 20 | 11/27/2017 10:53 AM PDT | + + + + | Oxygen Saturation | 98% | 11/27/2017 10:53 AM PDT | + + + + | Inhaled Oxygen | - | - | | Concentration | | | + + + + | Weight | 106.6 kg (235 lb 1.6 | 11/27/2017 10:53 AM PDT | | | oz) | | + + + + | Height | 177.8 cm (5' 10") | 11/27/2017 10:53 AM PDT | + + + + | Body Mass Index | 33.73 | 11/27/2017 10:53 AM PDT | + + + + in this encounter Instructions Patient Instructions - Mattiedolores ZuriNASREEN Chen - 11/27/2017 11:00 AM PDTYour labs looked good and not anemic , and cholesterol is well controlled Your Echo also looked good I have ordered you an Echo to be done at [facility] in one year, see me back in one year in this encounter Progress Notes Mattiedolores Domonique ChenNASREEN - 11/27/2017 11:00 AM PDTFormatting of this note may be differen t from the original. Date of visit: 11/27/2017 Primary Care Physician: TAHIR HILL CHIEF COMPLAINT: Chief Complaint Patient presents with Follow-up 2 month - echo STA 10/30/17 HISTORY OF PRESENT ILLNESS: Mr. Joselin Win, [place], is a 57-year-old man who is here today for follow-up on his labs and his Echo. He has a previous history of syncope though workup was benign including a 32 day cardiac event monitor and no further episodes of syncope, hypertension, hyperlipidemia, and COPD w rubens is followed by Dr. Lujan. I saw him last on October 16, 2017 when I had ordered him an echo, referred him for assess ment of his uncorrected sleep apnea and ordered a CMP, lipid panel, CBC, iron panel with a f erritin level . His labs performed 10/17/17 showed normal current panel with ferritin of 162 though iron low-end of normal at 82 and low sat of 24.1%, his lipid panel shows lipids well controlled with LDL of 68, triglycerides of 116, and total cholesterol of 131, and he had a normal CMP showing normal liver enzymes and normal renal function, and CBC also showed normal hemoglob in and hematocrit and platelet count. His Echo performed at [facility] on October 30, 2017 reported a normal EF of 60-65 p ercent, right ventricle normal in size and function, and the aortic root, ascending aorta, a nd aortic arch were all normal dimensions, and there was no significant valvular abnormaliti es. He was admitted to the emergency room November 19, 2017 for increasing lower back pain radiati ng to his right buttocks and legs. I reviewed ER documentation today Blood pressure mild ly elevated with pain but improved when they treated pain ,and he was treated with Decadron and given a prescription for prednisone and oxycodone and sent home. His COPD continues to be well controlled with no recent exacerbation, but still suffers fr om dyspnea with exertion, and activities of daily living have been difficult with increased hip pain. Today, he denies any chest pain, palpitations, dyspnea, dizziness,or syncope. He also de nies any signs or symptoms of stroke or TIA. He does have an appointment to be seen by Dr. Glez at the [facility] sleep lab in January to get evaluation and treatment of his sleep apnea REVIEW OF SYSTEMS: Negative except for pertinent items noted in HPI. Constitutional: mild fatigue or unexplained weight loss. Appetite is good. Weight is sta ble. Denies night sweats fevers or chills HENT: Denies nosebleeds. Positive for hearing loss . Denies dysphagia Eyes: History of eye surgery orbit blowout ? Denies visual disturbance or double vision. Respiratory/Sleep:: Positive for COPD (Dr. Lujan), sleep apnea ,not wearing CPAP. Positive for dyspnea with more extreme exertion, reports occasional cough Denies hemoptysis or exce ssive sputum production. Denies orthopnea, PND. Cardiovascular: Denies chest pain, palpitations and leg swelling. Denies history of rheuma tic fever. Denies claudication . Gastrointestinal:history of GERD , on PPI . Denies nausea, vomiting, abdominal pain and blood in stool. Genitourinary: Denies hematuria. Musculoskeletal: Positive for joint pain and arthralgia severe right hip pain, back , shoul richelle, neck , Denies myalgias, Skin: Denies color change. Denies rash or lesions Neurological: Positive for Numbness to legs, and arms . Denies history of stroke/Transie nt ischemic attack.Denies history of seizures. Denies dizziness, syncope Hematological/Oncology Does not bruise/bleed easily. Denies history of cancer Endocrine: Denies diabetes or thyroid disease. Denies excessive thirst or hunger. Psychiatric/Behavioral: The patient denies any history of depression or anxiety or other ps ychiatric illness. Vaccines: Current on 2017 flu vaccine. Current on pneumonia vaccine. Habits/Social : history of smoking, quit in June 2015. Smoked 3 packs a day 35 years . Previously used smokeless tobacco quit in June 2015.. Denies EtOH use for 2 years , p revious heavy drinker. Drinks servings of 12 cups coffee/tea daily, uses 1/2 chocolate , murray lf dec aff . Denies recreational or illicit drug use, previously used methamphetamine 20 years, cocaine, marijuana, crack, mushrooms. Exercises with tasiks in [employer], walking, a nd tolerates. 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 amitriptyline (ELAVIL) 100 MG tablet Take 100 mg by mouth nightly. amLODIPine (NORVASC) 5 MG tablet Take 5 mg by mouth daily. ascorbic acid (VITAMIN C) 250 MG tablet Take 250 mg by mouth daily. atorvastatin (LIPITOR) 40 MG tablet Take 1 tablet by mouth nightly. 30 tablet 11 cloNIDine (CATAPRES) 0.3 MG tablet Take 0.3 mg by mouth nightly. diclofenac (CATAFLAM) 50 MG tablet Take 50 mg by mouth 2 (two) times daily. ferrous sulfate, 65 FE, 324 (65 FE) MG EC tablet Take 65 mg of iron by mouth daily with breakfast. With 250 mg Vit C fluticasone-salmeterol (ADVAIR) 500-50 MCG/DOSE diskus inhaler Inhale 1 puff into the l ungs 2 (two) times daily. gabapentin (NEURONTIN) 600 MG tablet Take 300 mg by mouth 3 (three) times daily. hydrochlorothiazide (HYDRODIURIL) 12.5 MG tablet Take 12.5 mg by mouth daily. ibuprofen (MOTRIN) 600 MG tablet Take 600 mg by mouth every 6 (six) hours as needed for Pain. Trying to use sparingly ipratropium-albuterol (DUO-NEB) 0.5-2.5 mg/3mL Take 3 mLs by nebulization as needed. metoprolol (LOPRESSOR) 25 MG tablet Take 1 tablet by mouth 2 (two) times daily. 60 tabl et 11 montelukast (SINGULAIR) 10 MG tablet Take 10 mg by mouth nightly. Multiple Vitamins-Minerals (RA CENTRAL-ALTON PO) Take by mouth daily. nitroGLYCERIN (NITROSTAT) 0.[address] 1 tablet under the tongue every 5 (fiv e) minutes as needed for Chest pain. 90 tablet 0 pantoprazole (PROTONIX) 40 MG tablet Take 40 mg by mouth daily. tamsulosin (FLOMAX) 0.4 MG capsule Take 0.4 mg by mouth After dinner. thiamine (VITAMIN B-1) 100 MG tablet Take 1 tablet by mouth daily. 30 tablet 0 umeclidinium bromide (INCRUSE ELLIPTA) 62.5 MCG/INH inhaler Inhale 1 puff into the lung s daily. No facility-administered medications prior to visit. PHYSICAL EXAM: Wt Readings from Last 3 Encounters: 11/27/17 106.6 kg (235 lb 1.6 oz) 10/16/17 108.1 kg (238 lb 6.4 oz) 08/03/17 109.8 kg (242 lb) Temp Readings from Last 3 Encounters: 08/03/17 97.6 F (36.4 C) (Oral) 01/31/17 97.2 F (36.2 C) (Oral) 11/17/16 98.6 F (37 C) (Temporal) BP Readings from Last 3 Encounters: 11/27/17 112/60 10/16/17 116/62 08/03/17 127/79 Pulse Readings from Last 3 Encounters: 11/27/17 67 10/16/17 64 08/03/17 54 GENERAL: Well developed, well nourished, in no distress. Appears older than stated age. HEENT: Normocephalic, atraumatic. EYES: PERRL, EOM normal. MOUTH: Oral mucosae moist, dentition adequate, no lesions noted NECK: No JVD, lymphadenopathy, thyromegaly, bruits. Carotid pulses are 2+ bilaterally LUNGS/CHEST: Clear bilaterally, with no rales, rhonchi or wheezing noted, respirations unl abored HEART: Nondisplaced PMI, regular rate and rhythm, S1, S2 normal. 2/6 murmur RUSB, rubs or gallops noted. ABDOMEN: Soft, nontender, no organomegaly, masses or bruits. Bowel sounds are normal in a ll 4 quadrants. The abdominal aortic pulsation is not palpable. EXTREMITIES: No edema. Radial pulses 2+ bilaterally. Femoral pulses are 2+ bilaterally wi thout bruits. DP and PT pulses are 2+ bilaterally. No clubbing.varicosities SKIN: Warm and dry, capillary refill is normal, no lesions. NEUROLOGIC: Awake, alert and oriented x 3. No focal motor or sensory deficits. PSYCHIATRIC: Appropriate, affect appears normal DATA: Blood tests: Lab Results Component Value Date WBC 9.0 10/17/2017 RBC 4.79 10/17/2017 HGB 14.7 10/17/2017 HCT 43.4 10/17/2017 PLT 286 10/17/2017 Lab Results Component Value Date NA 142 10/17/2017 K 4.0 10/17/2017 CL 103 10/17/2017 CO2 28 10/17/2017 ANIONGAP 15.0 10/17/2017 GLUF 99 10/17/2017 BUN 18 10/17/2017 CREATININE 0.88 10/17/2017 BCR 20.5 10/17/2017 CA 9.7 10/17/2017 EGFR 90 10/17/2017 Lab Results Component Value Date CHOL 131 10/17/2017 TRIG 116 10/17/2017 LDL 68 10/17/2017 GLUF 99 10/17/2017 HGBA1C 5.7 01/23/2016 Lab Results Component Value Date TSH 4.48 01/23/2016 No results found for: METF, NMETFX, TFNMFX, [id number], [id number], TOTEPI IMAGING/PROCEDURES Last Stress Test, 01/23/2016: Lexiscan, no ischemia detected, LVEF 63%. ECHO: Last Echo : 2017: ([facility]): TAS. EF 60-65 percent. LV normal size and wall th ickness. No regional wall motion abnormalities. Diastolic pattern normal for patient age. RV normal in size and function. Normal size atrium. Aortic valve trileaflet, mildly thick ened, no aortic regurgitation or stenosis. Mitral valve normal, trace MR, no mitral valve p rolapse or stenosis. Tricuspid valve normal. TAS B not assessed due to absence of TR jet. No pericardial effusion. IVC <1.5 cm. CVP estimate 0-5 mmHg. Aortic root, ascending aort a, and aortic arch are normal Echo, 02/08/2016 ([facility]): LVEF 65-70%, trace MR, trace TR. Ascending Aorta 41 mm, A ortic arch 37 mm. OTHER: PFT: 11/24/2016: Minimal obstructive airway disease, severe restriction-parenchymal, mild di ffusion defect. FVC 2.65 percent) FEV1 2.07 (56 percent), ratio 0.78. Significant broncho dilator response. TLC 4.53 CL (66 percent) DLCO 21.3 (68 percent), data and tracings person ally reviewed by me, original interpretation Dr. Sinclair for TOCP, effusion not corrected for Hg b EKG/EVENT MONITORS 32-Day Cardiac Event Monitor, 02/03/2016: sinus rhythm, 51-133, averaging 80 bpm, rare ectop y, no AB/pauses, symptoms of "chest pain, SOB, dizziness, fluttering" all associated with NSR. EK2015: Normal sinus rhythm. Rate 63 bpm, ID 144 ms, QRS 94 ms, QTC 407 ms, perso [place] reviewed by me EK2017: Normal sinus rhythm. Rate 63 bpm, ID 146 ms, QRS 96 ms, QTC 427 ms, EKG t racing personally reviewed by me Labs: 2016: Lipids: Cholesterol 110, triglycerides 81, HDL 35.8, LDL 58, VLDL 16, ratio 3.1 , non-HDL cholesterol 74. CMP: Sodium 141, potassium 4, chloride 103, glucose 104, BUN 20, creatinine 0.81, GFR 99. AST 21, ALT 25, alk phos 58, total bilirubin 0.6, albumin 4.4. CB C: WBC 9.2, hemoglobin 15, hematocrit 45.3, platelets 304, ESR 4 Labs: : Lipids: Cholesterol 131, triglycerides 116, HDL 40.3, LDL 68, VLDL 23, ra alpesh 3.3, non-HDL cholesterol 91.( Lipitor 40 mg ) CMP: Sodium 142, potassium 4, chloride 1 03, glucose 99, BUN 18, creatinine 0.88, AST 19, ALT 25, alk phos 59, total bilirubin 0.5, G FR 90, albumin 4.4. CBC: WBC 9, hemoglobin 14.7, hematocrit 43.4, platelets 286. Iron pane l: Iron 82.66, TIBC 2 343, percent sat 24, ferritin 162.8, U TIBC 260, transferrin 245 ASSESSMENT & PLAN: He was here today to follow-up on his Echo and labs which I ordered when I saw him [facility]. His labs performed 10/17/17 showed normal current panel with ferritin of 162 though iron low-end of normal at 82 and low sat of 24.1%, his lipid panel shows lipids well controlled with LDL of 68, triglycerides of 116, and total cholesterol of 131, and he had a normal CMP showing normal liver enzymes and normal renal function, and CBC also showed normal hemoglob in and hematocrit and platelet count. His Echo performed at [facility] on October 30, 2017 reported a normal EF of 60-65 p ercent, right ventricle normal in size and function, and the aortic root, ascending aorta, a nd aortic arch were all normal dimensions, and there was no significant valvular abnormaliti es. I reviewed the results with him in detail and answered his questions and any concerns He was pleased with the results, and feels overall he is doing well but troubled by extrem e hip pain and dyspnea from COPD which affects his mobility. He is asymptomatic for any isc hemic heart disease symptoms today, and blood pressure and heart rate are well controlled on current medication. He will be following up with the [facility] sleep lab in January, and hopefully will get his sleep apnea corrected given the large contribution of sleep apnea to cardiovascular disease and arrhythmia, I agree with him that it is likely his sleep apnea was much worse when he was drinking he avily, but he would still benefit from further evaluation, initially given his underlying pu lmonary disease. I made no changes to medication today, and for his cardiac medications. he should continu e amlodipine 5 mg daily, Lipitor 40 mg qhs, clonidine 0.3mg qhs ,hydrochlorothiazide 12.5 mg daily, and metoprolol tartrate 25 mg bid and to do his best to use as little NSAIDs as pos sible, which is difficult given his severe joint pain. He reports he is looking into getting knee-high light compression socks to help with his v aricosities. I will see him back in one year, but sooner if needed, and have ordered him an echo to be done prior to seeing me back, and I will order a repeat lipid panel if not already done whe n I see him back 1. Essential hypertension with goal blood pressure less than 130/80 2. Hyperlipidemia, unspecified hyperlipidemia type 3. Thoracoabdominal aortic aneurysm, without rupture (HCC) 4. H/O syncope 5. Murmur, cardiac 6. Obstructive sleep apnea syndrome 7. Chronic obstructive pulmonary disease, unspecified COPD type (HCC) 8. Former heavy tobacco smoker 9. History of anemia Orders Placed This Encounter Procedures Echo cardiac adult complete The following portions of the patient's history were personally reviewed by me and updated as appropriate: EKG tracings, other specialty provider and PCP notes,any Hospital admission and discharge summaries, any ER records , current and previous cardiac testing and procedure reports and d loy, medication bottles brought to visit today personally reviewed by me. Allergies, current medications.labs Family history, past medical history, past social history, past surgical history. Problem list. NASREEN Boyer [facility] Cardiology 11/27/2017in this encounter Plan of Treatment +--------+---------+ + + + | Date | Type | Specialty | Care Team | Description | +--------+---------+ + + + | 01/31/ | Office | Pulmonology | Florian Lujan MD | | | 2018 | Visit | | [address] | | | | | | [place] [address] | | | | | | [phone] | | | | | | | | +--------+---------+ + + + + +--------+ + + | Name | Priori | Associated Diagnoses | Order Schedule | | | ty | | | + +--------+ + + | Echo cardiac adult complete | Routin | Essential | Expected: | | | e | hypertension with | 08/18/2018, Expires: | | | | goal blood pressure | 05/30/2019 | | | | less than 130/80 | | | | | Hyperlipidemia, | | | | | unspecified | | | | | hyperlipidemia type | | | | | Thoracoabdominal | | | | | aortic aneurysm, | | | | | without rupture | | | | | (HCC) Murmur, | | | | | cardiac | | + +--------+ + + as of this encounter Visit Diagnoses + + | Diagnosis | + + | Essential hypertension with goal blood pressure less than 130/80 - Primary | + + | Hyperlipidemia, unspecified hyperlipidemia type | + + | Thoracoabdominal aortic aneurysm, without rupture (HCC) | + + | Thoracoabdominal aneurysm without mention of rupture | + + | H/O syncope | + + | Personal history of other specified diseases | + + | Murmur, cardiac | + + | Undiagnosed cardiac murmurs | + + | Obstructive sleep apnea syndrome | + + | Obstructive sleep apnea (adult) (pediatric) | + + | Chronic obstructive pulmonary disease, unspecified COPD type (HCC) | + + | Former heavy tobacco smoker | + + | History of anemia | + + | Personal history of diseases of blood and blood-forming organs | + +
--- OUTSIDE RECORDS SUMMARY | ~2018-01-03 | XMS | Encounter Summary ---
Demographics + + + | Address | [address] | | | [place] [address] | + + + | Home Phone | | + + + | Preferred Language | Unknown | + + + | Marital Status | Single | + + + | Lutheran Affiliation | 1013 | + + + | Race | Unknown | + + + | Ethnic Group | Unknown | + + + Author + + + | Author | [facility] [employer] [facility] | + + + | Organization | [facility] [employer] [facility] | + + + | Address | Unknown | + + + | Phone | Unavailable | + + + Support + + + + + | Name | Relationship | Address | Phone | + + + + + | Marianna Ly | ECON | [address] | | | | [address], [place] | | | | | [address] | | + + + + + Care Team Providers + +------+ + | Care Jig Box Operator Name | Role | Phone | + +------+ + | Tahir Hill | PCP | | + +------+ + Reason for Visit +--------+ + | Reason | Comments | +--------+ + | Other | Tahir Hill NP | +--------+ + Encounter Details +--------+ + + + + | Date | Type | Department | Care Team | Description | +--------+ + + + + | 11/22/ | Documentati [facility] | Adelina Chairez, | Other (Tahir | | 2018 | on Only | [facility]iology [facility] | 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
--- OUTSIDE RECORDS SUMMARY | ~2018-01-03 | XMS | Encounter Summary ---
Demographics + + + | Address | [address] | | | [place] [address] | + + + | Home Phone | | + + + | Preferred Language | Unknown | + + + | Marital Status | Single | + + + | Zoroastrianism Affiliation | 1013 | + + + | Race | Unknown | + + + | Ethnic Group | Unknown | + + + Author + + + | Author | [facility] | + + + | Organization | [facility] | + + + | Address | Unknown | + + + | Phone | Unavailable | + + + Support + + + + + | Name | Relationship | Address | Phone | + + + + + | Marianna Ly | ECON | [address] | | | | [address], [place] | | | | | [address] | | + + + + + Care Team Providers + +------+ + | Care Wildlife Refuge Manager Name | Role | Phone | + +------+ + | Tahir Hill CAPTAIN WAITER | PCP | | + +------+ + [...] | | | | | hypertension | WEB MARKETING ANALYST [address] | | | | | | with goal | Mayra [place] | | | | | | blood | John F | | | | | | pressure | [place] | | | | | | less than | [address] | | | | | | 130[address]80 | Phone: | | | | | | Hyperlipidem | [phone] | | | | | | ia, | Fax: | | | | | | unspecified | [phone] | | | | | | hyperlipidem [...] | | | Way [address] | [place] [address] | less than [address] | | | | [place] [address] | [phone] | (Primary Dx); | | | | [phone] | | Hyperlipidemia, | | | | [...] you an Echo to be done at [facility] in one year, see me back in one year in this encounter Progress Notes Mattiedolores Domonique ChenNASREEN - 11/27/2017 11:00 AM PDTFormatting of this note may be differen t from the original. Date of visit: 11/27/2017 Primary Care Physician: TAHIR HILL CHIEF COMPLAINT: Chief Complaint Patient presents with Follow-up 2 month - echo STA 10/30/17 HISTORY OF PRESENT ILLNESS: Mr. Joselin Win, [place], is a 57-year-old man who is here [...] and platelet count. His Echo performed at [facility] on October 30, 2017 reported a normal [...] be seen by Dr. Glez at the [facility] sleep lab in January to get evaluation [...] marijuana, crack, mushrooms. Exercises with tasiks in [place], walking, a nd tolerates. 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 Ascending [...] EK2015: Normal sinus rhythm. Rate 63 bpm, WY 144 ms, QRS 94 ms, QTC 407 ms, perso [place] reviewed by me EK2017: Normal sinus rhythm. Rate 63 bpm, WY 146 ms, QRS 96 ms, QTC 427 [...] which I ordered when I saw him [facility]. His labs performed 10/17/17 showed normal current [...] and platelet count. His Echo performed at [facility] on October 30, 2017 reported a normal [...] He will be following up with the [place] sleep lab in January, and hopefully will [...] past surgical history. Problem list. NASREEN [facility] Cardiology 11/27/2017in this encounter Plan of Treatment +--------+---------+ + + + | Date | Type | Specialty | Care Team | Description | +--------+---------+ + + + | 01/31/ | Office | Pulmonology | Florian Lujan MD | | | 2018 | Visit | | [address] | | | | | | [place] [address] | | | | | | [phone] | | | | | | | [...]
--- OUTSIDE RECORDS SUMMARY | ~2018-01-03 | XMS | Encounter Summary ---
Demographics + + + | Address | [address] | | | [place] [address] | + + + | Home Phone | | + + + | Preferred Language | Unknown | + + + | Marital Status | Single | + + + | Restoration Affiliation | 1013 | + + + | Race | Unknown | + + + | Ethnic Group | Unknown | + + + Author + + + | Author | [facility] | + + + | Organization | [facility] | + + + | Address | Unknown | + + + | Phone | Unavailable | + + + Support + + + + + | Name | Relationship | Address | Phone | + + + + + | Marianna Ly | ECON | [address] | | | | [address], [place] | | | | | [address] | | + + + + + Care Team Providers + +------+ + | Care Mid Level Project Manager Name | Role | Phone | + +------+ + | Tahir Hill | PCP | | + +------+ + Encounter Details +--------+ + + + + | Date | Type | Department | Care Team | Description | +--------+ + + + + | 10/09/ | Telephone | [facility] | Lisandra Hurtado, | | | 2017 | | Pulmonology [address] | GENERAL OFFICE ASSOCIATE | | | | | [address] | | | | | | [place] | | | | | | [address] | | | | | | [phone] | | | +--------+ + + + [...] | | | | | [place] [address] | | | | | | [phone] | | | | | | | | +--------+---------+ + + + as of this encounter Visit Diagnoses Not on filein this encounter"
--- OUTSIDE RECORDS SUMMARY | ~2018-01-03 | XMS | Clinical Summary ---
Demographics + + + | Address | [address] | | | [place] [address] | + + + | Home Phone | | + + + | Preferred Language | Unknown | + + + | Marital Status | | + + + | Protestant Affiliation | 1013 | + + + | Race | Unknown | + + + | Ethnic Group | Unknown | + + + Author + + + | Author | [facility] | | | and [place] | + + + | Organization | [facility] | | | and [place] | + + + | Address | Unknown | + + + | Phone | Unavailable | + + + Support + + + + + | Name | Relationship | Address | Phone | + + + + + | Rudi Ly | JON | [address] | | | | | [address], [place] | | | | | [address] | | + + + + + Care Team Providers + +------+ + | Care Garde Manger Name | Role | Phone | + +------+ + | Tahir Hill NP | PP | Unavailable | + +------+ + Allergies + + + + + + | Active Allergy | Reactions | Severity | Noted | Comments | | | | | Date | | + + + + + + | Aspirin | Other (See Comments) | | 07/13/20 | Stomach Ulcer: | | | | | 15 | side affect | + + + + + + | Trazodone | Other (See Comments) | | 07/13/20 | Aggression : side | | | | | 15 | effects | + + + + + + Current Medications + + + +---------+------+------+-------+ | Prescription | Sig. | Disp. | Refills | Star | End | Statu | | | | | | t | Date | s | | | | | | Date | | | + + + +---------+------+------+-------+ | montelukast | Take 10 mg by mouth | | | | | Activ | | (SINGULAIR) 10 mg | nightly. | | | | | e | | tablet | | | | | | | + + + +---------+------+------+-------+ | amitriptyline | Take 100 mg by mouth | | | | | Activ | | (ELAVIL) 100 MG | nightly. | | | | | e | | tablet | | | | | | | + + + +---------+------+------+-------+ | venlafaxine | Take 100 mg by mouth | | | | | Activ | | (EFFEXOR) 100 MG | 2 times daily. 1 | | | | | e | | tablet | tablet 2 with food | | | | | | | | twice a day. | | | | | | + + + +---------+------+------+-------+ | amLODIPine | Take 5 mg by mouth | | | | | Activ | | (NORVASC) 5 mg | Daily. | | | | | e | | tablet | | | | | | | + + + +---------+------+------+-------+ | | Take 12.5 mg by | | | | | Activ | | hydrochlorothiazide | mouth Daily. | | | | | e | | (HYDRODIURIL) 12.5 | | | | | | | | MG tablet | | | | | | | + + + +---------+------+------+-------+ | thiamine (VITAMIN | Take 100 mg by mouth | | | | | Activ | | B-1) 100 mg tablet | Daily. | | | | | e | + + + +---------+------+------+-------+ | tamsulosin | Take 0.4 mg by mouth | | | | | Activ | | (FLOMAX) 0.4 mg CAPS | daily (after | | | | | e | | | breakfast). | | | | | | + + + +---------+------+------+-------+ | cloNIDine | Take 0.3 mg by mouth | | | | | Activ | | (CATAPRES) 0.3 MG | 2 times daily. | | | | | e | | tablet | | | | | | | + + + +---------+------+------+-------+ | meloxicam (MOBIC) | Take 15 mg by mouth | | | | | Activ | | 15 mg tablet | Daily. | | | | | e | + + + +---------+------+------+-------+ | albuterol 90 | Inhale 2 puffs into | | | | | Activ | | mcg/puff inhaler | the lungs every 6 | | | | | e | | | hours as needed for | | | | | | | | Wheezing. | | | | | | + + + +---------+------+------+-------+ | levalbuterol | Take 3 mLs by | 270 mL | 11 | 10/2 | | Activ | | (XOPENEX) 1.25 mg/3 | nebulization every 6 | | | 7/20 | | e | | mL nebulizer | hours as needed for | | | 15 | | | | solutionIndications: | Wheezing or | | | | | | | COPD (chronic | Shortness of Breath. | | | | | | | obstructive | [place]: 12 months | | | | | | | pulmonary disease) | | | | | | | | ([facility]) | | | | | | | + + + +---------+------+------+-------+ | umeclidinium | Inhale 1 puff into | 1 | 11 | 10/3 | | Activ | | (INCRUSE ELLIPTA) | the lungs Daily. | Inhaler | | 0/20 | | e | | 62.5 mcg/puff | | | | 15 | | | | inhaler | | | | | | | + + + +---------+------+------+-------+ | diphenhydrAMINE | Take 25 mg by mouth | | | | | Activ | | (BENADRYL) 25 mg | nightly as needed | | | | | e | | tablet | for Itching. | | | | | | + + + +---------+------+------+-------+ | losartan (COZAAR) | Take 1 tablet by | 30 | 2 | 02/2 | | Activ | | 25 mg tablet | mouth Daily. | tablet | | 3/20 | | e | | | | | | 16 | | | + + + +---------+------+------+-------+ | Multiple | Take one tablet | | 0 | 03/0 | | Activ | | Vitamins-Minerals | daily | | | 1/20 | | e | | ([facility]) | | | | 16 | | | | TABS | | | | | | | + + + +---------+------+------+-------+ | rOPINIrole | Take 1 tablet by | 60 | 2 | 03/2 | | Activ | | (REQUIP) 0.25 mg | mouth nightly 30 | tablet | | 4/20 | | e | | tablet | minutes before | | | 16 | | | | | bedtime for 1 week, | | | | | | | | then increase to 2 | | | | | | | | tablets by mouth | | | | | | | | nightly 30 minutes | | | | | | | | before bedtime if | | | | | | | | still having | | | | | | | | symptoms. | | | | | | + + + +---------+------+------+-------+ | pantoprazole | Take 1 tablet by | 60 | 11 | 03/2 | | Activ | | (PROTONIX) 40 mg | mouth 2 times daily | tablet | | 4/20 | | e | | tablet | (before meals). | | | 16 | | | + + + +---------+------+------+-------+ | diphenhydrAMINE | take 1 capsule by | 30 | 3 | 04/1 | | Activ | | (BENADRYL) 25 MG | mouth NIGHTLY | capsule | | 5/20 | | e | | capsule | | | | 16 | | | + + + +---------+------+------+-------+ | | Inhale 1 puff into | 1 each | 11 | 06/0 | | Activ | | fluticasone-salmeter | the lungs 2 times | | | 1/20 | | e | | ol | daily. Rinse mouth | | | 16 | | | | (FLUTICASONE-SALMETE | out with use. | | | | | | | ROL) 500-50 mcg/puff | | | | | | | | diskus inhaler | | | | | | | + + + +---------+------+------+-------+ Active Problems + + + | Problem | Noted Date | + + + | Pre-syncope | 12/11/2015 | + + + | Obstructive chronic bronchitis (HCC) | 09/08/2015 | + + + | HTN (hypertension) | | + + + | Elevated fasting blood sugar | | + + + | DARYL (obstructive sleep apnea) | | + + + + + | Overview: [facility] | + + + +---+ | Drug abuse in remission | | + +---+ + + | Overview: past use of meth and cocaine and marijuana. Clean | | since 2005 | + + + +---+ | GERD (gastroesophageal reflux disease) | | + +---+ | Anxiety | | + +---+ | Depression | | + +---+ | Insomnia | | + +---+ + + | Overview: due to mental condition | + + + +---+ | Alcohol dependence (HCC) | | + +---+ | Obesity | | + +---+ Immunizations + + + + | Name | Dates Previously Given | Next Due | + + + + | INFLUENZA PF | 07/14/2015 | | | QUAD(PED/ADOL/ADULT) | | | | ,PSKT or VIAL | | | + + + + | INFLUENZA, | 06/18/2014 | | | UNSPECIFIED | | | | FORMULATION | | | + + + + | PNEUMOCOCCAL | 09/08/2015 | | | POLYSACCHARIDE | | | | 23-VALENT (PPSV23) | | | + + + + Family History + + +------+ + | Medical History | Relation | Name | Comments | + + +------+ + | Alcohol abuse | Brother | | | + + +------+ + | Schizophrenia | Brother | | | + + +------+ + | Psychiatric Illness | Father | | | + + +------+ + | Diabetes | Mother | | | + + +------+ + | Migraines | Sister | | | + + +------+ + + +------+ + + | Relation | Name | Status | Comments | + +------+ + + | Brother | | Alive | | + +------+ + + | Father | | | | + +------+ + + | Mother | | | complications of diabetes | + +------+ + + | Sister | | Alive | | + +------+ + + | Sister | | | industrial accident | + +------+ + + Social History + + + +--------+ + | Tobacco Use | Types | Packs/Day | Years | Date | | | | | Used | | + + + +--------+ + | Former Smoker | Cigarettes | 2 | 37 | Quit: 04/13/2015 | + + + +--------+ + + +---+---+---+ | Smokeless Tobacco: | | | | | Never Used | | | | + +---+---+---+ + + | Tobacco Cessation: Counseling Given: No | + + + + +---------+ + | Alcohol Use | Drinks/We | oz/Week | Comments | | | ek | | | + + +---------+ + | No | 0 | 0.0 | | | | Standard | | | [...] + + + | Blood Pressure | 140/70 | 12/10/2015 1312 PDT | + + + + | Pulse | 84 | 12/10/20152 PDT | + + + + | Temperature | - | - | + + + + | Respiratory Rate | 16 | 07/14/2015 1501 PDT | + + + + | Oxygen Saturation | 96% | 12/10/20151311 PDT | + + + + | Inhaled Oxygen | - | - | | Concentration | | | + + + + | Weight | 122.5 kg (270 lb) | 12/10/20151311 PDT | + + + + | Height | 172.7 cm (5' 8") | 12/10/20151311 PDT | + + + + | Body Mass Index | 41.05 | 12/10/20151311 PDT | + + + + Plan of Treatment + + + + + | Health Maintenance | Due Date | Last Done | Comments | + + + + + | Hepatitis C | | | | | Screening | 2 | | | + + + + + | Vaccine: | | | | | Dtap/Tdap/Td (1 - | 1 | | | | Tdap) | | | | + + + + + | COLON CANCER | | | | | SCREENING | 2 | | | | (COLONOSCOPY EVERY | | | | | 10 YEARS 50-75) | | | | + + + + + | Vaccine: Influenza | | 07/14/2015, 06/18/2014 | | | (Season Ended) | 8 | | | + + + + + | Vaccine: | Completed | 09/08/2015, 04/09/2015 | | | Pneumococcal 19-64 | | | | | (PPSV23 only) Medium | | | | | Risk | | | | + + + + + Results Not on filefrom Last 3 Months Insurance + +--------+ +--------+ +---------+ | Payer | Benefi | Subscriber | Type | Phone | Address | | | t Plan | ID | | | | | | / | | | | | | | Group | | | | | + +--------+ +--------+ +---------+ | [employer] | MOD[employer] | [id number] | Medica | [id number] | | | MEDICAID HMO | HEALTH | | id | [id number] | | | | MDCD | | | | | | | HMO [place] | | | | | + +--------+ +--------+ +---------+ + +--------+ +--------+ + + | Guarantor Name | Accoun | Relation to | Date | Phone | Billing Address | | | t Type | Patient | of | | | | | | | | | | + +--------+ +--------+ + + | BEVERLEY WIN | Person | Self [birth year] Home: | [address] | | | al/Fam | | 1960 | [phone] | [address] [place], | | | [place] | | | [phone] | [place] [address] | + +--------+ +--------+ + +
--- OUTSIDE RECORDS SUMMARY | ~2018-01-03 | XMS | Encounter Summary ---
Demographics + + + | Address | [address] | | | [place] [address] | + + + | Home Phone [...] + + + | Author | [facility] | + + + | Organization | [facility] | + + + | Address | Unknown | + + + | Phone | Unavailable | + + + Support + + + + + | Name | Relationship | Address | Phone | + + + + + | Marianna Ly | ECON | [address] | | | | | [address], [place] | | | | | [address] | | + + + + + Care Team Providers + +------+ + | Care Digital Associate Name | Role | Phone | + [...] [place] | | | | | | [address] | | | | | | [phone] | | | +--------+ + + + [...] [address] | | | | | | [place] [address] | | | | | | [phone] | | | | | | | | +--------+---------+ + + + as of this encounter Visit Diagnoses Not on filein this encounter"
--- OUTSIDE RECORDS SUMMARY | ~2018-01-03 | XMS | Clinical Summary ---
Demographics + + + | Address | [address] | | | [place] [address] | + + + | Home Phone | | + + + | Preferred Language | Unknown | + + + | Marital Status | | + + + | Druze Affiliation | 1013 | + + + | Race | Unknown | + + + | Ethnic Group | Unknown | + + + Author + + + | Author | [facility] | | | and [place] | + + + | Organization | [facility] | | [...] [address], [place] | | | | | [address] | | + + + + + Care Team Providers + +------+ + | Care County Administrator Name | Role | Phone | + [...] | | | | | | | ([facility]) | | | | | | | [...] | 1/20 | | e | | ([facility]) | | | | 16 | | [...] + + + + + | Overview: [facility] | + + + +---+ [...] | [employer] | xxxxxxxx | Medica | [phone] | | | MEDICAID HMO | HEALTH [...] [place] | | | [address] | [place] [address] | + +--------+ +--------+ + +
--- OUTSIDE RECORDS SUMMARY | ~2018-01-03 | XMS | Encounter Summary ---
Demographics + + + | Address | [address] | | | [place] [address] | + + + | Home Phone | | + + + | Preferred Language | Unknown | + + + | Marital Status | Single | + + + | Buddhist Affiliation | 1013 | + + + | Race | Unknown | + + + | Ethnic Group | Unknown | + + + Author + + + | Author | [facility] | + + + | Organization | [facility] | + + + | Address | Unknown | + + + | Phone | Unavailable | + + + Support + + + + + | Name | Relationship | Address | Phone | + + + + + | Marianna Ly | ECON | [address] | | | | [address], [place] | | | | | [address] | | + + + + + Care Team Providers + +------+ + | Care Monkey Keeper Name | Role | Phone | + +------+ + | Tahir Hill | PCP | | + +------+ + Reason for Visit +--------+ + | Reason | Comments | +--------+ + | Other | [facility], Pulmonary Function Test | +--------+ + Encounter Details +--------+ + + + + | Date | Type | Department | Care Team | Description | +--------+ + + + + | 11/01/ | Documentati | [facility] | Adelina Chairez, | Other ([facility] [place] | | 2018 | on Only | [facility] [place] | [facility] | Clinic, Pulmonary | | | | [address] | | Function Test) | | | | [place] | | | | | | [address] | | | | | | [phone] | | | +--------+ + + + [...] [address] | | | | | | [place] [address] | | | | | | [phone] | | | | | | | | +--------+---------+ + + + as of this encounter Visit Diagnoses Not on filein this encounter"
--- OUTSIDE RECORDS SUMMARY | ~2018-01-03 | XMS | Encounter Summary ---
Demographics + + + | Address | [address] | | | [place] [address] | + + + | Home Phone | | + + + | Preferred Language | Unknown | + + + | Marital Status | Single | + + + | Jew Affiliation | 1013 | + + + | Race | Unknown | + + + | Ethnic Group | Unknown | + + + Author + + + | Author | [facility] | + + + | Organization | [facility] | + + + | Address | Unknown | + + + | Phone | Unavailable | + + + Support + + + + + | Name | Relationship | Address | Phone | + + + + + | Marianna Ly | ECON | [address] | | | | [place], [place] | | | | | [address] | | + + + + + Care Team Providers + +------+ + | Care Creative Specialist Name | Role | Phone | + +------+ + | Tahir Hill CHARGEBACK ANALYST | PCP | | + +------+ + Reason for Referral Consultation (Routine) + + + + + + + | Status | Reason | Specialty | Diagnoses / | Referred By | Referred To | | | | | Procedures | Contact | Contact | + + + + + + + | Authorized | Specialty | Pulmonary | Diagnoses | Dagoberto, | Brice, Chi | | | Services | Disease | H/O syncope | Domonique Chen | [facility] | | | Required | | Essential | [address] [facility] | Sleep | | | | | hypertension | Mayra Ruby | Disorders | | | | | with goal | [facility] | [facility] | | | | | blood | [place], [place] | HOSP[facility] | | | | | pressure | [address] | [address] | | | | | less than | Phone: | [address] | | | | | [address] | [phone] | [place], [place] | | | | | Chronic | Fax: | [address] | | | | | obstructive | [phone] | Phone: | | | | | pulmonary | | [phone] | | | | | disease, | | Fax: | | | | | unspecified | | [phone] | | | | | COPD type | | | | | | | ([facility]) | | | | | | | Obstructive | | | | | | | sleep apnea | | | | | | | syndrome | | | | | | | Former heavy | | | | | | | tobacco | | | | | | | smoker | | | + + + + + + + Reason for Visit + + + | Reason | Comments | + + + | Follow-up | | + + + Routine Exam (Routine) + +--------+ + + + + | Status | Reason | Specialty | Diagnoses / | Referred By | Referred To | | | | | Procedures | Contact | Contact | + +--------+ + + + + | Authorized | | Nurse | Diagnoses | Coreydamian, | Dagoberto, | | | | Practitioner | Essential | Domonique Chen, | Domonique Chen, | | | | / Cardiology | (primary) | [address] [facility] | [address] [facility] | | | | | hypertension | Mayra Ruby | Mayra Ruby | | | | | f/u | [facility] | [facility] | | | | | annual-Vogel | [place], [place] | [place], [place] | | | | | transfer | [address] | [address] Phone: | | | | | Procedures | Phone: | [phone] | | | | | PA OFFICE | [phone] | Fax: | | | | | OUTPATIENT | Fax: | [phone] | | | | | VISIT LEVEL | [phone] | | | | | | 1 PA OFFICE | | | | | | | OUTPATIENT | | | | | | | VISIT LEVEL | | | | | | | 2 PA OFFICE | | | | | | | OUTPATIENT | | | | | | | VISIT LEVEL | | | | | | | 3 PA OFFICE | | | | | | | OUTPATIENT | | | | | | | VISIT LEVEL | | | | | | | 4 PA OFFICE | | | | | | | OUTPATIENT | | | | | | | VISIT 40 | | | | | | | MINUTES CRD | | | | | | | ANNUAL | | | | | | | FOLLOW UP | | | + +--------+ + + + + Encounter Details +--------+---------+ + + + | Date | Type | Department | Care Team | Description | +--------+---------+ + + + | 10/16/ | Office | [facility] | Domonique Arenas | H/O syncope (Primary | | 2018 | Visit | [facility] | NASREEN Chen [address] | Dx); Essential | | | | [address] | Mayra Lopez F | hypertension with | | | | [address] | [place] [address] | goal blood pressure | | | | [place] [address] | [phone] | less than 130/80; | | | | [phone] | | Hyperlipidemia, | | | | [...] | | | | | cardiac | +--------+---------+ + + + Social History [...] + + + | Blood Pressure | 116/62 | 10/16/2017 12:18 PM PST | + + + + | Pulse | 64 | 10/16/2017 12:18 PM PST | + + + + | Temperature | - | - | + + + + | Respiratory Rate | - | - | + + + + | Oxygen Saturation | 96% | 10/16/2017 12:18 PM PST | + + + + | Inhaled Oxygen | - | - | | Concentration | | | + + + + | Weight | 108.1 kg (238 lb 6.4 | 10/16/2017 12:18 PM PST | | | oz) | | + + + + | Height | 177.8 cm (5' 10") | 10/16/2017 12:18 PM PST | + + + + | Body Mass Index | 34.21 | 10/16/2017 12:18 PM PST | + + + + in this encounter Instructions Patient Instructions - Domonique Arenas ARNP - 10/16/2017 12:30 PM PSTI have ordered y ou fasting labs to be done at [facility] and also ordered you an Echo to be done at [facility] Take Vit b12 again I have ordered refill on Atorvastatin and metoprolol for one year Consider using light compression knee high socks, look like soccer socks to help with varic ose veins I have referred you to Sleep lab at [facility] for sleep apnea evaluation See me back in 2 months in this encounter Progress Notes Domonique Arenas ARNP - 10/16/2017 12:30 PM PSTFormatting of this note may be differen t from the original. Date of visit: 10/16/2017 Primary Care Physician: TAHIR HILL CHIEF COMPLAINT: Chief Complaint Patient presents with Follow-up HISTORY OF PRESENT ILLNESS: Mr. Joselin WinMumtaz, is a 57-year-old man who is here today as overdue for annual foll ow-up. He is a previous patient of Dr. Jimenez Vogel, now retired and last seen by him in August 2016. He has a previous history of syncope though workup was benign including a 32 day cardiac e vent monitor and was last seen he had no further episodes of syncope, hypertension, hyperlip idemia, COPD which is followed by Dr. Lujan. I reviewed Dr. Vogel's last note, as well as the last note of Dr. Lujan on July 2017 [facility] documents that his COPD has been well-controlled on current medications, his previous PF T done in December 2016 had shown mild obstructive disease with bronchodilator response, severe restrictive disease with parenchymal disease, and mild diffusion defect, though diffusion not corrected for hemoglobin. EKG done in the office today, 2017 shows normal sinus rhythm at 63 bpm and very simila r to EKG done in January 2016 Last labs I have from December 2016 shows lipids is well-controlled and a normal CMP except f or mild elevation of glucose to 104 and good renal function with GFR of 99 and normal liver enzymes and CBC also normal. He denies any chest pain, palpitations, dyspnea, dizziness,or syncope. He also denies any signs or symptoms of stroke or TIA, or any illness, surgery, or hospitalization since last seen. 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 He also reports he stopped using his CPAP about a year ago, as he was always struggling wi th it, and he thought his sleep apnea was mostly related to his heavy alcohol use, and now t hat he had stopped drinking, he did not need it anymore, and thinks he has been sleeping wel l without it. 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 He has been sober from alcohol or drugs for over 2 years, but does drink up to 12 cups of coffee , but drinks half decaffeinated, and also mixes with hot chocolate REVIEW OF SYSTEMS: Negative except for pertinent items noted in HPI. Constitutional: mild fatigue or unexplained weight loss. Appetite is good. Weight is sta ble. Denies night sweats fevers or chills HENT: Denies nosebleeds. Positive for hearing loss . Denies dysphagia Eyes: History of eye surgery orbit blowout ? Denies visual disturbance or double vision. Respiratory/Sleep:: Positive for COPD (Dr. Lujan), sleep apnea on CPAP. Denies cough and s hortness of breath. Denies hemoptysis or excessive sputum production. Denies snoring, ortho pnea, PND. Cardiovascular: Denies chest pain, palpitations and leg swelling. Denies history of rheuma tic fever. Denies claudication . Gastrointestinal:history of gastroesophageal reflux disease, on PPI . Denies nausea, vom iting, abdominal pain and blood in stool. Genitourinary: Denies hematuria. Musculoskeletal: Positive for joint pain and arthralgia severe right hip pain, back , shoul richelle, neck , Denies myalgias, Skin: Denies color change. Denies rash or lesions Neurological: Numbness to legs, and arms . Denies history of stroke/Transient ischemic a ttack.Denies history of seizures. Denies dizziness, syncope Hematological/Oncology [...] daily, uses 1/2 chocolate , murray lf decaff . Denies recreational or illicit drug use, previously used methamphetamine 20 years, cocaine, marijuana, crack, mushrooms. Exercises with active job, walking, and indra ates. 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 cloNIDine (CATAPRES) 0.3 MG tablet Take 0.3 mg by mouth nightly. diclofenac (CATAFLAM) 50 MG tablet Take 50 mg by mouth 2 (two) times daily. fluticasone-salmeterol (ADVAIR) 500-50 MCG/DOSE diskus inhaler Inhale [...] needed for Pain. Trying to use sparingly montelukast (SINGULAIR) 10 MG tablet Take 10 [...] 1 puff into the lung s daily. atorvastatin (LIPITOR) 40 MG tablet take 1 tablet by mouth NIGHTLY 90 tablet 3 metoprolol (LOPRESSOR) 25 MG tablet take 1 tablet by mouth twice a day 180 tablet 3 ferrous sulfate, 65 FE, 324 (65 FE) MG EC tablet Take 65 mg of iron by mouth daily with breakfast. With 250 mg Vit C cyanocobalamin (VITAMIN B-12) 100 MCG tablet Take 100 mcg by mouth daily. cyclobenzaprine (FLEXERIL) 5 MG tablet Take 5 mg by mouth 3 (three) times daily as need ed for Muscle spasms. levalbuterol (XOPENEX) 1.25 MG/0.5ML nebulizer solution Take 1 ampule by nebulization e very 4 (four) hours as needed for Wheezing. No facility-administered medications prior to visit. PHYSICAL EXAM: Wt Readings from Last 3 Encounters: 10/16/17 108.1 kg (238 lb 6.4 oz) 08/03/17 109.8 kg (242 lb) 01/31/17 115.7 kg (255 lb) Temp Readings from Last 3 Encounters: 08/03/17 97.6 F (36.4 C) (Oral) 01/31/17 97.2 F (36.2 C) (Oral) 11/17/16 98.6 F (37 C) (Temporal) BP Readings from Last 3 Encounters: 10/16/17 116/62 08/03/17 127/79 01/31/17 104/66 Pulse Readings from Last 3 Encounters: 10/16/17 64 08/03/17 54 01/31/17 55 GENERAL: Well developed, well nourished, in no [...] tests: Lab Results Component Value Date WBC 8.39 01/23/2016 RBC 4.82 01/23/2016 HGB 13.8 01/23/2016 HCT 41.7 01/23/2016 PLT 275 01/23/2016 Lab Results Component Value Date NA 136 01/23/2016 K 3.9 01/23/2016 CL 101 01/23/2016 CO2 30 01/23/2016 ANIONGAP 9 01/23/2016 GLUF 99 01/23/2016 BUN 17 01/23/2016 CREATININE 0.89 01/23/2016 BCR 19 01/23/2016 CA 9.5 01/23/2016 EGFR >60 01/23/2016 Lab Results Component Value Date CHOL 204 (H) 01/23/2016 TRIG 294 (H) 01/23/2016 LDL 110 (H) 01/23/2016 GLUF 99 01/23/2016 HGBA1C 5.7 01/23/2016 Lab Results Component Value Date TSH 4.48 01/23/2016 No results found for: METF, NMETFX, TFNMFX, [id number], [id number], TOTEPI IMAGING/PROCEDURES Last Stress Test, 01/23/2016: Lexiscan, no ischemia detected, LVEF 63%. ECHO: Last Echo, 02/08/2016 ([facility]): LVEF 65-70%, trace MR, trace TR. Ascending Aorta 41mm , Aortic arch 37mm. OTHER: PFT: 11/24/2016: Minimal obstructive airway disease, severe restriction-parenchymal, mild di ffusion defect. FVC 2.65 (65 percent) FEV1 2.07 (56 percent), ratio 0.78. Significant bron chodilator response. TLC 4.53 L (66 percent) DLCO 21.3 (68 percent), data and tracings pers onally reviewed by me, original interpretation Dr. Martin COULTER, effusion not corrected for Hg b EKG/EVENT MONITORS 32-Day Cardiac Event Monitor, 02/03/2016: sinus rhythm, 51-133, averaging 80bpm, rare ectopy , no AVB/pauses, symptoms of "chest pain, SOB, dizziness, fluttering" all associated with NSR. EK2015: Normal sinus rhythm. Rate 63 bpm, PA 144 ms, QRS 94 ms, QTC 407 ms, perso [place] reviewed by me EK2017: Normal sinus rhythm. Rate 63 bpm, PA 146 ms, QRS 96 ms, QTC 427ms, EKG tr acing personally reviewed by me Labs: 2016: Lipids: Cholesterol 110, triglycerides 81, HDL 35.8, LDL 58, VLDL 16, ratio 3.1 , non-HDL cholesterol 74. CMP: Sodium 141, potassium 4, chloride 103, glucose 104, BUN 20, creatinine 0.81, GFR 99. AST 21, ALT 25, alk phos 58, total bilirubin 0.6, albumin 4.4. CB C: WBC 9.2, hemoglobin 15, hematocrit 45.3, platelets 304, ESR 4 ASSESSMENT & PLAN: He was here today as overdue for annual exam and overall seems to be very stable from a cardiovascular point of view with stable EKG and labs from December 2016 showing lipids well c ontrolled and fairly normal CMP with good renal function and liver enzymes and normal CBC. Overall he is asymptomatic for any ischemic heart disease and feels that he is doing very we ll since he quit drinking 2 years ago. He is overdue for an echo to evaluate his enlarged ascending aorta and aortic arch so I h ave ordered him one to be done at [facility]. He also has not had any lab work since Dec so I have ordered a CMP, lipid panel, CBC, iron panel with ferritin to evaluate anem ia , copies to be sent to his PCP, Tahir Hill. He also has stopped wearing his CPAP and uncorrected sleep apnea is a large contributor t o cardiovascular disease and arrhythmia, so I have referred him to the [place] sleep lab for further evaluation of his sleep apnea. I agree with him that it is likely his sleep ap mary was much worse when he was drinking heavily, but he would still benefit from further pati luation. I have also suggested he try taking vitamin B12 again, ordered refills on atorvastatin and metoprolol for one year, and suggested he consider using a knee-high light compression soc ks to help with varicosities. I also reinforced teaching on minimizing use of NSAIDs due to increased renal and cardiovascular risk, which he is aware of I will see him back in 2 months and for his cardiac meds, he should continue amlodipine 5 mg daily, Lipitor 40 mg qhs, clonidine 0.3mg qhs hydrochlorothiazide 12.5 mg daily, and met oprolol tartrate 25 mg bid 1. H/O syncope 2. Essential hypertension with goal blood pressure less than 130/80 3. Hyperlipidemia, unspecified hyperlipidemia type 4. Chronic obstructive pulmonary disease, unspecified COPD type (HCC) 5. Thoracoabdominal aortic aneurysm, without rupture (HCC) 6. Obstructive sleep apnea syndrome 7. Former heavy tobacco smoker 8. History of anemia 9. Murmur, cardiac Orders Placed This Encounter Procedures Comprehensive metabolic panel Lipid panel CBC and differential Iron panel Ferritin Ambulatory referral to Pulmonology Electrocardiogram, 12-lead Echo cardiac adult complete The following portions [...] social history, past surgical history. Problem list. [facility] 10[facility]16[facility]2017in this encounter Plan of Treatment +--------+---------+ + + + | Date | Type | Specialty | Care Team | Description | +--------+---------+ + + + | 01/31/ | Office | Pulmonology | Florian Lujan MD | | | 2017 | Visit | | [address] | | | | | | [place] [address] | | | | | | [phone] | | | | | | | | +--------+---------+ + + + + +--------+ + + | Name | Priori | Associated Diagnoses | Order Schedule | | | ty | | | + +--------+ + + | Comprehensive metabolic panel | Routin | H/O syncope | Expected: | | | e | Hyperlipidemia, | 10/16/2017, Expires: | | | | unspecified | 10/16/2018 | | | | hyperlipidemia type | | | | | Chronic obstructive | | | | | pulmonary disease, | | | | | unspecified COPD | | | | | type (HCC) | | | | | Obstructive sleep | | | | | apnea syndrome | | | | | Former heavy tobacco | | | | | smoker History of | | | | | anemia | | + +--------+ + + | Lipid panel | Routin | Essential | Expected: | | | e | hypertension with | 10/16/2017, Expires: | | | | goal blood pressure | 10/16/2018 | | | | less than 130/80 | | | | | Hyperlipidemia, | | | | | unspecified | | | | | hyperlipidemia type | | + +--------+ + + | CBC and differential | Routin | Chronic | Expected: | | | e | obstructive | 10/16/2017, Expires: | | | | pulmonary disease, | 10/16/2018 | | | | unspecified COPD | | | | | type (HCC) | | | | | Obstructive sleep | | | | | apnea syndrome | | | | | History of anemia | | + +--------+ + + | Iron panel | Routin | Obstructive sleep | Expected: | | | e | apnea syndrome | 10/16/2017, Expires: | | | | History of anemia | 10/16/2018 | + +--------+ + + | Ferritin | Routin | Obstructive sleep | Expected: | | | e | apnea syndrome | 10/16/2017, Expires: | | | | History of anemia | 10/16/2018 | + +--------+ + + + +--------+ + + | Name | Priori | Associated Diagnoses | Order Schedule | | | ty | | | + +--------+ + + | Ambulatory referral to | Routin | H/O syncope | Ordered: 10/16/2017 | | Pulmonology | e | Essential | | | | | hypertension with | | | | | goal blood pressure | | | | | less than 130/80 | | | | | Chronic obstructive | | | | | pulmonary disease, | | | | | unspecified COPD | | | | | type (HCC) | | | | | Obstructive sleep | | | | | apnea syndrome | | | | | Former heavy tobacco | | | | | smoker | | + +--------+ + + as of this encounter Results ECHO outside interpretation standard (10/30/2017 3:43 PM) + + + | Specimen | Performing Laboratory | + + + | | [address] [place] [address] | + + + + + | [...] | e': 0.07 m/s Lateral E/e': 7.35 Sustainability Specialist: Authenticated | | by: JORGE NOVAK MD Report Date/Time: 10-30-2017 17:52:14 | + + + + | Procedure Note | + + | Jayce, Rad Results In - 10/30/2017 6:00 PM PST Patient Name: Abena Win of | | : 1960ccession: [id number] Physician: JORGE NOVAK MD | | INDICATIONS [...] mlLAESV Index (A-L): 24.66 ml/m2LAAs A2C: 15.85 [id number] A-L | | A2C: 42.05 mlLALs A2C: 5.07 cmLAAs A4C: 20.65 [id number] A-L A4C: 68.39 mlLALs | | A4C: 5.29 cmRAAs: 16.87 [id number] A-L: 44.78 mlRAESV MOD: 45.69 mlRALs: 5.39 | | cmTAPSE: 2.19 cmAV maxP.05 mmHgAV meanP.73 mmHgAV Vmax: 1.32 m/Mariam | | Vmean: 0.90 m/Mariam VTI: 29.89 cmAVA Vmax: 3.41 cm2AVA (VTI): 3.01 [id number] Vmax: | | 0.00 cm2/m2AVAI (VTI): 0.00 cm2/m2LVOT maxP.63 mmHgLVOT meanP.94 mmHgLVSI | | Dopp: 40.60 ml/m2LVSV Dopp: 90.15 mlLVOT Vmax: 1.07 m/sLVOT Vmean: 0.63 m/sLVOT | | VTI: 21.41 cmMV A Porter: 0.37 m/sMV DecT: 232.01 msMV E Porter: 0.58 m/sMV E/A | | Ratio: 1.53 Septal e': 0.08 m/sSeptal E/e': 7.16 Lateral e': 0.07 m/sLateral | | E/e': 7.35 Sustainability Specialist: Authenticated by: Jean Marie LEMUS Date/Time: 10-30-2017 [...] | |Lateral E/e': 7.35 | | | |Sustainability Specialist: | |Authenticated by: JORGE NOVAK MD | [...] valvular abnormalities are noted. | + + EKG STANDARD 12 LEAD (10/16/2017 [...] + + + + | Calculated P [place] | 42 | degrees | + + + + | Calculated R [place] | 53 | degrees | + + + + | Calculated T [place] | 60 | degrees | + + + + | Diagnosis | Please refer to Providers office visit note | | | | for Providers Interpretation.Confirmed by | | | | [facility] [place] Read Only, PETRA Martino ([id number]), | | | | editor map Issac Blackburn ([id number]) on 10/16/2017 | | | | 4:56:19 PM | | + + + + + + + | Specimen | Performing Laboratory | + + + | | [facility] [address] [facility] [address] | + + + in this encounter Visit Diagnoses + + | Diagnosis | + + | H/O syncope - Primary | + + | Personal history of [...] apnea (adult) (pediatric) | + + | Former heavy tobacco smoker | + + | History of anemia | + + | Personal history of diseases of blood and blood-forming organs | + + | Murmur, cardiac | + + | Undiagnosed cardiac murmurs | + +
--- OUTSIDE RECORDS SUMMARY | ~2018-01-03 | XMS | Encounter Summary ---
Demographics + + + | Address | [address] | | | [place] [address] | + + + | Home Phone | | + + + | Preferred Language | Unknown | + + + | Marital Status | Single | + + + | Gnosticism Affiliation | 1013 | + + + | Race | Unknown | + + + | Ethnic Group | Unknown | + + + Author + + + | Author | [facility] | + + + | Organization | [facility] | + + + | Address | Unknown | + + + | Phone | Unavailable | + + + Support + + + + + | Name | Relationship | Address | Phone | + + + + + | Marianna Ly | ECON | [address] | | | | | [address], [place] | | | | | [address] | | + + + + + Care Team Providers + +------+ + | Care Manager Category Name | Role | Phone | + [...] [place] | | | | | | [address] | | | | | | [phone] | | | +--------+ + + + [...] | | | | | [place] [address] | | | | | | [phone] | | | | | | | | +--------+---------+ + + + as of this encounter Visit Diagnoses Not on filein this encounter"
--- OUTSIDE RECORDS SUMMARY | ~2018-01-03 | XMS | Encounter Summary ---
Demographics + + + | Address | [address] | | | [place] [address] | + + + | Home Phone | | + + + | Preferred Language | Unknown | + + + | Marital Status | Single | + + + | Anglican Affiliation | 1013 | + + + | Race | Unknown | + + + | Ethnic Group | Unknown | + + + Author + + + | Author | [facility] | + + + | Organization | [facility] | + + + | Address | Unknown | + + + | Phone | Unavailable | + + + Support + + + + + | Name | Relationship | Address | Phone | + + + + + | Marianna Ly | ECON | [address] | | | | | [address], [place] | | | | | [address] | | + + + + + Care Team Providers + +------+ + | Care Community Leader Name | Role | Phone | + [...] [place] | | | | | | [address] | | | | | | [phone] | | | +--------+ + + + [...] [address] | | | | | | [place] [address] | | | | | | [phone] | | | | | | | [...] | + + + | Blood | INTERLOCATED WITHIN [facility] [place] | | | [address] | + + + Comprehensive metabolic panel [...] + + | Blood | [facility] [address] [place] [address], [place] [address] [place] | | | [address] | + + + Transferrin (10/17/2017 7:42 AM) + +--------+ + | Component | Value | Ref Range | + +--------+ + | TRANSFERRIN | 245.11 | 180 - 329 | + +--------+ + + + + | Specimen | Performing Laboratory | + + + | Blood | [facility] [address] [place] [address] [place] | | | [address] | + + + Ferritin (10/17/2017 7:42 AM) + +-------+ + | Component | Value | Ref Range | + +-------+ + | FERRITIN | 162.8 | 30 - 400 ng/mL | + +-------+ + + + + | Specimen | Performing Laboratory | + + + | Blood | [facility] [address] | | | [address] | + + + Iron panel (10/17/2017 [...] + | Blood | [facility] [address] [facility] [address] [place], [place] | | | [address] | + + + CBC W/Auto Diff [...] + | Blood | [facility] [address] [place] | | | [address] | + + + in this encounter Visit Diagnoses Not on filein this encounter"
--- OUTSIDE RECORDS SUMMARY | ~2018-01-03 | XMS | Encounter Summary ---
Demographics + + + | Address | [address] | | | [place] [address] | + + + | Home Phone | | + + + | Preferred Language | Unknown | + + + | Marital Status | Single | + + + | Uatsdin Affiliation | 1013 | + + + | Race | Unknown | + + + | Ethnic Group | Unknown | + + + Author + + + | Author | [facility] | + + + | Organization | [facility] | + + + | Address | Unknown | + + + | Phone | Unavailable | + + + Support + + + + + | Name | Relationship | Address | Phone | + + + + + | Marianna Ly | ECON | [address] | | | | [address], [place] | | | | | [address] | | + + + + + Care Team Providers + +------+ + | Care Mat Maker Name | Role | Phone | + +------+ + | Tahir Hill | PCP | | + +------+ + Encounter Details +--------+ + + + + | Date | Type | Department | Care Team | Description | +--------+ + + + + | 10/09/ | Telephone | [facility] | Lisandra Hurtado, | | | 2017 | | Pulmonology [address] | [employer] | | | | | [address] | | | | | | [place] | | | | | | [address] | | | | | | [phone] | | | +--------+ + + + [...] | | | | | [place] [address] | | | | | | [phone] | | | | | | | | +--------+---------+ + + + as of this encounter Visit Diagnoses Not on filein this encounter"
--- OUTSIDE RECORDS SUMMARY | ~2018-01-03 | XMS | Clinical Summary ---
Demographics + + + | Address | [address] | | | [place] [address] | + + + | Home Phone [...] + + + | Author | [facility] [employer] | + + + | Organization | [facility] [employer] | + + + | Address | Unknown | + + + | Phone | Unavailable | + + + Support + + + + + | Name | Relationship | Address | Phone | + + + + + | Marianna Ly | ECON | [address] | | | | | [place], [place] | | | | | [address] | | + + + + + Care Team Providers + +------+ + | Care Sand Worker Name | Role | Phone | [...] | 2018 | on Only | | HIDE INSPECTOR AND SORTER | JAMES Hill) | +--------+ + + + + | 11/01/ | Documentati | | Adelina Chairez, | Other ([facility] | | 2017 | on Only | | HIDE INSPECTOR AND SORTER | Clinic, Pulmonary | | | | [...] | | | | | | type ([facility]); | | | | | | Thoracoabdominal [...] | | | 2017 | | | HIDE INSPECTOR AND SORTER | | +--------+ + + + + [...] [place] | | | | | | [place] [address] | | | | | | [phone] | | | | | | | [...] Laboratory | + + + | | [address] [place] [address] | + + + + + | [...] | e': 0.07 m/s Lateral E/e': 7.35 Milk Vendor: Authenticated | | by: JORGE NOVAK MD Report Date/Time: 10-30-2017 17:52:14 | + + + + | Procedure Note | + + | Jayce, Rad Results In - 10/30/2017 6:00 PM PST Patient Name: Abena Win of | | : 1960ccession: [id number] Physician: JORGE NOVAK MD | | INDICATIONS [...] mlLAESV Index (A-L): 24.66 ml/m2LAAs A2C: 15.85 [id number] A-L | | A2C: 42.05 mlLALs A2C: 5.07 cmLAAs A4C: 20.65 [id number] A-L A4C: 68.39 mlLALs | | A4C: 5.29 cmRAAs: 16.87 [id number] A-L: 44.78 mlRAESV MOD: 45.69 mlRALs: 5.39 | | cmTAPSE: 2.19 cmAV maxP.05 mmHgAV meanP.73 mmHgAV Vmax: 1.32 m/Mariam | | Vmean: 0.90 m/Mariam VTI: 29.89 cmAVA Vmax: 3.41 cm2AVA (VTI): 3.01 sy9VDGG Vmax: | | 0.00 cm2/m2AVAI (VTI): 0.00 cm2/m2LVOT maxP.63 mmHgLVOT meanP.94 mmHgLVSI | | Dopp: 40.60 ml/m2LVSV Dopp: 90.15 mlLVOT Vmax: 1.07 m/sLVOT Vmean: 0.63 m/sLVOT | | VTI: 21.41 cmMV A Porter: 0.37 m/sMV DecT: 232.01 msMV E Porter: 0.58 m/sMV E/A | | Ratio: 1.53 Septal e': 0.08 m/sSeptal E/e': 7.16 Lateral e': 0.07 m/sLateral | | E/e': 7.35 Milk Vendor: Authenticated by: Jean Marie LEMUS Date/Time: 10-30-2017 [...] | |Lateral E/e': 7.35 | | | |Milk Vendor: | |Authenticated by: JORGE NOVAK MD | [...] + | Blood | [facility] [address] | | | [address] | + + + Transferrin (10/17/2017 7:42 AM) + +--------+ + | Component | Value | Ref Range | + +--------+ + | TRANSFERRIN | 245.11 | 180 - 329 | + +--------+ + + + + | Specimen | Performing Laboratory | + + + | Blood | [facility] [address] | | | [address] | + + + Ferritin (10/17/2017 7:42 AM) + +-------+ + | Component | Value | Ref Range | + +-------+ + | FERRITIN | 162.8 | 30 - 400 ng/mL | + +-------+ + + + + | Specimen | Performing Laboratory | + + + | Blood | [facility] [address] [place], [facility] 13 [place], [place] | | | [address] | + + + Lipid panel (10/17/2017 [...] | + + + | Blood | [facility] [address] [place] [address] [facility] 13 [place], [place] | | | [address] | + + + Comprehensive metabolic panel [...] + | Blood | [facility] [address] [place] | | | [address] | + + + CBC W/Auto Diff [...] | + + + | Blood | [facility] [address] [place] [address], [place] | | | [address] | + + + EKG STANDARD 12 [...] + + + + | Calculated P Gypsum | 42 | degrees | + + + + | Calculated R Gypsum | 53 | degrees | + + + + | Calculated T Gypsum | 60 | degrees | + + + + | Diagnosis | Please refer to Providers office visit note | | | | for Providers Interpretation.Confirmed by | | | | [facility] [place] Read Only, PETRA Martino ([id number]), | | | | editor & co founder Issac Blackburn ([id number]) on 10/16/2017 | | | | 4:56:19 PM | | + + + + + + + | Specimen | Performing Laboratory | + + + | | [facility] [address] [address] | + + + from Last 3 [...] | | [place] | | | | [address] | | | CARDIOVASCULAR DISEASE SPECIALIST | | | | | + +--------+ [...] | emma | | | [address] | [address] | + +--------+ +--------+ + +
--- OUTSIDE RECORDS SUMMARY | ~2018-01-03 | XMS | Encounter Summary ---
Demographics + + + | Address | [address] | | | [place] [address] | + + + | Home Phone [...] + + + | Author | [facility] [employer] | + + + | Organization | [facility] [employer] | + + + | Address | Unknown | + + + | Phone | Unavailable | + + + Support + + + + + | Name | Relationship | Address | Phone | + + + + + | Marianna Ly | ECON | [address] | | | | | [address], [place] | | | | | [address] | | + + + + + Care Team Providers + +------+ + | Care Lens Silverer Name | Role | Phone | + +------+ + | Tahir Hill | PCP | | + +------+ + Reason for Visit +--------+ + | Reason | Comments | +--------+ + | Other | [facility], Pulmonary Function Test | +--------+ + Encounter Details +--------+ + + + + | Date | Type | Department | Care Team | Description | +--------+ + + + + | 11/01/ | Documentati | [facility] | Adelina Chairez, | Other ([facility] [place] | | 2018 | on Only | Cardiology [place] | [facility] | Clinic, Pulmonary | | | | [address] | | Function Test) | | | | [place] | | | | | | [address] | | | | | | [phone] | | | +--------+ + + + [...] [place] | | | | | | [place] [address] | | | | | | [phone] | | | | | | | | +--------+---------+ + + + as of this encounter Visit Diagnoses Not on filein this encounter"
--- OUTSIDE RECORDS SUMMARY | ~2018-01-03 | XMS | Encounter Summary ---
Demographics + + + | Address | [address] | | | [place] [address] | + + + | Home Phone [...] + + + | Author | [facility] [employer] | + + + | Organization | [facility] [employer] | + + + | Address | Unknown | + + + | Phone | Unavailable | + + + Support + + + + + | Name | Relationship | Address | Phone | + + + + + | Marianna Ly | ECON | [address] | | | | | [address], [place] | | | | | [address] | | + + + + + Care Team Providers + +------+ + | Care Information And Referral Director Name | Role | Phone | + [...] hypertension with | | | | | [place] [address] | goal blood pressure | | | | | [phone] | less than 130/80; | | | [...] [place] | | | | | | [place] [address] | | | | | | [phone] | | | | | | | [...] Laboratory | + + + | | [address] [address] | + + + + + | [...] | e': 0.07 m/s Lateral E/e': 7.35 Entry Level Marketing Assistant: Authenticated | | by: JORGE NOVAK MD Report Date/Time: 10-30-2017 17:52:14 | + + + + | Procedure Note | + + | Jayce, Rad Results In - 10/30/2017 6:00 PM PST Patient Name: Abena Win of | | : 1960ccession: [id number] Physician: JORGE NOVAK MD | | INDICATIONS [...] mlLAESV Index (A-L): 24.66 ml/m2LAAs A2C: 15.85 [id number] A-L | | A2C: 42.05 mlLALs A2C: 5.07 cmLAAs A4C: 20.65 [id number] A-L A4C: 68.39 mlLALs | | A4C: 5.29 cmRAAs: 16.87 [id number] A-L: 44.78 mlRAESV MOD: 45.69 mlRALs: 5.39 | | cmTAPSE: 2.19 cmAV maxP.05 mmHgAV meanP.73 mmHgAV Vmax: 1.32 m/Mariam | | Vmean: 0.90 m/Mariam VTI: 29.89 cmAVA Vmax: 3.41 cm2AVA (VTI): 3.01 kr4WYMT Vmax: | | 0.00 cm2/m2AVAI (VTI): 0.00 cm2/m2LVOT maxP.63 mmHgLVOT meanP.94 mmHgLVSI | | Dopp: 40.60 ml/m2LVSV Dopp: 90.15 mlLVOT Vmax: 1.07 m/sLVOT Vmean: 0.63 m/sLVOT | | VTI: 21.41 cmMV A Porter: 0.37 m/sMV DecT: 232.01 msMV E Porter: 0.58 m/sMV E/A | | Ratio: 1.53 Septal e': 0.08 m/sSeptal E/e': 7.16 Lateral e': 0.07 m/sLateral | | E/e': 7.35 Entry Level Marketing Assistant: Authenticated by: Jean Marie LEMUS Date/Time: 10-30-2017 [...] | |Lateral E/e': 7.35 | | | |Entry Level Marketing Assistant: | |Authenticated by: JORGE NOVAK MD | [...]
--- OUTSIDE RECORDS SUMMARY | ~2018-01-03 | XMS | Encounter Summary ---
Demographics + + + | Address | [address] | | | [place] [address] | + + + | Home Phone | | + + + | Preferred Language | Unknown | + + + | Marital Status | Single | + + + | Hinduism Affiliation | 1013 | + + + | Race | Unknown | + + + | Ethnic Group | Unknown | + + + Author + + + | Author | [facility] [employer] | + + + | Organization | [facility] [employer] | + + + | Address | Unknown | + + + | Phone | Unavailable | + + + Support + + + + + | Name | Relationship | Address | Phone | + + + + + | Marianna Ly | ECON | [address] | | | | | [address], [place] | | | | | [address] | | + + + + + Care Team Providers + +------+ + | Care Heeler Name | Role | Phone | + [...] MENG | | | | | | [address] | | | | | | [phone] | | | +--------+ + + + [...] [place] | | | | | | [place] [address] | | | | | | [phone] | | | | | | | | +--------+---------+ + + + as of this encounter Visit Diagnoses Not on filein this encounter"
--- OUTSIDE RECORDS SUMMARY | ~2018-01-03 | XMS | Encounter Summary ---
Demographics + + + | Address | [address] | | | [place] [address] | + + + | Home Phone | | + + + | Preferred Language | Unknown | + + + | Marital Status | Single | + + + | Catholic Affiliation | 1013 | + + + | Race | Unknown | + + + | Ethnic Group | Unknown | + + + Author + + + | Author | [facility] [employer] | + + + | Organization | [facility] [employer] | + + + | Address | Unknown | + + + | Phone | Unavailable | + + + Support + + + + + | Name | Relationship | Address | Phone | + + + + + | Marianna Ly | ECON | [address] | | | | | [address], [place] | | | | | [address] | | + + + + + Care Team Providers + +------+ + | Care Gm Name | Role | Phone | + [...] M[place] | | | | | | [address] | | | | | | [phone] | | | +--------+ + + + [...] [place] | | | | | | [place] [address] | | | | | | [phone] | | | | | | | [...] | + + + | Blood | [facility] [address] [place] | | | [address] | + + + Comprehensive metabolic panel [...] + + | Blood | [facility] [address] [place] [address], [facility] [address] [place] | | | [address] | + + + Transferrin (10/17/2017 7:42 AM) + +--------+ + | Component | Value | Ref Range | + +--------+ + | TRANSFERRIN | 245.11 | 180 - 329 | + +--------+ + + + + | Specimen | Performing Laboratory | + + + | Blood | [facility] [address] [place] [address] [place] | | | [address] | + + + Ferritin (10/17/2017 7:42 AM) + +-------+ + | Component | Value | Ref Range | + +-------+ + | FERRITIN | 162.8 | 30 - 400 ng/mL | + +-------+ + + + + | Specimen | Performing Laboratory | + + + | Blood | [facility] [address] | | | [address] | + + + Iron panel (10/17/2017 [...] + | Blood | [facility] 1100 [facility] 13 [place], [place] | | | [address] | + + + CBC W/Auto Diff [...] + | Blood | [facility] [address] [place] | | | [address] | + + + in this encounter Visit Diagnoses Not on filein this encounter"
--- OUTSIDE RECORDS SUMMARY | ~2018-01-03 | XMS | Encounter Summary ---
Demographics + + + | Address | [address] | | | [place] [address] | + + + | Home Phone | | + + + | Preferred Language | Unknown | + + + | Marital Status | Single | + + + | Adventism Affiliation | 1013 | + + + | Race | Unknown | + + + | Ethnic Group | Unknown | + + + Author + + + | Author | [facility] [employer] | + + + | Organization | [facility] [employer] | + + + | Address | Unknown | + + + | Phone | Unavailable | + + + Support + + + + + | Name | Relationship | Address | Phone | + + + + + | Marianna Ly | ECON | [address] | | | | | [address], [place] | | | | | [address] | | + + + + + Care Team Providers + +------+ + | Care Radiation Therapist Name | Role | Phone | + +------+ + | Tahir Hill SHEET ROCK INSTALLER | PCP | | + +------+ + [...] | | Required | | Essential | GUEST SERVICES COORDINATOR [address] | Sleep | | | | | hypertension | Mayra Ruby | Disorders | | | | | with goal | [facility] | [facility] | | | | | blood | [place], [place] | HOSPITAL | | | | | pressure | [address] | [address] | | | | | less than | Phone: | [address] | | | | | 130/80 | [phone] | [place], [place] | | | | | Chronic | Fax: | [address] | | | | | obstructive | [phone] | Phone: | | | | | pulmonary | | [phone] | | | | | disease, | | Fax: | | | | | unspecified | | [phone] | | | | | COPD type | | | | | | | ([facility]) | | | | | [...] | | / Cardiology | (primary) | GUEST SERVICES COORDINATOR 1100 | GUEST SERVICES COORDINATOR [address] | | | | | hypertension | Mayra Ruby | Mayra Ruby | | | | | f/u | [facility] | [facility] | | | | | annual-Vogel | [place], [place] | [place] | | | | | transfer | [address] | [address] Phone: | | | | | Procedures | Phone: | [phone] | | | | | [place] OFFICE | [phone] | Fax: | | | | | OUTPATIENT | Fax: | [phone] | | | | | VISIT LEVEL | [phone] | | | | | | 1 TN OFFICE | | | | | | | OUTPATIENT | | | | | | | VISIT LEVEL | | | | | | | 2 TN OFFICE | | | | | | | OUTPATIENT | | | | | | | VISIT LEVEL | | | | | | | 3 TN OFFICE | | | | | | | OUTPATIENT | | | | | | | VISIT LEVEL | | | | | | | 4 TN OFFICE | | | | | | [...] | | 2018 | Visit | Cardiology Stacy | NASREEN Chen [address] | Dx); Essential | | | | [address] | Mayra Lopez F | hypertension with | | | | Way [address] | [place] [address] | goal blood pressure | | | | [place] [address] | [phone] | less than 130/80; | | | | [phone] | | Hyperlipidemia, | | | | [...] ou fasting labs to be done at [facility] and also ordered you an Echo to be done at [facility] Take Vit b12 again I have ordered refill on Atorvastatin and metoprolol for one year Consider using light compression knee high socks, look like soccer socks to help with varic ose veins I have referred you to Sleep lab at [facility] for sleep apnea evaluation See me back [...] of Dr. Lujan on July [address] [facility] documents that his COPD has been well-controlled [...] without it. 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 Rate 63 bpm, TN 144 ms, QRS 94 ms, QTC 407 ms, perso pho[place] reviewed by me EK2017: Normal sinus rhythm. Rate 63 bpm, TN 146 ms, QRS 96 ms, QTC 427ms, [...] ordered him one to be done at [facility]. He also has not had any lab [...] so I have referred him to the [place] sleep lab for further evaluation of his [...] past surgical history. Problem list. Domonique ArenasNASREEN [facility] Cardiology 10/16/2017in this encounter Plan of Treatment +--------+---------+ + + + | Date | Type | Specialty | Care Team | Description | +--------+---------+ + + + | 01/31/ | Office | Pulmonology | Florian Lujan MD | | | 2017 | Visit | | [address] | | | | | | [place] [address] | | | | | | [phone] | | | | | | | [...] | + + + | | [address] [place] [address] | + + + + + | [...] | e': 0.07 m/s Lateral E/e': 7.35 Tour Leader: Authenticated | | by: JORGE NOVAK MD Report Date/Time: 10-30-2017 17:52:14 | + + + + | Procedure Note | + + | Jayce, Rad Results In - 10/30/2017 6:00 PM PST Patient Name: Abena Win of | | : 1960ccession: [id number] Physician: JORGE NOVAK MD | | INDICATIONS [...] mlLAESV Index (A-L): 24.66 ml/m2LAAs A2C: 15.85 [id number] A-L | | A2C: 42.05 mlLALs A2C: 5.07 cmLAAs A4C: 20.65 jl1WBXQK A-L A4C: 68.39 mlLALs | | A4C: 5.29 cmRAAs: 16.87 ox4NLOLX A-L: 44.78 mlRAESV MOD: 45.69 mlRALs: 5.39 | | cmTAPSE: 2.19 cmAV maxP.05 mmHgAV meanP.73 mmHgAV Vmax: 1.32 m/Mariam | | Vmean: 0.90 m/Mariam VTI: 29.89 cmAVA Vmax: 3.41 cm2AVA (VTI): 3.01 [id number] Vmax: | | 0.00 cm2/m2AVAI (VTI): 0.00 cm2/m2LVOT maxP.63 mmHgLVOT meanP.94 mmHgLVSI | | Dopp: 40.60 ml/m2LVSV Dopp: 90.15 mlLVOT Vmax: 1.07 m/sLVOT Vmean: 0.63 m/sLVOT | | VTI: 21.41 cmMV A Porter: 0.37 m/sMV DecT: 232.01 msMV E Porter: 0.58 m/sMV E/A | | Ratio: 1.53 Septal e': 0.08 m/sSeptal E/e': 7.16 Lateral e': 0.07 m/sLateral | | E/e': 7.35 Tour Leader: Authenticated by: Jean Marie LEMUS Date/Time: 10-30-2017 [...] | |Lateral E/e': 7.35 | | | |Tour Leader: | |Authenticated by: JORGE NOVAK MD | [...] + + + + | Calculated P Baker | 42 | degrees | + + + + | Calculated R Baker | 53 | degrees | + + + + | Calculated T Baker | 60 | degrees | + + + + | Diagnosis | Please refer to Providers office visit note | | | | for Providers Interpretation.Confirmed by | | | | [facility] Read Only, PETRA Martino (502), | | | | image editor Issac Blackburn (253) on 10/16/2017 | | | | 4:56:19 PM | | + + + + + + + | Specimen | Performing Laboratory | + + + | | [facility] [address] [facility] [place] [address] | + + + in this encounter [...]
--- OUTSIDE RECORDS SUMMARY | ~2018-01-03 | XMS | Encounter Summary ---
Demographics + + + | Address | [address] | | | [place] [address] | + + + | Home Phone [...] + + + | Author | [facility] [employer] [facility] | + + + | Organization | [facility] [employer] [facility] | + + + | Address | Unknown | + + + | Phone | Unavailable | + + + Support + + + + + | Name | Relationship | Address | Phone | + + + + + | Marianna Ly | ECON | [address] | | | | | [address], [place] | | | | | [address] | | + + + + + Care Team Providers + +------+ + | Care Hand Bulldozer Name | Role | Phone | + [...] hypertension with | | | | | [place] [address] | goal blood pressure | | | | | [phone] | less than 130/80; | | | [...] [place] | | | | | | [place] [address] | | | | | | [phone] | | | | | | | [...] Laboratory | + + + | | [address] [address] | + + + + + | [...] | e': 0.07 m/s Lateral E/e': 7.35 Electronic Imager: Authenticated | | by: JORGE NOVAK MD Report Date/Time: 10-30-2017 17:52:14 | + + + + | Procedure Note | + + | Jayce, Rad Results In - 10/30/2017 6:00 PM PST Patient Name: Abena Win of | | : 1960ccession: [id number] Physician: JORGE NOVAK MD | | INDICATIONS [...] mlLAESV Index (A-L): 24.66 ml/m2LAAs A2C: 15.85 [id number] A-L | | A2C: 42.05 mlLALs A2C: 5.07 cmLAAs A4C: 20.65 [id number] A-L A4C: 68.39 mlLALs | | A4C: 5.29 cmRAAs: 16.87 [id number] A-L: 44.78 mlRAESV MOD: 45.69 mlRALs: 5.39 | | cmTAPSE: 2.19 cmAV maxP.05 mmHgAV meanP.73 mmHgAV Vmax: 1.32 m/Mariam | | Vmean: 0.90 m/Mariam VTI: 29.89 cmAVA Vmax: 3.41 cm2AVA (VTI): 3.01 cs2BSJE Vmax: | | 0.00 cm2/m2AVAI (VTI): 0.00 cm2/m2LVOT maxP.63 mmHgLVOT meanP.94 mmHgLVSI | | Dopp: 40.60 ml/m2LVSV Dopp: 90.15 mlLVOT Vmax: 1.07 m/sLVOT Vmean: 0.63 m/sLVOT | | VTI: 21.41 cmMV A Porter: 0.37 m/sMV DecT: 232.01 msMV E Porter: 0.58 m/sMV E/A | | Ratio: 1.53 Septal e': 0.08 m/sSeptal E/e': 7.16 Lateral e': 0.07 m/sLateral | | E/e': 7.35 Electronic Imager: Authenticated by: Jean Marie LEMUS Date/Time: 10-30-2017 [...] |MV DecT: 232.01 ms | |MV E Potrer: 0.58 m/s | |MV E/A Ratio: 1.53 | |Septal e': 0.08 m/s | |Septal E/e': 7.16 | |Lateral e': 0.07 m/s | |Lateral E/e': 7.35 | | | |Electronic Imager: | |Authenticated by: JORGE NOVAK MD | [...]
--- OUTSIDE RECORDS SUMMARY | ~2018-01-03 | XMS | Clinical Summary ---
Demographics + + + | Address | [address] | | | [place] [address] | + + + | Home Phone [...] + + + | Author | [facility] [employer] [facility] | + + + | Organization | [facility] [employer] | + + + | Address | Unknown | + + + | Phone | Unavailable | + + + Support + + + + + | Name | Relationship | Address | Phone | + + + + + | Marianna Ly | ECON | [address] | | | | | [address], [place] | | | | | [address] | | + + + + + Care Team Providers + +------+ + | Care Structural Metal Worker Name | Role | Phone | [...] | 2018 | on Only | | [facility] | JAMES Hill) | +--------+ + + + + | 11/01/ | Documentati | | Adelina Chairez, | Other ([facility] | | 2017 | on Only | | [facility] | Clinic, Pulmonary | | | | [...] | | | | | | type ([facility]); | | | | | [...] | | | 2017 | | | [facility] | | +--------+ + + + + [...] [place] | | | | | | [place] [address] | | | | | | [phone] | | | | | | | [...] Laboratory | + + + | | [facility] [address] [place] [address] | + + + + + | [...] | e': 0.07 m/s Lateral E/e': 7.35 Truss Driver Helper: Authenticated | | by: JORGE NOVAK MD Report Date/Time: 10-30-2017 17:52:14 | + + + + | Procedure Note | + + | Jayce, Rad Results In - 10/30/2017 6:00 PM PST Patient Name: Abena Win of | | : 1960ccession: [id number] Physician: JORGE NOVAK MD | | INDICATIONS [...] mlLAESV Index (A-L): 24.66 ml/m2LAAs A2C: 15.85 [id number] A-L | | A2C: 42.05 mlLALs A2C: 5.07 cmLAAs A4C: 20.65 gx2IRWVO A-L A4C: 68.39 mlLALs | | A4C: 5.29 cmRAAs: 16.87 [id number] A-L: 44.78 mlRAESV MOD: 45.69 mlRALs: 5.39 | | cmTAPSE: 2.19 cmAV maxP.05 mmHgAV meanP.73 mmHgAV Vmax: 1.32 m/Mariam | | Vmean: 0.90 m/Mariam VTI: 29.89 cmAVA Vmax: 3.41 cm2AVA (VTI): 3.01 ro2COVV Vmax: | | 0.00 cm2/m2AVAI (VTI): 0.00 cm2/m2LVOT maxP.63 mmHgLVOT meanP.94 mmHgLVSI | | Dopp: 40.60 ml/m2LVSV Dopp: 90.15 mlLVOT Vmax: 1.07 m/sLVOT Vmean: 0.63 m/sLVOT | | VTI: 21.41 cmMV A Porter: 0.37 m/sMV DecT: 232.01 msMV E Porter: 0.58 m/sMV E/A | | Ratio: 1.53 Septal e': 0.08 m/sSeptal E/e': 7.16 Lateral e': 0.07 m/sLateral | | E/e': 7.35 Truss Driver Helper: Authenticated by: Jean Marie LEMUS Date/Time: 10-30-2017 [...] | |Lateral E/e': 7.35 | | | |Truss Driver Helper: | |Authenticated by: JORGE NOVAK MD | [...] + | Blood | [facility] [address] | | | [address] | + + + Transferrin (10/17/2017 7:42 AM) + +--------+ + | Component | Value | Ref Range | + +--------+ + | TRANSFERRIN | 245.11 | 180 - 329 | + +--------+ + + + + | Specimen | Performing Laboratory | + + + | Blood | [facility] [address] | | | [address] | + + + Ferritin (10/17/2017 7:42 AM) + +-------+ + | Component | Value | Ref Range | + +-------+ + | FERRITIN | 162.8 | 30 - 400 ng/mL | + +-------+ + + + + | Specimen | Performing Laboratory | + + + | Blood | [facility] [address] [place], [facility] [address] [place], [place] | | | [address] | + + + Lipid panel (10/17/2017 [...] | + + + | Blood | [facility] [address] [place] [address] [facility] [address] [place], [place] | | | [address] | + + + Comprehensive metabolic panel [...] + | Blood | [facility] [address] [place] | | | [address] | + + + CBC W/Auto Diff [...] | + + + | Blood | [facility] [address] [place] [address], [place] | | | [address] | + + + EKG STANDARD 12 [...] + + + + | Calculated P [place] | 42 | degrees | + + + + | Calculated R [place] | 53 | degrees | + + + + | Calculated T [place] | 60 | degrees | + + + + | Diagnosis | Please refer to Providers office visit note | | | | for Providers Interpretation.Confirmed by | | | | [facility] Read Only, PETRA Martino ([id number]), | | | | city editor Issac Blackburn ([id number]) on 10/16/2017 | | | | 4:56:19 PM | | + + + + + + + | Specimen | Performing Laboratory | + + + | | [facility] [address] [address] | + + + from Last 3 [...] | | [place] | | | | [address] | | | [employer]END[employer] ADVISOR | | | | | + +--------+ [...] | emma | | | [phone] | [phone] | + +--------+ +--------+ + +
--- OUTSIDE RECORDS SUMMARY | ~2018-01-03 | XMS | Encounter Summary ---
Demographics + + + | Address | [address] | | | [place] [address] | + + + | Home Phone | | + + + | Preferred Language | Unknown | + + + | Marital Status | Single | + + + | Rastafarian Affiliation | 1013 | + + + | Race | Unknown | + + + | Ethnic Group | Unknown | + + + Author + + + | Author | [facility] | + + + | Organization | [facility] | + + + | Address | Unknown | + + + | Phone | Unavailable | + + + Support + + + + + | Name | Relationship | Address | Phone | + + + + + | Marianna Ly | ECON | [address] | | | | [address], [place] | | | | | [address] | | + + + + + Care Team Providers + +------+ + | Care Nut Sheller Machine Operator Name | Role | Phone [...] | on Only | Cardiology Dalila | SECRETARIAL TEACHER | JAMES Hill) | | | | [address] | | | | | | [place] | | | | | | [address] | | | | | | [phone] | | | +--------+ + + + [...] | | | | | [place] [id number] | | | | | | [phone] | | | | | | | | +--------+---------+ + + + as of this encounter Visit Diagnoses Not on filein this encounter"
[~2018-01-03 21:09] MED LIST changes: +BACTRIM DS TAB1 EACH PO
[2018-01-03] MEDS ORDERED: XARELTO10 MG PO (21:20)
[2018-01-03] MEDS ORDERED: BACTRIM DS TAB1 EACH PO (21:23)
[2018-01-03] MEDS ORDERED: OXYCODONE HCL10 MG PO (21:24)
[2018-01-03] MEDS ORDERED: PANTOPRAZOLE SO20 MG PO (21:25)
[2018-01-03] MEDS ORDERED: DILAUDID4 MG PO (21:25)
[2018-01-03] MEDS ORDERED: CENTRAL-VITE1 EACH PO (21:26)
[2018-01-03] MEDS ORDERED: PROTONIX40 M1 PO (21:26)
== END 2018-01-04 00:05 | disposition home or self-care (01) ==
LOC: ED 21:09
DX: G89.18 Other acute postprocedural pain (principal); M79.604 Pain in right leg; S70.01XA Contusion of right hip, initial encounter; J44.9 Chronic obstructive pulmonary disease, unspecified; I10 Essential (primary) hypertension; K21.9 Gastro-esophageal reflux disease without esophagitis; Z87.891 Personal history of nicotine dependence; Z88.6 Allergy status to analgesic agent; Z88.8 Allergy status to other drugs, medicaments and biological substances; Z79.899 Other long term (current) drug therapy; Z96.641 Presence of right artificial hip joint; W19.XXXA Unspecified fall, initial encounter
CPT/HCPCS: 72192; 73502; 80053; 85025; 96374; 99284; J1170

== ENCOUNTER 2021-01-13 06:28 | Emergency (ER) | payer OTHER ==
[~2021-01-13] VITALS: Ht 175.3 cm; Wt 117.0 kg
[~2021-01-13 06:28] MED LIST changes: +CENTRAL-VITE1 EACH PO; +FINASTERIDE5 MG PO; +NORCO 5-325 TA1 EACH PO; +PANTOPRAZOLE SO20 MG PO; +PROTONIX40 M1 PO
[2021-01-13] MEDS ORDERED: PREDNISONE20 MG PO (10:46)
== END 2021-01-13 11:19 | disposition home or self-care (01) ==
LOC: ED 06:28
DX: J04.0 Acute laryngitis (principal); J44.9 Chronic obstructive pulmonary disease, unspecified; I10 Essential (primary) hypertension; K21.9 Gastro-esophageal reflux disease without esophagitis; Z87.891 Personal history of nicotine dependence; Z88.6 Allergy status to analgesic agent; Z88.8 Allergy status to other drugs, medicaments and biological substances; Z79.899 Other long term (current) drug therapy
CPT/HCPCS: 70491; 80053; 85025; 96375; 99283-25; J1100; J1200; Q9967

== ENCOUNTER 2021-01-26 07:45 | Day surgery (SDC) | payer OTHER ==
[~2021-01-26] VITALS: Ht 175.3 cm; Wt 115.9 kg
[~2021-01-26 07:45] MED LIST changes: +B12 ACTIVE1000 MCG PO; +BISOPROLOL FUMAR5 MG PO; +TYLENOL325 M1; +WIXELA 250-501 EACH
--- NOTE | 2021-01-26 09:47 | NUR ---
01/26/21 0947 Trisha Bey 0926-PATIENT ARRIVED TO PACU AWAKE RR EVEN 6L MASK DENIES PAIN OR NAUSEA. IVF INFUSING. SR. PATIENT HAS HOARSE VOICE
--- NOTE | 2021-01-26 13:59 | NUR ---
[id number]: PT ARRIVES TO DS RM 4 FROM PACU AWAKE AND ALERT, SITTING UPRIGHT. PT DENIES NAUSEA, TOLERATES SIPS OF WATER. PT RATES PAIN 2/10 IN THROAT AND HAS PRODUCTIVE COUGH WITH BLOOD TINGED SPUTUM. PT STATES COUGH IS CHRONIC FROM COPD, SATS GREATER THAN 94% ON RA. PT BROTHER IN ROOM AT BEDSIDE. DC CRITERIA EXPLAINED TO PT AND PROVIDED JELLO PER REQUEST. [id number]: PT PROVIDED SECOND JELLO. CONT TO RATE PAIN 2/10 IN THROAT. PT ENCOURAGED TO USE CALL LIGHT WITH URGE TO VOID. [id number]: PT USES CALL LIGHT TO NOTIFY RN OF URGE TO VOID. PT ENCOURAGED TO SIT AT SIDE OF BED PRIOR TO STANDING. PT DENIES ANY NAUSEA OR DIZZINESS WITH POSITION CHANGES. PT STANDS WITH RN ASSIST, AMBULATES TO BR WITH STEADY GAIT. PT ABLE TO VOID QS WITH NO PROBLEMS. PT BACK TO DS RM 4 TO GET DRESSED. [id number]: PT OPENS CURTAIN. IV REMOVED WNL AND PT INSTRUCTED TO REMOVE COBAN IN APPROX 15-20 MINUTES. DC INSTRUCTIONS PRESENTED TO PT AND BROTHER WITH FOLLOW UP APPT DATE AND TIME. PT DC FROM DS RM 4 VIA WC TO BROTHER'S VEHICLE AT MAIN HOSPITAL ENTRANCE TO HOME.
--- NOTE | 2021-01-29 15:43 | PATH ---
[facility] [address] [place], [place] [address] Signed SPECIMEN(S): A LEFT VOCAL CORD LESION SPECIMEN(S): B RIGHT VOCAL CORD LESION SPECIMEN SOURCE: A. LEFT VOCAL CORD LESION B. RIGHT VOCAL CORD LESION CLINICAL HISTORY: Vocal cord lesion suspicious for neoplasia FINAL PATHOLOGIC DIAGNOSIS: A. Left vocal cord lesion, biopsy: - Squamous acanthosis and hyperparakeratosis with mild chronic stromal inflammation and mild epithelial atypia favor reactive. - Focal epithelial ulceration. - Negative for evidence of malignancy on these sections. B. Right vocal cord lesion, biopsy: - Inflamed squamous epithelium with mild epithelial atypia indefinite for mild dysplasia. - Focal ulceration with chronic inflammation. - Negative for evidence of malignancy on these sections. JVR:cml:C2NR MICROSCOPIC EXAMINATION: Histologic sections of all submitted blocks are examined by light microscopy. These findings, together with the gross examination, support the pathologic diagnosis. Cytokeratin AE1/AE3 immunostains are performed with appropriate controls on blocks A1 and B1 and both are negative for evidence of occult carcinoma. GROSS DESCRIPTION: Two specimens are received in two containers, labeled "MS." A. The specimen, labeled "MS, A," and designated on the requisition "left vocal cord lesion," is received in formalin and consists of an unoriented, kaye-white, partially mucosa covered, 0.8 x 0.4 x 0.2 cm tissue piece without a discrete mass/lesion. The resection margin is inked blue and the specimen is submitted in toto in one cassette (A1). B. The specimen, labeled "MS, B," and designated on the requisition "right vocal cord lesion," is received in formalin and consists of a kaye to kaye-white, irregularly-shaped, 0.5 x 0.3 x 0.2 cm partially mucosa covered tissue fragment without a discrete mass/lesion. The PATIENT NAME: BEVERLEY VAZQUEZ PATHOLOGY DATE OF : 64 REPORT #: [id number] PHYSICIAN: VALERIE PATHOLOGY PCP: PABLO TORRES NP REPORT IS CONFIDENTIAL AND NOT TO BE RELEASED WITHOUT AUTHORIZATION [facility] [address] [place], [place] [address] Signed resection margin is inked blue and the specimen is submitted in toto in one cassette (B1). AI (under the direct supervision of a pathologist) The Gross Description was prepared using a voice recognition system. The report was reviewed for accuracy; however, sound-alike word errors, addition and/or deletions may occur. If there is any question about this report, please contact Client Services. ADDITIONAL NOTES: Immunohistochemical and/or in situ hybridization studies were performed on this case with the appropriate positive controls that react as expected. This test was developed and its performance characteristics determined by [facility]. It has not been cleared or approved by the U.S. Food and Drug Administration. The FDA has determined that such clearance or approval is not necessary. This test is used for clinical purposes. It should not be regarded as investigational or for research. [facility] is certified under the Clinical Laboratory Improvement Amendments of 1988 (CLIA) as qualified to perform high complexity clinical laboratory testing. This assay has not been validated for specimens that have been decalcified. PERFORMING LABORATORY: The technical component was performed by [facility], [address] [place] [address] (Overedge Machine Operator: Marquita Escobedo MD; CLIA# [id number]). Professional interpretation was performed by [facility], [facility], [address] [place] [address] [address] [place] [address]. Diagnostician: Jono Kapoor MD Pathologist Electronically Signed 01/29/2021 Copies: ~ PATIENT NAME: BEVERLEY VAZQUEZ PATHOLOGY DATE OF : 64 REPORT #: [id number] PHYSICIAN: VALERIE PATHOLOGY PCP: PABLO TORRES NP REPORT IS CONFIDENTIAL AND NOT TO BE RELEASED WITHOUT AUTHORIZATION
--- NOTE | 2021-02-02 11:15 | OR ---
[facility] [address] [place], [place] [address] Signed DATE OF OPERATION: 01/26/2021 SURGEON: Dell Bolivar MD PREOPERATIVE DIAGNOSIS: Vocal cord lesion. POSTOPERATIVE DIAGNOSIS: Vocal cord lesion. PROCEDURE: Direct laryngoscopy, biopsy of vocal cord lesions. ANESTHESIA: General orotracheal; MEDIA JOB TITLES, Ronnell. PREOPERATIVE HISTORY: Mr. Win is a 60-year-old man with hoarseness. Exam in the office had shown a vocal cord lesion left anterior with a nodular sympathetic appearing lesion on the right vocal cord corresponding to the lesion on the left. He is quite hoarse, taken to the operating room for the above-mentioned procedures. OPERATIVE PROCEDURE AND FINDINGS: After informed consent, the patient was taken to the operating room, placed in supine position where general orotracheal anesthesia was induced. The patient and procedure were verified. The patient was repositioned. Anterior commissure laryngoscope was used to visualize the hypopharynx and larynx. The lesion in question was on the left vocal cord, the anterior quarter of the vocal cord, not quite involving the anterior commissure. There was a slightly raised whitish fairly flat lesion just on the vocal cord and this lesion was excised with a left biting cups sent to pathology. We did not involve the subglottic area or the ventricle or the anterior commissure. There was a corresponding lesion on the right vocal cord was also excised with the right biting cup. The specimens were sent to pathology separately labeled left and right vocal cord lesions. Bleeding was minimal, stopped after observation. The larynx and pharynx suctioned of clear blood secretions. The scope was removed. The patient was then awakened, extubated, transported to the recovery room in good condition. No complications. BLOOD LOSS: Minimal. Electronically Signed By: DELL BOLIVAR MD 02/02/21 1115 PATIENT NAME: BEVERLEY WIN OPERATIVE REPORT DATE OF : 64 REPORT #: [id number] PHYSICIAN: DELL BOLIVAR MD PCP: PABLO TORRES NP REPORT IS CONFIDENTIAL AND NOT TO BE RELEASED WITHOUT AUTHORIZATION [address] [address] Signed SPECIMEN: To pathology. DRAINS: No drains. Dell Bolivar MD /FREDDIE /[id number] Copies: ~ Electronically Signed By: DELL BOLIVAR MD 02/02/21 1115 PATIENT NAME: BEVERLEY WIN OPERATIVE REPORT DATE OF : 64 REPORT #: [id number] PHYSICIAN: DELL BOLIVAR MD PCP: PABLO TORRES NP REPORT IS CONFIDENTIAL AND NOT TO BE RELEASED WITHOUT AUTHORIZATION
== END 2021-01-26 11:30 | disposition home or self-care (01) ==
LOC: OPS 07:45 → DS 07:45 → OPS 09:30 → DS 10:00 → OPS 10:00
PROVIDERS: ATTEND Otolaryngology
PROC: 0CBV8ZX Excision of Left Vocal Cord, Via Natural or Artificial Opening Endoscopic, Diagnostic (ICD-10-PCS; principal; 2021-01-26 09:30)
DX: L83 Acanthosis nigricans (principal); J38.3 Other diseases of vocal cords; K21.9 Gastro-esophageal reflux disease without esophagitis; E78.00 Pure hypercholesterolemia, unspecified; I10 Essential (primary) hypertension; J44.9 Chronic obstructive pulmonary disease, unspecified; E11.9 Type 2 diabetes mellitus without complications; G47.30 Sleep apnea, unspecified; Z88.6 Allergy status to analgesic agent; Z88.8 Allergy status to other drugs, medicaments and biological substances; Z87.891 Personal history of nicotine dependence
CPT/HCPCS: 00320; J1100; J2001; J2405; J2704; J3010; J7121

== ENCOUNTER 2021-06-08 11:40 | Day surgery (SDC) | payer OTHER ==
[~2021-06-08] VITALS: Ht 177.8 cm; Wt 109.1 kg
--- NOTE | ~2021-06-08 | OR ---
[facility] [address] [place], [place] [address] Draft DATE OF OPERATION: 06/08/2021 SURGEON: Sg Benavides MD PREOPERATIVE DIAGNOSES: 1. Multiple medical problems with gastroesophageal reflux. 2. Findings of prior vocal cord nodularity (excised by Dr. Mares). 3. Reported history of Whitaker's esophagus. POSTOPERATIVE DIAGNOSES: 1. Mild chronic distal esophagitis without neoplasm; equivocal for Whitaker's epithelium. 2. Hiatal hernia and poor flap valve. 3. Mild antral gastritis. PROCEDURE: Esophagogastroduodenoscopy with biopsy. ANESTHESIA: Intravenous sedation, fentanyl 100 mcg and Versed 4 mg and preoperative treatment with Ancef 2 g IV (hip replacement). INDICATIONS: This obese and generally unwell 61-year-old white man is a patient of RADHA Joseph. He was evaluated by Dr. Mares with hoarseness and found on laryngoscopy to have nodules of the vocal cords, which were excised and found to be benign. He is considered likely to have reflux problems based on the findings of the vocal cord nodules and considered likely to have laryngeal esophageal reflux issues. He is also reported to have Whitaker's esophagus, though that is not certain to me. He does not have dysphagia or hematemesis. He is admitted at this time to undergo upper endoscopy to better characterize the extent of his reflux problem and for surveillance regarding Whitaker's epithelium. He understands the risks of bleeding, infection, and perforation related to upper endoscopy and wished to proceed. FINDINGS: The vocal cords were evaluated and found to have no nodularity at this time. The posterior commissure had a rough corrugated appearance, which may or may not be suggestive of laryngeal esophageal reflux. Esophagus itself had no evidence of stricture. I did not see extensive Whitaker's epithelium particularly, although there was chronic esophagitis otherwise. The flap PATIENT NAME: BEVERLEY VAZQUEZ OPERATIVE REPORT DATE OF : 64 REPORT #: [id number] PHYSICIAN: SG BENAVIDES MD PCP: PABLO TORRES NP REPORT IS CONFIDENTIAL AND NOT TO BE RELEASED WITHOUT AUTHORIZATION [facility] [address] [place], [place] [address] Draft valve on retroflexed view was quite abnormal notably with an amorphous flap valve. The stomach had mild antral gastritis. The duodenum had minimal inflammation but no ulceration. CLOtest was negative 15 minutes post procedure. DESCRIPTION OF PROCEDURE: The patient was brought to the endoscopy suite and placed in the lateral decubitus position. He is given intravenous antibiotic Ancef preoperatively. He was then given intravenous sedation to the point of slurred speech and nystagmus with full cardiopulmonary monitoring. An Olympus video upper endoscope was passed in the hypopharynx. The vocal cords showed no evidence of recurrent or persistent nodularity. The posterior commissure itself was somewhat corrugated and rough, which may or may not be suggestive of laryngal esophageal reflux. The scope was easily passed into the esophagus and passage down the esophagus showed no evidence of neoplasm or stricture or varices. The distal portion showed mild chronic inflammation, but Whitaker's epithelium was not a demonstrable finding particularly. The scope was advanced to the stomach, which was insufflated with air. Rugal folds were normal as was the antral motility. Pylorus was normal. Scope was passed into the duodenum. There was mild inflammation of the duodenum, but not much and biopsies were obtained. There was no sign of ulceration. The scope was withdrawn to the antrum where biopsies were taken for both NATE and pathologic testing. Retroflexed view showed considerable amorphous GE junction consistent with hiatal hernia and poor flap valve. The scope was withdrawn to the distal esophagus and careful inspection did not show findings particularly typical of extensive Whitaker's epithelium. There was some accentuation of the Z-line. Biopsies were obtained . There was no stricture. The scope was withdrawn further and no signs of Whitaker's epithelium were noted nor sign of of the midesophagus or elsewhere. Reinspection of the vocal cords again showed no sign of neoplasm, nodule, or other abnormality at this time. The scope was removed and the patient was taken to the recovery room in good condition. CONCLUDING DIAGNOSIS: Very certainly he does have gastroesophageal reflux from a clinical and endoscopic standpoint related to hiatal hernia and poor flap valve. PPI medication would be continued. He is said to be on Protonix 40 mg daily and if he is not at least on that should consider Prilosec 20 mg p.o. b.i.d. He does additionally take Tums which might be helpful for symptom control as well. I did not see much in the way of Whitaker's epithelium, although biopsies were obtained. The single most beneficial thing for him regarding his reflux symptoms would be weight loss. We will discuss that as well. FOLLOWUP PLAN: He will return to see me in approximately 4 weeks. PATIENT NAME: BEVERLEY VAZQUEZ OPERATIVE REPORT DATE OF : 64 REPORT #: [id number] PHYSICIAN: SG BENAVIDES MD PCP: PABLO TORRES NP REPORT IS CONFIDENTIAL AND NOT TO BE RELEASED WITHOUT AUTHORIZATION [place] [id number] Draft MD FABRICIO Schultz/ANITHAL /[id number] cc: Allisno Winslow FNP Copies: ~ PATIENT NAME: KINBEVERLEY CALDERÓN OPERATIVE REPORT DATE OF : 64 REPORT #: [id number] PHYSICIAN: SG BENAVIDES MD PCP: PABLO TORRES NP REPORT IS CONFIDENTIAL AND NOT TO BE RELEASED WITHOUT AUTHORIZATION
[~2021-06-08 11:40] MED LIST changes: -WIXELA 250-501 EACH; +WIXELA 250-501 EACH INH
--- NOTE | 2021-06-08 15:20 | NUR ---
06/08/21 1520 Orly Crespo 1437 PT ARRIVED IN PACU WIDE AWAKE WITH NO C/O'S. 1450 SITTING AT SIDE OF BED SIPPING ON JUICE. AT BEDSIDE. 1500 DC INSTRUCTIONS GIVEN. ALL QUESTIONS ANSWERED. 1510 LEFT VIA W/C.
--- NOTE | 2021-06-09 14:55 | PATH ---
[facility] [address] [place], [place] [address] Signed SPECIMEN(S): A DUODENAL BIOPSY SPECIMEN(S): B ANTRUM/PYLORUS BIOPSY SPECIMEN(S): C DISTAL ESOPHAGUS BIOPSY SPECIMEN SOURCE: A. DUODENAL BIOPSY B. ANTRUM/PYLORUS BIOPSY C. DISTAL ESOPHAGUS BIOPSY CLINICAL HISTORY: Severe reflux. DX: Hiatal hernia; mild chronic distal esophagitis. MICROSCOPIC DESCRIPTION: Histologic sections of all submitted blocks are examined by light microscopy. These findings, together with the gross examination, support the pathologic diagnosis. FINAL PATHOLOGIC DIAGNOSIS: A. Duodenum, biopsy: - Duodenal mucosa with prominent Cayla's glands. - Negative for increased intraepithelial lymphocytes or villous blunting. - Negative for dysplasia or malignancy. B. Stomach, antrum/pylorus, biopsy: - Oxyntic type mucosa with no histopathologic abnormality. - Negative for Helicobacter organisms on HE stain. - Negative for dysplasia or malignancy. C. Esophagus, distal, biopsy: - Squamous mucosa with mild reactive changes. - Minute fragment of cardia-type gastric mucosa with no histopathologic abnormality. - Negative for intestinal metaplasia, dysplasia, or malignancy. NAL:cml:C2NR GROSS DESCRIPTION: Three specimens are received in three containers labeled with "MS". A. The specimen, labeled "MS, 1," and designated on the requisition "duodenum biopsy," is received in formalin and consists of one fragment of pink-kaye tissue (0.3 cm in greatest dimension). The specimen is submitted entirely in cassette A1. B. The specimen, labeled "MS, 2," and designated on the requisition "antrum/pylorus biopsy," is received in formalin and consists of two fragments of pink-kaye tissue (0.2 to 0.3 cm in greatest PATIENT NAME: BEVERLEY VAZQUEZ PATHOLOGY DATE OF : 64 REPORT #: [id number] PHYSICIAN: VALERIE HAYWOOD PCP: PABLO TORRES NP REPORT IS CONFIDENTIAL AND NOT TO BE RELEASED WITHOUT AUTHORIZATION [facility] [address] [place], [place] [address] Signed dimension). The specimen is submitted entirely in cassette B1. C. The specimen, labeled "MS, 3," and designated on the requisition "distal esophagus biopsy," is received in formalin and consists of four fragments of white-kaye tissue (0.1 to 0.3 cm in greatest dimension). The specimen is submitted entirely in cassette C1. AC (under the direct supervision of a pathologist) The Gross Description was prepared using a voice recognition system. The report was reviewed for accuracy; however, sound-alike word errors, addition and/or deletions may occur. If there is any question about this report, please contact Client Services. PERFORMING LABORATORY: The technical component was performed by [facility], [address] [place] [address] (Shear Grinder Operator Helper: Marquita Escobedo MD; CLIA# [id number]). [facility], [address] [place] [address] (CLIA# [id number]). Diagnostician: Gayla Lo MD Pathologist Electronically Signed 06/09/2021 Copies: ~ PATIENT NAME: BEVERLEY VAZQUEZ JULIO C PATHOLOGY DATE OF : 64 REPORT #: [id number] PHYSICIAN: VALERIE PATHOLOGY PCP: PABLO TORRES NP REPORT IS CONFIDENTIAL AND NOT TO BE RELEASED WITHOUT AUTHORIZATION
== END 2021-06-08 15:10 | disposition home or self-care (01) ==
LOC: OPS 11:40 → DS 11:41 → OPS 13:00 → DS 13:00 → OPS 15:10
PROVIDERS: ATTEND Surgery
PROC: 0DB68ZZ Excision of Stomach, Via Natural or Artificial Opening Endoscopic (ICD-10-PCS; principal; 2021-06-08 13:00)
DX: K21.00 Gastro-esophageal reflux disease with esophagitis, without bleeding (principal); K44.9 Diaphragmatic hernia without obstruction or gangrene; K29.70 Gastritis, unspecified, without bleeding; K29.80 Duodenitis without bleeding; E66.9 Obesity, unspecified; J68.3 Other acute and subacute respiratory conditions due to chemicals, gases, fumes and vapors; J44.9 Chronic obstructive pulmonary disease, unspecified; I10 Essential (primary) hypertension; Z87.09 Personal history of other diseases of the respiratory system; Z68.34 Body mass index [BMI] 34.0-34.9, adult
CPT/HCPCS: 99153; G0500; J0690; J2250; J3010; J7121

== ENCOUNTER 2022-10-08 10:36 | Emergency (ER) | payer OTHER ==
[~2022-10-08] VITALS: Ht 177.8 cm; Wt 109.3 kg
--- OUTSIDE RECORDS SUMMARY | 2022-10-08 10:38 | XMS ---
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 Ofelia has no Care Guidelines for this patient. Gem VISIT COUNT (12 MO.) 1 NEDA Bowden TOTAL 1 NOTE: Visits indicate total known visits. ED/UCC VISIT TRACKING (12 MO.) 10/08/2022 10:37 NEDA Sau[place] TYPE: Emergency COMPLAINT: - COLD SYMPTOMS, COUGH INPATIENT VISIT TRACKING (12 MO.) No inpatient visits to display in this time frame [email or web address]
[2022-10-08] MEDS ORDERED: PREDNISONE20 MG PO (12:32)
== END 2022-10-08 15:21 | disposition home or self-care (01) ==
LOC: ED 10:36
DX: J44.1 Chronic obstructive pulmonary disease with (acute) exacerbation (principal); Z20.822 Contact with and (suspected) exposure to COVID-19; I10 Essential (primary) hypertension; K21.9 Gastro-esophageal reflux disease without esophagitis; Z88.6 Allergy status to analgesic agent; Z88.8 Allergy status to other drugs, medicaments and biological substances; Z79.899 Other long term (current) drug therapy
CPT/HCPCS: 71045; 87502; 94640; 99285-25; C9803; J7512; U0003

== ENCOUNTER 2023-11-04 11:48 | Emergency (ER) | payer OTHER ==
[~2023-11-04] VITALS: Ht 177.8 cm; Wt 101.9 kg
--- OUTSIDE RECORDS SUMMARY | 2023-11-04 11:50 | XMS ---
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 PHONE: [phone] Ofelia has no Care Guidelines for this patient. EMartha VISIT COUNT (12 MO.) 1 NEDA Mendez Dc TOTAL 1 NOTE: Visits indicate total known visits. ED/UCC VISIT TRACKING (12 MO.) 11/04/2023 11:[address] [facility] [place] TYPE: Emergency COMPLAINT: - SOB, FEVER, BODY ACHES INPATIENT VISIT TRACKING (12 MO.) No inpatient visits to display in this time frame [email or web address]
[2023-11-04] MEDS ORDERED: FLUTICASONE-SA1 EAC5 INH (12:07)
[2023-11-04] MEDS ORDERED: IPRAT-ALBUT 0.5-3 ML INH (12:07)
[2023-11-04] MEDS ORDERED: PANTOPRAZOLE SO40 MG PO (12:07)
[2023-11-04] MEDS ORDERED: ALBUTEROL SULFATE 0.5% 2.5 MG/0.5 ML VIAL INH ONE (12:15)
[2023-11-04] MEDS ORDERED: methylPREDNISolone SOD SUCC 125 MG/2 ML VIAL IV ONE (12:15)
[2023-11-04 12:48] LABS: BASOPHILS 0.1 % (0-2); EOSINOPHILS 0.1 % (0-6); HEMATOCRIT 40.3 % (35.0-50.0); HEMOGLOBIN 13.8 g/dL (12.0-18.0); LYMPHOCYTES 10.5 % (24-44); MCH 30.5 (27-36); MCHC 34.3 g/dl (30-36); MCV 88.8 fl (81-99); MONOCYTES 5.7 % (0-12); NEUTROPHILS 83.6 % (39-80); PLATELET COUNT 291 K/uL (140-440); RBC 4.54 M/ul (4.3-5.7)
[2023-11-04 12:59] LABS: INFLUENZA B NAA NEGATIVE (NEGATIVE); RESPIRATORY SYNCYTIAL VIR NAA NEGATIVE (NEGATIVE)
[2023-11-04 13:02] LABS: ALBUMIN 3.7 g/dL (3.4-5.0); ALBUMIN/GLOBULIN RATIO 1.06 (1.1-2.4); ANION GAP 13.7 (7-21); BILIRUBIN, TOTAL 0.7 ng/dL (0.2-1.0); BUN/CREATININE RATIO 15.95 (6.0-28.6); CALCIUM 9.2 mg/dL (8.5-10.1); CREATININE, SERUM 0.94 mg/dL (0.70-1.30); POTASSIUM 3.7 mmol/L (3.5-5.1); PROTEIN, TOTAL 7.2 g/dL (6.4-8.2)
[2023-11-04] MEDS ORDERED: PREDNISONE20 MG PO (13:23)
[2023-11-04] MEDS ORDERED: ZITHROMAX250 MG PO (13:23)
--- NOTE | 2023-11-04 13:26 | EKG ---
[facility] [address] [place] [address] Signed Normal sinus rhythm Normal ECG When compared with ECG of 21-JAN-2021 13:25, No significant change was found Confirmed by Fred Rojas MD () on 11/04/2023 1:26:11 PM Electronically Signed By: FRED ROJAS MD 11/04/23 1326 PATIENT NAME: KINSTEPHANEBEVERLEY JULIO C Electrocardiogram DATE OF : 64 PHYSICIAN: FRED ROJAS MD REPORT #: [id number] REPORT IS CONFIDENTIAL AND NOT TO BE RELEASED WITHOUT AUTHORIZATION
[2023-11-04 13:44] VITALS: BP 109/59
== END 2023-11-04 13:44 | disposition home or self-care (01) ==
LOC: ED 11:48
PROVIDERS: Emergency Medicine
DX: J44.1 Chronic obstructive pulmonary disease with (acute) exacerbation (principal); D72.829 Elevated white blood cell count, unspecified; I10 Essential (primary) hypertension; K21.9 Gastro-esophageal reflux disease without esophagitis; Z87.891 Personal history of nicotine dependence; Z88.6 Allergy status to analgesic agent; Z88.8 Allergy status to other drugs, medicaments and biological substances; Z79.51 Long term (current) use of inhaled steroids; Z79.899 Other long term (current) drug therapy
CPT/HCPCS: 36415; 71045; 80053; 85025; 87502; 93005; 93010; 94644; 96374; 99285-25; J2930; U0002

== ENCOUNTER 2024-09-17 09:15 | Emergency (ER) | payer OTHER ==
[~2024-09-17] VITALS: Ht 177.8 cm; Wt 106.6 kg
[~2024-09-17 09:15] MED LIST changes: +FLUTICASONE-SA1 EAC5 INH; +IPRAT-ALBUT 0.5-3 ML INH; +PANTOPRAZOLE SO40 MG PO; +ZITHROMAX250 MG PO
[2024-09-17] MEDS ORDERED: DIPHTH,PERTUSS(ACELL),TET VAC 0.5 ML SYRINGE IM ONE (09:30)
[2024-09-17 11:25] VITALS: BP 127/81
== END 2024-09-17 11:27 | disposition home or self-care (01) ==
LOC: ED 09:15
DX: S61.012A Laceration without foreign body of left thumb without damage to nail, initial encounter (principal); S61.201A Unspecified open wound of left index finger without damage to nail, initial encounter; J44.9 Chronic obstructive pulmonary disease, unspecified; I10 Essential (primary) hypertension; Z87.891 Personal history of nicotine dependence; Z88.8 Allergy status to other drugs, medicaments and biological substances; Z79.899 Other long term (current) drug therapy; W26.8XXA Contact with other sharp object(s), not elsewhere classified, initial encounter
CPT/HCPCS: 12001; 90471; 90715; 99282-25

== ENCOUNTER 2025-05-27 11:46 | Emergency (ER) | payer OTHER ==
[~2025-05-27] VITALS: Ht 177.8 cm; Wt 99.0 kg
[~2025-05-27 11:46] MED LIST changes: +HYDROCODON-ACE1 EA10 PO
[2025-05-27] MEDS ORDERED: CELEBREX200 MG (12:07)
[2025-05-27 12:30] LABS: BASOPHILS 0.6 % (0.2-1.2); EOSINOPHILS 1.3 % (0.8-7.0); LYMPHOCYTES 20.0 % (21.8-53.1); MCH 30.5 PG (25.7-32.2); MCHC 33.8 g/dL (32.3-36.5); MCV 90.0 fL (79.0-92.2); MONOCYTES 9.0 % (5.3-12.2); NEUTROPHILS 68.8 % (34.0-67.9); RBC 4.40 M/uL (4.63-6.08)
[2025-05-27 12:50] LABS: AST (SGOT) 794.0 U/L (15-37); GLOMERULAR FILTRATION RATE,EST 108.0 mL/min (>60); PROTEIN, TOTAL 7.4 g/dL (6.4-8.2); UREA NITROGEN 9.0 mg/dL (7-18)
[2025-05-27 12:51] LABS: ALT (SGPT) 1487.0 U/L (14-59)
[2025-05-27] MEDS ORDERED: SODIUM CHLORIDE 0.9% 1,000 ML IV PRN (13:45)
[2025-05-27] MEDS ORDERED: MORPHINE SULFATE 4 MG/ML VIAL IV ONE ×2 (13:45→17:30)
[2025-05-27 15:36] LABS: BLOOD/HGB, URINE NEGATIVE (Negative); KETONE, URINE NEGATIVE (Negative); LEUK ESTERASE, URINE NEGATIVE (negative); NITRITE, URINE NEGATIVE (negative)
[2025-05-27] MEDS ORDERED: MORPHINE SULFATE 4 MG/ML VIAL IV PRN (20:30)
[2025-05-27] MEDS ORDERED: PIPERACILLIN/TAZOBACTAM 4.5 GM in DEXTROSE 5% 100 ML IV SCH (21:00)
[2025-05-27] MEDS ORDERED: LACTATED RINGER'S 1,000 ML IV ONE (21:00)
[2025-05-28 01:59] VITALS: BP 104/54
== END 2025-05-28 02:02 | disposition short-term general hospital (02) ==
LOC: ED 11:46
PROVIDERS: Emergency Medicine
DX: K83.1 Obstruction of bile duct (principal); K86.9 Disease of pancreas, unspecified; Z87.891 Personal history of nicotine dependence; Z88.8 Allergy status to other drugs, medicaments and biological substances; Z79.899 Other long term (current) drug therapy
CPT/HCPCS: 36415; 74177; 80053; 81003; 83690; 85025; 96361; 96374; 96375; 96376; 99285-25; J2270; J2405; J2543; J7030; J7121; Q9967

== ENCOUNTER 2025-06-13 06:54 | Observation (INO) | payer OTHER ==
[~2025-06-13] VITALS: Ht 177.8 cm; Wt 96.4 kg
[~2025-06-13 06:54] MED LIST changes: +CELEBREX200 MG PO; -TYLENOL325 M1; +TYLENOL325 MG PO
--- OUTSIDE RECORDS SUMMARY | 2025-06-13 07:01 | XMS ---
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 Gem VISIT COUNT (12 MO.) 4 NEDA Bowden TOTAL 4 NOTE: Visits indicate total known visits. ED/UCC VISIT TRACKING (12 MO.) 06/13/2025 06:55 NEDA Saucedo OR TYPE: Emergency COMPLAINT: - ABDOMINAL PAIN 05/27/2025 11:47 NEDA Saucedo OR TYPE: Emergency COMPLAINT: - ABDOMINAL PAIN DIAGNOSES: - Allergy status to other drugs, medicaments and biological substances - Disease of pancreas, unspecified - Epigastric pain - Obstruction of bile duct - Other half-way (current) drug therapy - Personal history of nicotine dependence 02/16/2025 09:42 NEDA Saucedo OR TYPE: Emergency COMPLAINT: - SWOLLEN BODY PART DIAGNOSES: - Allergy status to analgesic agent - Allergy status to narcotic agent - Chronic obstructive pulmonary disease, unspecified - Essential (primary) hypertension - Gastro-esophageal reflux disease without esophagitis - Left lower quadrant pain - Localized enlarged lymph nodes - correction (current) use of inhaled steroids - Other half-way (current) drug therapy - Personal history of nicotine dependence 09/17/2024 09:15 NEDA Saucedo OR TYPE: Emergency COMPLAINT: - LT FINGER LACERATION DIAGNOSES: - Allergy status to other drugs, medicaments and biological substances - Chronic obstructive pulmonary disease, unspecified - Contact with other sharp object(s), not elsewhere classified, initial encounter - Essential (primary) hypertension - Laceration without foreign body of left thumb without damage to nail, initial encounter - Other half-way (current) drug therapy - Personal history of nicotine dependence - Unspecified open wound of left index finger without damage to nail, initial encounter INPATIENT VISIT TRACKING (12 MO.) 05/28/2025 05:48 [facility] C[facility] TYPE: General Medicine COMPLAINT: - Pancreatic Mass DIAGNOSES: - Encounter for fitting and adjustment of other specified devices - Obstruction of bile duct - Other specified diseases of pancreas [email or web address]
[2025-06-13] MEDS ORDERED: HYDROmorphone HCL 1 MG/ML SYR IV ONE ×2 (07:15→08:15)
[2025-06-13] MEDS ORDERED: SODIUM CHLORIDE 0.9% 1,000 ML IV ONE (07:15)
[2025-06-13 07:24] LABS: BASOPHILS 0.5 % (0.2-1.2); EOSINOPHILS 0.3 % (0.8-7.0); LYMPHOCYTES 9.0 % (21.8-53.1); MCH 30.3 PG (25.7-32.2); MCHC 34.1 g/dL (32.3-36.5); MCV 89.1 fL (79.0-92.2); MONOCYTES 9.1 % (5.3-12.2); NEUTROPHILS 80.7 % (34.0-67.9); RBC 4.02 M/uL (4.63-6.08)
[2025-06-13 07:47] LABS: ALT (SGPT) 28.0 U/L (14-59); AST (SGOT) 22.0 U/L (15-37); GLOMERULAR FILTRATION RATE,EST 105.0 mL/min (>60); PROTEIN, TOTAL 7.2 g/dL (6.4-8.2); UREA NITROGEN 10.0 mg/dL (7-18)
[2025-06-13] MEDS ORDERED: KETAMINE in NS 50 MG/5 ML SYR IV ONE (08:45)
[2025-06-13] MEDS ORDERED: FAMOTIDINE 20 MG/ 2 ML VIAL IV ONE (09:15)
[2025-06-13] MEDS ORDERED: PIPERACILLIN/TAZOBACTAM 4.5 GM in SODIUM CHLORIDE 0.9% 100 ML IV ONE (09:15)
[2025-06-13] MEDS ORDERED: LACTATED RINGER'S 1,000 ML IV SCH ×3 (09:30→11:30)
[2025-06-13] MEDS ORDERED: fentaNYL citrate 100 MCG/2 ML VIAL IV PRN ×2 (09:30→17:00)
[2025-06-13] MEDS ORDERED: HYDROmorphone HCL 1 MG/ML SYR IV PRN ×2 (09:45→17:00)
[2025-06-13] MEDS ORDERED: OXYCODONE HCL10 MG PO (09:59)
[2025-06-13] MEDS ORDERED: GABAPENTIN600 MG PO (09:59)
[2025-06-13] MEDS ORDERED: FLUTICASONE-SA1 EAC5 INH (10:02)
[2025-06-13] MEDS ORDERED: HYDROCHLOROTHIA25 MG PO (10:06)
[2025-06-13] MEDS ORDERED: SEVOFLURANE 250 ML BTL INH ONE (10:11)
--- NOTE | 2025-06-13 10:45 | NUR ---
REPORT RECIEVED FROM PORSHA ENNIS. PATIENT TRANSPORTED TO ROOM 113 WITH THIS RN VIA A WHEELCHAIR.
[2025-06-13 11:18] VITALS: BP 160/81
[2025-06-13] MEDS ORDERED: FAMOTIDINE 20 MG/ 2 ML VIAL IV SCH (11:20)
[2025-06-13] MEDS ORDERED: MORPHINE SULFATE 10 MG/ML VIAL IV PRN (11:30)
[2025-06-13] MEDS ORDERED: KETOROLAC TROMETHAMINE 30 MG/ML VIAL IV PRN (11:30)
--- NOTE | 2025-06-13 12:00 | NUR ---
PATIENT MEDICATED PER EMAR. PATIENT ADMISSION ASSESSMENT COMPLETED. PATIENT WITHOUT FURTHER NEEDS AT THIS TIME. CALL LIGHT AND PERSONAL BELONGINGS ARE WITHIN REACH.
[2025-06-13] MEDS ORDERED: LIDOCAINE HCL 1% 30 ML SDV ONE (12:30)
[2025-06-13] MEDS ORDERED: fentaNYL citrate 100 MCG/2 ML VIAL ONE (12:30)
[2025-06-13] MEDS ORDERED: SUGAMMADEX SODIUM 200 MG/2 ML ML ONE (12:30)
[2025-06-13] MEDS ORDERED: LIDOCAINE HCL 2% 5 ML SDV ONE (12:30)
[2025-06-13] MEDS ORDERED: ROCURONIUM BROMIDE 50 MG/5 ML SYR ONE ×2 (12:30→15:41)
--- NOTE | 2025-06-13 13:31 | NUR ---
PATIENT TAKEN OFF THE FLOOR TO SURGERY AT THIS TIME.
[2025-06-13] MEDS ORDERED: SODIUM CHLORIDE 0.9% 40 ML IV ONE (13:48)
[2025-06-13] MEDS ORDERED: CEFAZOLIN SODIUM 2 GM in SODIUM CHLORIDE 0.9% 100 ML IV SCH (14:00)
[2025-06-13] MEDS ORDERED: GABAPENTIN300 MG PO (14:13)
--- NOTE | 2025-06-13 14:13 | NUR ---
MED REC COMPLETE
--- NOTE | 2025-06-13 14:48 | NUR ---
UR CLINICAL REVIEW: MCG-PER MCG REVIEW KHALIF OBS FOR GALLBLADDER ISC WITH NEED FOR PROCEDURE AND POST OP PAIN CONTROL EOCCO OBS 06/13/25 @ 0656 ORDER MATCHES REG NO AUTH REQUIRED FOR OBS STAY PER MODA GUIDELINES DISCHARGE TO HOME WHEN STABLE 06/14/25
[2025-06-13] MEDS ORDERED: ACETAMINOPHEN 1,000 MG/100 ML VIAL ONE (15:42)
[2025-06-13] MEDS ORDERED: LACTATED RINGER'S 1,000 ML IV ONE (15:43)
[2025-06-13] MEDS ORDERED: fentaNYL citrate 50 MCG/ML SDV ONE (16:43)
[2025-06-13] MEDS ORDERED: HYDROmorphone HCL 1 MG/ML SYR ONE (16:55)
--- NOTE | 2025-06-13 16:59 | NUR ---
06/13/25 165DEE SOLO 1623 PT ARRIVED TO PACU FROM OR WITH NATURAL AIRWAY. PT BREATHING EQUAL AND UNLABORED, PT ON 6 L OF O2 VIA MASK. PT MOVING AROUND, PT ANSWERING QUESTIONS WITHIN REASON. PT REPORTS 'A LITTLE PAIN BUT NOT MUCH.' PT HAS X5 LAP SITES AND A STEPHANIE THAT IS DRAINING SEROSANUINOUS FLUID. IV ASSESSED ON RIGHT WRIST 20G, RUNNING LR CONTINUOUSLY. DRESSING INTACT. 1624 OXYGEN TAKEN OFF OF PT DUE TO PT DID NOT WANT TO WEAR MASK AND KEPT TAKING IT OFF. OXYGEN STAYING ABOVE 90% ON RA. 1632 PT REPORTING 7/10 NOT TOLERABLE PAIN AT THIS TIME IN ABDOMEN. UMBILIUS LAP SITE REINFORCED WITH GAUZE AND TAPE. CALLED ALEX MISTRY ABOUT PAIN MEDICATION ORDERS. 1636 PT PLACED ON 2L VIA NASAL CANULLA DUE TO PT OXYGEN DROPPING DOWN TO 88%. 1637 SPOKE WITH ALEX Gil CRNA. VERBAL ORDER FOR FENTYNAL 50-100 MCG IV, AND DILAUTED 0.5 UP TO 2 MG IV. 4 ZOFRAN ONCE IV PRN FOR NAUSEA. 1642 CARE TRANSFERRED TO JANUARY Rodriguez RN. REPORT GIVEN. RN AT BEDSIDE WITH PT.
[2025-06-13] MEDS ORDERED: ACETAMINOPHEN 500 MG TAB PO PRN (17:45)
[2025-06-13] MEDS ORDERED: HYDROCODONE/ACETA 5/325 TAB PO PRN (17:45)
[2025-06-13] MEDS ORDERED: IBUPROFEN 600 MG TAB PO PRN (17:45)
[2025-06-13 18:02] VITALS: BP 123/54
[2025-06-13 18:36] VITALS: BP 115/58
--- NOTE | 2025-06-13 19:20 | NUR ---
REPORT RECEIVED FROM PORSHA JIM. PATIENT LAYIN IN BED WITH EYES OPEN NO SIGNS OF DISTRESS. STEPHANIE DRAINING WITH DRY SEROSANGUINOUS DRAINAGE ON LAP SITES. IVF INFUSING WITHOUT DIFFICULTY. NO OTHER NEEDS IDENDTIFIED AT THIS TIME, CALL LIGHT IN REACH.
--- NOTE | 2025-06-13 19:39 | NUR ---
PATIENT LAYING IN BED. PATIENT WAS PROVIDED WITH FRESH WATER AND A WARM WASH CLOTH. PATIENTS CALL LIGHT IS WITH REACH AND NO FURTHER NEEDS AT THIS TIME.
[2025-06-13 19:42] VITALS: BP 119/55
[2025-06-13] MEDS ORDERED: ARFORMOTEROL TARTRATE 15 MCG/2 ML VIAL INH SCH (20:00)
[2025-06-13] MEDS ORDERED: BUDESONIDE 0.5 MG/2 ML VIAL INH SCH (20:00)
[2025-06-13] MEDS ORDERED: IPRATROPIUM BROMIDE 2.5 ML VIAL INH SCH (20:00)
[2025-06-13 20:50] VITALS: BP 123/59
[2025-06-13 21:01] VITALS: BP 123/59
--- NOTE | 2025-06-13 21:15 | NUR ---
ASSESSMENT COMPLETE. PATIENT RESTING IN BED COMFORTABLY, RESPIRATIONS EVEN AND UNLABORED. PRN PAIN MEDICATION GIVEN TO PATIENT FOR 7/10 ABD PAIN. SCHEDULED MEDICATIONS GIVEN. DRESSING CHANGED AT SITE OF STEPHANIE DRAIN. SEROSANGUINOUS DRAINAGE NOTED, SATURATED DRESSING. ALL OTHER LAP SITES WITH DRY DRAINAGE, NO NEW DRAINAGE NOTED AT LAP SITES. NEW GOWN GIVEN TO PATIENT. NO FURTHER NEEDS, CALL LIGHT IN REACH
--- NOTE | 2025-06-13 22:30 | NUR ---
scheduled iv abx infusing per request of primary rn, iv site wnl. no additional needs or concerns, call light in reach.
--- NOTE | 2025-06-13 23:32 | NUR ---
ROUNDED ON PATIENT. PATIENT LAYING ON BACK WITH CPAP ON WITH EYES CLOSED, REPIRSATIONS EVEN AND UNLABORED, IVF INFUSING WITHOUT DIFFICULTY, NO OTHER NEEDS IDENTIFIED, CALL LIGHT IN REACH.
[2025-06-14] VITALS (7 sets, daily range): BP systolic 115–142; BP diastolic 52–63
--- NOTE | 2025-06-14 01:16 | NUR ---
PRN PAIN MEDICATION GIVEN TO PATIENT PER REQUEST FOR 9/10 PAIN FOLLOWING AMBULATING TO RESTROOM. PATIENT DENIES FURTHER NEEDS, RESTING WITH CPAP IN PLACE, IVF CONTINUING TO INFUSE PER ORDER. CALL LIGHT IN REACH
--- NOTE | 2025-06-14 02:25 | NUR ---
VS TAKEN AND DOCUTMENTED. PT LAYING IN BED ON BACK WITH EYES OPEN AND CPAP IN PLACE. PAIN REASSESSMENT OF 02/25. PATIENT GIVEN WATER, BEDISDE TABLE WITHIN REACH, NO OTHER NEEDS AT THIS TIME, CALL LIGHT IN REACH.
--- NOTE | 2025-06-14 04:22 | NUR ---
ROUNDED ON PATIENT. PATIENT LAYING ON BACK IN BED WITH EYES OPEN WATCHING TV. STEPHANIE DRAIN ASSESSED AND EMPTIED, PATIENT STATED HE WAS HAVING 8/10 PAIN IN ABD AFTER A "COUGHING SPELL" PRN PAIN MEDS GIVEN PER EMAR. ABD ASSESSEMENT PERFORMED. IVF INFUSING WITHOUT DIFFICUTLY. BEDISDE TABLE AND BELONGINGS AT BEDSIDE, CALL LIGHT IN REACH.
[2025-06-14 05:19] LABS: BLOOD/HGB, URINE NEGATIVE (Negative); KETONE, URINE NEGATIVE (Negative); LEUK ESTERASE, URINE NEGATIVE (negative); NITRITE, URINE NEGATIVE (negative)
--- NOTE | 2025-06-14 05:20 | NUR ---
PATIENTS PAIN REASSESSED AND STATED A 03/27. SCENIC DESIGNER IN ROOM TAKING PATIENTS VITALS. PATIENT LAYING IN BED SUPINE WITH CPOX, IVF INFUSING WITHOUT DIFFICUTLY. NO OTHER NEEDS IDENTIFIED. CALL LIGHT IN REACH.
--- NOTE | 2025-06-14 06:43 | NUR ---
PATIENT ANTIBIOTIC HUNG. PT RESTING IN BED WITH EYES OPEN WATCHING TV. PATIENT DENIED ANY NEEDS. CALL LIGHT IN REACH.
--- NOTE | 2025-06-14 08:13 | NUR ---
AM ASSESSMENT COMPLETE - PT IN SEVERE PAIN IN RLQ PAIN AROUND STEPHANIE SITE. STEPHANIE DRAINING SEROSANG FLUID. SOME DRAINAGE AROUND DRESSING. PT DENIES NAUSEA. STATES THAT PAIN IS INCREASED R/T COUGHING ALL NIGHT. PT PROVIDED SPLINT FOR ABD WHEN COUGHING. PRN MORPHINE ADMINISTERED. RT IN ROOM TO PROVIDE TREATMENT.
--- NOTE | 2025-06-14 09:23 | NUR ---
PT CALL LIGHT ON, THIS RN TO ASSITS PATIENT. PT WOULD LIKE TO USE BATHROOM, 1SBA/FWW TO BATHROOM, PT STEADY. BED TIDIED UP, PT WILL SIT IN CHAIR AFTER USING BATHROOM, WOULD LIKE SOMETIME IN BATHROOM FOR BM. WINDOW CURTAINS RAISED.
--- NOTE | 2025-06-14 09:39 | NUR ---
PT URINATED IN TOILET. AMBULATED WITH WALKER FROM BED TO TOILET THEN TO HIS CHAIR. LINEN CHANGE COMPLETE AND DINAH PLACED IN CHAIR PRIOR TO PT SITTING DOWN. PT IN A LOT OF PAIN, REPORTED TO RN.
--- NOTE | 2025-06-14 09:52 | NUR ---
PT USED THE REST ROOM, THEN MOVED TO SIT IN THE CHAIR. PT REPORTED PULLING ON HIS STEPHANIE DRAIN - I LOOKED AT IT AND REPORTED TO PORSHA SHAH. RN ALSO LOOKED AT THE DRAIN SITE. PT SITTING IN CHAIR - LINEN CHANGE COMPLETED AND TRASH REMOVED FROM ROOM. PT HAS WATER, NO ICE BY HIS CHAIR AND CALL LIGHT ALSO WITHIN REACH. PT WATCHING TV, NO VISITORS. ROOM CLEANED.
--- NOTE | 2025-06-14 11:40 | NUR ---
pt sitting up in chair. reports pain is better.
--- NOTE | 2025-06-14 13:12 | NUR ---
RECIEVED HAND OFF REPORT FROM PORSHA NESS
[2025-06-14] MEDS ORDERED: IBUPROFEN600 MG PO (13:15)
[2025-06-14] MEDS ORDERED: HYDROCODON-ACE1 EA10 PO (13:16)
[2025-06-14] MEDS ORDERED: TYLENOL EXTRA500 MG PO (13:19)
--- NOTE | 2025-06-15 10:42 | EKG ---
[facility] [address] [facility] [place] [address] Signed Normal sinus rhythm Inferior-posterior infarct (cited on or before 17-DEC-2023) Abnormal ECG When compared with ECG of 17-DEC-2023 01:33, Questionable change in initial forces of Inferior leads Confirmed by Otilio Wall DO ([id number]) on 06/15/2025 10:41:55 AM Electronically Signed By: OTILIO WALL DO 06/15/25 1042 PATIENT NAME: TAYLORBEVERLEY AL Electrocardiogram DATE OF : 64 PHYSICIAN: OTILIO WALL DO REPORT #: [id number] REPORT IS CONFIDENTIAL AND NOT TO BE RELEASED WITHOUT AUTHORIZATION
--- NOTE | 2025-06-15 13:51 | HP ---
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 HISTORY OF PRESENT ILLNESS: This 65-year-old white man has been diagnosed with Dariel cell carcinoma managed by Oncology Division at [facility]. He was seen on May 27, 2025 showing a large pancreatic head mass causing biliary obstruction at the level of pancreatic head with moderate distention of the gallbladder and gallstones. He was transferred to [place], [place] and underwent stenting of the biliary tract and much improvement has been noted. Today, however, he presented to emergency room where he was evaluated once again by Dr. Omalley with complaints of severe right upper abdominal pain. A biopsy had been performed of the pancreatic lesion, which has culminated and a plan for chemotherapy infusion and radiation to be performed June 19. He additionally has diagnosis of metastatic dariel cell carcinoma, with left groing adenopathy and without known skin primary. Evaluation in the emergency room included a CT scan, which showed gallbladder stones and sludge with gallbladder wall thickening and marked pericholecystic inflammation. The progression of his inflammation has been significant since his CT scan nearly 20 days ago. There was left iliac and inguinal adenopathy also noted. PAST MEDICAL HISTORY: Includes: 1. History of appendectomy. 2. Right hip operation. 3. Right eye surgery. The patient describes having metal within his orbit related to trauma in the past. ALLERGIES: He has allergies to aspirin and trazodone. MEDICATIONS: At presentation include primarily: 1. [place] for pain control. 2. Pantoprazole. 3. Albuterol. 4. Amlodipine. Electronically Signed By: SG BENAVIDES MD 06/15/25 1351 PATIENT NAME: BEVERLEY VAZQUEZ HISTORY AND PHYSICAL DATE OF : 64 REPORT #: [id number] PHYSICIAN: SG BENAVIDES MD PCP: DOMINGO KELESY DO REPORT IS CONFIDENTIAL AND NOT TO BE RELEASED WITHOUT AUTHORIZATION [facility] [address] [place], [place] [address] Signed 5. Montelukast. 6. Atorvastatin. 7. Celecoxib. 8. Amitriptyline. 9. Flomax. 10. Gabapentin. 11. Bisoprolol. 12. Vitamin B12. 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 REVIEW OF SYSTEMS: Denies any shortness of breath. He has had profound nausea. He has significant abdominal pain still despite medication administration. Denies any shortness of breath or chest pain. PHYSICAL EXAMINATION: GENERAL: Pleasant white man who looks to be less uncomfortable, having received medication just before seeing him. VITAL SIGNS: Height is 5 feet 10 inches, weight is 96.4 kg, BMI is 30.5. O2 saturation is 93% on room air. Temperature is 98, pulse 74, respiratory rate 18. NECK: Trachea is midline. He has no cervical adenopathy. He is edentulous. CHEST: Clear. HEART: Regular without murmur. ABDOMEN: Mildly obese. Marked tenderness is noted in the epigastric and subcostal area. I detect no mass. EXTREMITIES: Show no clubbing, cyanosis, or edema. IMAGING: Review of his CT scan undertaken, which shows some distention of the stomach, but a markedly dilated gallbladder with what appears to be dependent sludge or possibly stone. The biliary stent is well positioned based on the coronal section on the CT scan. The liver appears normal. I see no evidence of metastatic disease to it. ASSESSMENT: The patient has rather significant acute calculous cholecystitis with dilation of the gallbladder. I have recommended continued fluid resuscitation, IV antibiotics, parenteral pain medication, and today to undergo cholecystectomy preferably by laparoscopic approach. The risk of bleeding, infection, bile duct injury (less likely now) and need for other indicated procedures. He understands and wished to proceed. We will get things set up at this point for operation today. Electronically Signed By: SG BENAVIDES MD 06/15/25 1351 PATIENT NAME: BEVERLEY VAZQUEZ HISTORY AND PHYSICAL DATE OF : 64 REPORT #: [id number] PHYSICIAN: SG BENAVIDES MD PCP: DOMINGO KELSEY DO REPORT IS CONFIDENTIAL AND NOT TO BE RELEASED WITHOUT AUTHORIZATION [address] [address] Signed MD FABRICIO Schultz/ANITHAL /[id number] cc: DO Michael Jones MD [facility] Copies: DOMINGO KELSEY DO ~ Electronically Signed By: SG BENAVIDES MD 06/15/25 1351 PATIENT NAME: BEVERLEY VAZQUEZ JULIO C HISTORY AND PHYSICAL DATE OF : 64 REPORT #: [id number] PHYSICIAN: SG BENAVIDES MD PCP: DOMINGO KELSEY DO REPORT IS CONFIDENTIAL AND NOT TO BE RELEASED WITHOUT AUTHORIZATION
--- NOTE | 2025-06-15 13:51 | OR ---
[facility] [address] [place], [place] [address] Signed DATE OF OPERATION: 06/13/2025 SURGEON: Sg Benavides MD PREOPERATIVE DIAGNOSES: 1. Acute calculous cholecystitis. 2. Metastatic Dariel cell carcinoma. 3. Pancreatic head neoplasm. 4. Recent biliary stenting on May 27, 2025. POSTOPERATIVE DIAGNOSIS: Gangrenous cholecystitis without obvious gallstones. PROCEDURES: 1. Laparoscopic cholecystectomy with intraoperative cholangiogram, prolonged, complicated, difficult. 2. Surgeon-directed fluoroscopy. ANESTHESIA: General endotracheal, Atiya Shamika, METER REPAIRER HELPER and local 10 mL of 0.25% Marcaine with epinephrine. INDICATION: This 65-year-old white man is a patient of Dr. Nicolas Kelsey. He was recently diagnosed with biliary obstruction in early May and transferred to [facility] in [place] and undergoing a biliary stent as he appeared to have a pancreatic neoplasm. The patient has adenopathy of the groin and is considered to have metastatic Dariel cell carcinoma. I do not know of any primary tumor for the skin in this regard, however. He has been under the care of physicians at [facility], anticipating radiation and chemotherapy in early June. He presented to the emergency room today and evaluated thoroughly by Dr. Kenyon with severe inflammation and peritonitis and a CT scan performed showed dilated gallbladder with pericholecystic fluid, sludge, and possible stones. He has been fluid resuscitated, given intravenous antibiotics and now to undergo cholecystectomy preferred by laparoscopic approach. The risk of bleeding, infection, bile duct injury, need for open procedure, and so forth were all reviewed with him. He understands wished to proceed. Electronically Signed By: SG BENAVIDES MD 06/15/25 1351 PATIENT NAME: BEVERLEY VAZQUEZ OPERATIVE REPORT DATE OF : 64 REPORT #: [id number] PHYSICIAN: SG BENAVIDES MD PCP: NICOLAS KELSEY DO REPORT IS CONFIDENTIAL AND NOT TO BE RELEASED WITHOUT AUTHORIZATION [facility] [address] [place], [place] [address] Signed FINDINGS: The gallbladder was gangrenous. Dense omental adhesions engulfed the gallbladder. Ultimately, the omental rind was removed. The gallbladder was quite markedly inflamed with areas of radha gangrene, but no actual perforation yet. Cholecystectomy was performed laparoscopically, which was prolonged, complicated, and difficult. There appeared to be some possible perihilar adenopathy as relates to the cystic duct, however, the cystic duct was able to be identified and although thickened and fibrotic allowing for cholangiogram. The cholangiogram showed free flow of contrast in the biliary tree with prompt emptying into the duodenum. I did not see actual stones that I saw no particular stent based on resolution of the monitor we have at hand. The gallbladder once excised and opened on the back table, did not have stones, but did have severe inflammation with areas of gangrenous change. The liver appeared free of any metastatic disease. There was no evidence of carcinomatosis proper. DESCRIPTION OF PROCEDURE: The patient was brought to the operating room, given a general endotracheal anesthetic. Preoperative antibiotic piperacillin had been given and additionally preoperatively Ancef. After satisfactory general endotracheal anesthesia, the abdomen was prepared with chlorhexidine solution and draped sterilely. A slight umbilical hernia was noted. An incision was made inferior to the umbilicus and using an open Celeste cannula technique, pneumoperitoneum was achieved to a level of 14 mmHg of carbon dioxide gas. Intra-abdominal inspection showed the gallbladder to be obscured by omental adhesions. The liver looked reasonably normal. No sign of metastatic disease and no obvious carcinomatosis proper. A 12 mm epigastric port was placed as was the midclavicular and right anterior axillary line port. Attempts at grasping the gallbladder were impossible as it was not visualized and was densely adherent to the omentum. With various maneuvers and blunt dissection, the rind forming from the omentum and relation to the gallbladder could be bluntly . The apex of the gallbladder showed marked inflammation and gangrenous changes. Grasping of the gallbladder was not possible as it was thickened and dense and on that basis, decompression was undertaken with laparoscopic needle device. Dark bile was noted. This allowed decompression of the gallbladder enough that the omental rind could be bluntly. Ultimately, the infundibulum was visualized. An additional 5 mm port was placed and using a fan retractor, the duodenum and other viscera were retracted inferiorly and medially to allow for better visualization of the gallbladder proper. Using blunt electrocautery dissection, the triangle of Calot was dissected free ultimately identifying a thickened cystic duct. There appeared to be some periportal adenopathy, though this was not entirely certain. A window was created to identify the cystic duct more fully and the clip applied across gallbladder cystic duct junction. The tissue was quite markedly thickened. A transverse choledochotomy was made in the cystic duct. There was no egress of clear Electronically Signed By: SG BENAVIDES MD 06/15/25 1351 PATIENT NAME: BEVERLEY VAZQUEZ OPERATIVE REPORT DATE OF : 64 REPORT #: [id number] PHYSICIAN: SG BENAVIDES MD PCP: NICOLAS KLESEY DO REPORT IS CONFIDENTIAL AND NOT TO BE RELEASED WITHOUT AUTHORIZATION [facility] [address] [place], [place] [address] Signed bile or anything of that sort. Using the Mazariegos type cholangiocatheter, intraoperative cholangiography was undertaken showing free flow of contrast in biliary tree with some distortion distally, but good flow into the duodenum. No doubt in relation to the biliary stent. Showing no sign of common duct obstruction. Catheter was removed and the cystic duct was doubly clipped. It was distally secured with an endo-loop. The gallbladder was then dissected free in a retrograde fashion using electrocautery. Gallbladder was placed in an endobag and extracted through the infraumbilical port site after enlarging the aperture. there were no stones within the gallbladder that was quite markedly diseased. Photograph was taken. Attention was turned to the subhepatic space. Electrocautery was used for hemostasis. To be extra cautious, a bit of Aime hemostatic agent was insufflated to the subhepatic space. There was no sign of bile leak. Through a right-sided trocar site, a 5 mm Aris drain was placed in the subhepatic space. Secured the skin with nylon suture. The trocars removed under direct visualization showing no sign of bleeding. The infraumbilical fascial incision was reapproximated with interrupted 0 Vicryl suture. Irrigation was undertaken. A 10 mL of 0.25% Marcaine with epinephrine was injected locally. The skin was then closed with interrupted 3-0 Vicryl. Steri-Strips were applied. He was ultimately extubated and transferred to the recovery room in good condition having suffered no complication. Sponge, needle, and instrument counts reported as correct x3. MD FABRICIO Schultz/MODL /[id number] cc: Dr. Michael Kelsey DO Copies: NICOLAS KELSEY DO ~ Electronically Signed By: SG BENAVIDES MD 06/15/25 1351 PATIENT NAME: BEVERLEY VAZQUEZ OPERATIVE REPORT DATE OF : 64 REPORT #: [id number] PHYSICIAN: SG BENAVIDES MD PCP: NICOLAS KELSEY DO REPORT IS CONFIDENTIAL AND NOT TO BE RELEASED WITHOUT AUTHORIZATION
--- NOTE | 2025-06-18 16:12 | PATH ---
[facility] [address] [place], [place] [address] Signed SPECIMEN(S): A GALLBLADDER AND CONTENTS SPECIMEN SOURCE: A. GALLBLADDER AND CONTENTS CLINICAL HISTORY: Cholecystitis cholelithiasis FINAL PATHOLOGIC DIAGNOSIS: Gallbladder and contents: - Acute and chronic calculous cholecystitis. JVR:kevin MICROSCOPIC EXAMINATION: Histologic sections of all submitted blocks are examined by light microscopy. These findings, together with the gross examination, support the pathologic diagnosis. GROSS DESCRIPTION: The specimen, labeled and designated "Magdiel Win, gallbladder and contents per requisition," is received in formalin and consists of Specimen: Surgically disrupted gallbladder. Dimensions: 12.7 x 5.5 x 3.8 cm. Serosa: Hoang-pink and smooth with scant amount of purulent material present diffusely. Cystic Duct: Unobstructed, inked. Calculi: Present�there are 2 black spiculated calculi averaging 0.3 cm in greatest dimension.. Mucosa: Hoang-brown and velvety with diffuse necrotic plaque primarily focused around the fundus. Wall thickness: 0.3 to 0.5 cm. Lymph node: No pericystic lymph nodes are grossly identified. Additional: None. Electron Beam Welding Machine Operator sections are submitted in (A1). AA (under the direct supervision of a pathologist) The Gross Description was prepared using a voice recognition system. The report was reviewed for accuracy; however, sound-alike word errors, addition and/or deletions may occur. If there is any question about this report, please contact Client Services. PATIENT NAME: BEVERLEY WIN PATHOLOGY DATE OF : 64 REPORT #: [id number] PHYSICIAN: VALERIE HAYWOOD PCP: DOMINGO KELSEY DO REPORT IS CONFIDENTIAL AND NOT TO BE RELEASED WITHOUT AUTHORIZATION [facility] [address] [place], [place] [address] Signed PERFORMING LABORATORY: Technical component was performed by [facility], [address] [place] [address] (CLIA# [id number]). Professional interpretation was performed by [facility] - [address] [address] (CLIA#: [id number]). Diagnostician: Jono Kapoor MD Pathologist Electronically Signed 06/18/2025 Copies: ~ PATIENT NAME: BEVERLEY WIN PATHOLOGY DATE OF : 64 REPORT #: [id number] PHYSICIAN: VALERIE HAYWOOD PCP: DOMINGO KELSEY DO REPORT IS CONFIDENTIAL AND NOT TO BE RELEASED WITHOUT AUTHORIZATION
== END 2025-06-14 14:15 | disposition home or self-care (01) ==
LOC: ED 06:54 → MS 06:56
PROVIDERS: Emergency Medicine; ADMIT Surgery; ATTEND Surgery
PROC: BF11YZZ Fluoroscopy of Biliary and Pancreatic Ducts using Other Contrast (ICD-10-PCS; 2025-06-13)
PROC: 0FT44ZZ Resection of Gallbladder, Percutaneous Endoscopic Approach (ICD-10-PCS; principal; 2025-06-13 14:00)
DX: K80.12 Calculus of gallbladder with acute and chronic cholecystitis without obstruction (principal); C4A.9 Merkel cell carcinoma, unspecified; C25.0 Malignant neoplasm of head of pancreas; I10 Essential (primary) hypertension; J44.9 Chronic obstructive pulmonary disease, unspecified; K21.9 Gastro-esophageal reflux disease without esophagitis; Z87.891 Personal history of nicotine dependence; Z88.8 Allergy status to other drugs, medicaments and biological substances; Z79.899 Other long term (current) drug therapy
CPT/HCPCS: 00813; 36415; 74177; 74300; 80053; 81003; 83605; 83690; 85025; 88304; 93005; 93010; 94640; 94660; 94762; 96365; 96367; 96375; 96376; 99285-25; G0378; J0131; J0688; J1171; J1790; J2003; J2270; J2405; J2543; J2704; J3010; J3490; J7030; J7121; J7605; Q9967